=== PATIENT | female | born 1960 ===

== ENCOUNTER 2017-06-30 23:45 | Emergency (ER) | payer MEDICAID ==
[2017-07-01 00:11] VITALS: RESP 18; TEMP 98.7; O2SAT 97
[2017-07-01] MEDS ORDERED: Sodium Chloride 0.9% 1,000 ML IV STA (00:48)
--- NOTE | 2017-07-01 00:49 | ED PDOC ---
Arrival/HPI - General Chief Complaint: Back Pain Time Seen by Provider: 07/01/17 00:44 Historian: Patient - History of Present Illness Narrative History of Present Illness (Text): 07/01/17 00:45 A 56 year old female, with no significant past medical history, presents to the emergency department complaining of R sided abdominal pain since yesterday evening at 1:00. Patient reports pain radiates to right flank. Earlier today, patient found contents of blood when wiping. Patient notes experiencing nausea and increasing urinary frequency since yesterday, but denies of any fever, vomiting, diarrhea, constipation, dysuria, foul odor or discoloration to urine, or any other complaints. Also, patient mentions past surgical history of an appendectomy. Pt lion has known hx gallstones No PMD 07/01/17 04:48 Time/Duration: 24 hours (yesterday 1:00 in the evening) Symptom Onset: Sudden Symptom Course: Unchanged Past Medical History - Provider Review Nursing Documentation Reviewed: Yes - Reproductive Menopause: Yes (3 years ago) - Cardiac Hx Cardiac Disorders: Yes Hx Hypertension: Yes - Pulmonary Hx Respiratory Disorders: Yes Hx Asthma: Yes - Endocrine/Metabolic Hx Endocrine Disorders: Yes Hx Diabetes Mellitus Type 2: Yes - Gastrointestinal Hx Gastrointestinal Disorders: Yes Hx Gastritis: Yes - Psychiatric Hx Substance Use: No - Surgical History Hx Appendectomy: Yes Hx Tubal Ligation: Yes Family/Social History - Physician Review Nursing Documentation Reviewed: Yes Family/Social History: No Known Family HX Smoking Status: Never Smoked Hx Alcohol Use: No Hx Substance Use: No Allergies/Home Meds Allergies/Adverse Reactions: Allergies aspirin Allergy (Verified 07/01/17 00:09) SWELLING Home Medications: Home Meds Medication Instructions Recorded Confirmed Albuterol HFA [Ventolin HFA 90 2 puff IH PRN PRN 07/01/17 07/01/17 mcg/actuation (8 g)] Irbesartan 100 mg PO BID 07/01/17 07/01/17 Ranitidine HCl [Zantac 300] 300 mg PO BID 07/01/17 07/01/17 metFORMIN [glucOPHAGE] 500 mg PO BID 07/01/17 07/01/17 Review of Systems - Physician Review All systems were reviewed & negative as marked: Yes - Review of Systems Constitutional: absent: Fevers Gastrointestinal: Abdominal Pain (RLQ radiating to right flank (chief complaint non-contributory), Nausea. absent: Constipation, Vomiting Genitourinary Female: Frequency (increasing urinary frequency since yesterday). absent: Dysuria, Urine Output Changes (no foul odor or discoloration to urine) Physical Exam Vital Signs Reviewed: Yes Vital Signs Temp Pulse Resp BP Pulse Ox 07/01/17 02:58 85 18 157/86 H 97 07/01/17 00:10 98.7 F 108 H 18 176/80 H 97 Temperature: Afebrile Blood Pressure: Hypertensive Pulse: Regular Respiratory Rate: Normal Appearance: Positive for: Well-Appearing Pain Distress: None Mental Status: Positive for: Alert and Oriented X 3 - Systems Exam Head: Present: Atraumatic, Normocephalic Pupils: Present: PERRL Extroacular Muscles: Present: EOMI Conjunctiva: Present: Normal Mouth: Present: Moist Mucous Membranes Neck: Present: Normal Range of Motion Respiratory/Chest: Present: Clear to Auscultation, Good Air Exchange. No: Respiratory Distress, Accessory Muscle Use Cardiovascular: Present: Regular Rate and Rhythm, Normal S1, S2. No: Murmurs Abdomen: Present: Normal Bowel Sounds. No: Tenderness, Distention, Peritoneal Signs Rectal: No: Hemorrhoids Genitourinary/Pelvic Exam: No: Cervical Motion Tendernes Back: No: CVA Tenderness Upper Extremity: Present: NORMAL PULSES (+2 pulses). No: Cyanosis Lower Extremity: Present: Normal Inspection. No: Edema Neurological: Present: GCS=15, CN II-XII Intact, Speech Normal Skin: Present: Warm, Dry, Normal Color. No: Rashes Psychiatric: Present: Alert, Oriented x 3, Normal Insight, Normal Concentration Medical Decision Making ED Course and Treatment: 07/01/17 00:49 Impression: 56 year old female with RLQ abdominal pain radiating to right flank. Differential Diagnosis included but are not limited to: UTI vs. Renal Colic vs. Colitis Plan: -- Labs -- Urinalysis -- Morphine -- IV Fluids -- Gallbladder Ultrasound -- Reassess and disposition Progress Notes: 07/01/17 01:52 Labs have been reviewed and findings are unremarkable except for elevation in LFTs. Gallbladder Ultrasound to be ordered to rule out possible cholecystitis. 07/01/2017 04:13 Gallbladder Ultrasound FINDINGS: Liver: Fatty infiltration. No mass. No intrahepatic ductal dilatation. gallbladder: Gallstones. No wall thickening. No pericholecystic fluid. No sonographic Cruz's sign. common bile duct: Up to 0.75 cm in diameter. No stones. Pancreas: Unremarkable as visualized. Right kidney: Normal echogenicity. No hydronephrosis. IMPRESSION: 1. Cholelithiasis. 2. Mild biliary ductal dilatation. Consider MRCP. 3. Incidental/non-acute findings are described above. Dictator: Anthony Soto MD 07/01/17 04:36 Due to lack of signs of any present cholecystitis, without patient management due to biliary ductal dilatation, patient will be given opioids and instructed to come back if there is any worsening of fever or vomiting. Otherwise contact surgeon for cholecysectomy. - Lab Interpretations Lab Results: 07/01/17 00:54 07/01/17 01:10 Lab Results 07/01/17 01:10: Sodium 139, Potassium 4.6, Chloride 98, Carbon Dioxide 32, Anion Gap 14, BUN 11, Creatinine 0.7, Est GFR ( Amer) > 60, Est GFR (Non- Af Amer) > 60, Random Glucose 247 H, Calcium 10.1, Total Bilirubin 0.8, AST 115 H, ALT 138 H, Alkaline Phosphatase 111, Total Protein 8.6 H, Albumin 4.5, Globulin 4.0, Albumin/Globulin Ratio 1.1, Amylase 111 07/01/17 00:54: WBC 6.0, RBC 4.24, Hgb 13.4, Hct 38.0, MCV 89.6, MCH 31.6, MCHC 35.3, RDW 12.2, Plt Count 261, MPV 10.1, Gran % 59.2, Lymph % (Auto) 31.6, [place] % (Auto) 6.7 H, Eos % (Auto) 2.0, Baso % (Auto) 0.5, Gran # 3.52, Lymph # 1.9, [place] # 0.4, Eos # 0.1, Baso # 0.03 07/01/17 00:30: Urine Color Yellow, Urine Appearance Clear, Urine pH 6.0, Ur Specific [place] 1.025, Urine Protein 100 H, Urine Glucose (UA) 250 H, Urine Ketones 15 H, Urine Blood Trace-intact H, Urine Nitrate Negative, Urine Bilirubin Negative, Urine Urobilinogen 0.2, Ur Leukocyte Esterase Negative, Urine RBC 0 - 2, Urine WBC 0 - 2, Ur Epithelial Cells 0 - 2 I have reviewed the lab results: Yes - RAD Interpretation Radiology Orders: 07/01/17 01:49 GALLBLADDER & COMMON DUCT [US] Stat - Medication Orders Current Medication Orders: Sodium Chloride (Sodium Chloride 0.9%) 1,000 mls @ 100 mls/hr IV .Q10H STA Stop: 07/01/17 10:47 Last Admin: 07/01/17 01:14 Dose: 100 mls/hr eMAR Start Stop Document 07/01/17 01:14 OCS (Rec: 07/01/17 01:14 OCS [id number]) Intravenous Solution Start Date 07/01/17 Start Time 01:14 Discontinued Medications Morphine Sulfate (Morphine) 2 mg IVP STAT STA Stop: 07/01/17 00:55 Last Admin: 07/01/17 01:14 Dose: 2 mg MAR Pain Assessment Document 07/01/17 01:14 OCS (Rec: 07/01/17 01:16 OCS [id number]) Pain Reassessment Is this a pain reassessment? Yes Sleep Is patient sleeping during reassessment? No Presence of Pain Presence of Pain Yes Pain Scale Used Pain Scale Used Numeric Description Description Constant IVP Administration Document 07/01/17 01:14 OCS (Rec: 07/01/17 01:16 OCS [id number]) Charges for Administration # of IVP Administrations 1 Morphine Sulfate (Morphine) 4 mg IVP STAT STA Stop: 07/01/17 01:54 Last Admin: 07/01/17 02:03 Dose: 4 mg MAR Pain Assessment Document 07/01/17 02:03 OCS (Rec: 07/01/17 02:03 OCS [id number]) Pain Reassessment Is this a pain reassessment? Yes Sleep Is patient sleeping during reassessment? No Presence of Pain Presence of Pain Yes Pain Scale Used Pain Scale Used Numeric IVP Administration Document 07/01/17 02:03 OCS (Rec: 07/01/17 02:03 OCS [id number]) Charges for Administration # of IVP Administrations 1 Oxycodone/Acetaminophen (Percocet 5/325 Mg Tab) 2 tab PO STAT STA Stop: 07/01/17 04:38 - Scribe Statement The provider has reviewed the documentation as recorded by the Scribe Hanan Dabdi Provider Yuni Attestation: All medical record entries made by the Yuni were at my direction and personally dictated by me. I have reviewed the chart and agree that the record accurately reflects my personal performance of the history, physical exam, medical decision making, and the department course for this patient. I have also personally directed, reviewed, and agree with the discharge instructions and disposition. Disposition/Present on Arrival - Present on Arrival Any Indicators Present on Arrival: No History of DVT/PE: No History of Uncontrolled Diabetes: No Urinary Catheter: No History of Decub. Ulcer: No History Surgical Site Infection Following: None - Disposition Have Diagnosis and Disposition been Completed?: Yes Diagnosis: Biliary colic Disposition: HOME/ ROUTINE Disposition Time: 04:52 Patient Plan: Discharge Condition: FAIR Discharge Instructions (ExitCare): Biliary Colic (ED) Print Language: SOUTH SUDANESE Additional Instructions: Call surgeon for appt to arrange elective cholecystectomy.Return to ED for worsening pain,fever,vomiting Prescriptions: Acetaminophen/Hydrocodone Bi [Vicodin 300 mg-5 mg] 1 tab PO QID PRN #10 tab PRN Reason: Pain, Mild (1-3) Referrals: Umesh Sharma MD [Medical Doctor] - Follow up with primary Forms: Hua Kang (Montenegrin)
[2017-07-01] MEDS ORDERED: Morphine 2 mg/ml ISec IVP STA (00:54)
[2017-07-01 01:04] LABS: BASO # 0.03 K/mm3 (0.0-2.0); BASO % 0.5 % (0.0-3.0); EOS # 0.1 (0.0-0.7); GRAN # 3.52 (1.4-6.5); GRAN % 59.2 % (50.0-68.0); LYMPH # 1.9 (1.2-3.4); LYMPH % 31.6 % (22.0-35.0); MEAN CELL VOLUME 89.6 fl (80.0-105.0); MEAN CORPUSCULAR HEMOGLOBIN 31.6 pg (25.0-35.0); MEAN CORPUSCULAR HGB CONC 35.3 g/dl (31.0-37.0); MEAN PLATELET VOLUME 10.1 fl (7.0-11.0); MONO # 0.4 (0.1-0.6); MONO % 6.7 % (1.0-6.0); RED CELL DISTRIBUTION WIDTH 12.2 % (11.5-14.5)
[2017-07-01 01:05] LABS: URINE BILIRUBIN NEGATIVE (NEGATIVE); URINE BLOOD TRACE-INTACT (NEGATIVE); URINE GLUCOSE (UA) 250 mg/dL (NEGATIVE); URINE KETONE 15 mg/dL (NEGATIVE); URINE LEUKOCYTE ESTERASE NEGATIVE Leu/uL (NEGATIVE); URINE PROTEIN 100 mg/dL (<30 mg/dL); URINE UROBILINOGEN 0.2 E.U./dL (<1 E.U./dL)
[2017-07-01 01:10] LABS: URINE APPEARANCE CLEAR (CLEAR); URINE COLOR YELLOW (YELLOW)
[2017-07-01 01:24] LABS: URINE EPITHELIAL CELLS 0 - 2 /hpf (0-5); URINE RBC 0 - 2 /hpf (0-2); URINE WBC 0 - 2 /hpf (0-6)
[2017-07-01 01:34] LABS: ALB/GLOB RATIO 1.1 (1.1-1.8); ALKALINE PHOSPHATASE 111 U/L (38-126); ALT/SGPT 138 U/L (7-56); AMYLASE 111 U/L (35-125); AST/SGOT 115 U/L (14-36); BILIRUBIN,TOTAL 0.8 mg/dL (0.2-1.3); BLOOD UREA NITROGEN 11 mg/dL (7-21); CALCIUM 10.1 mg/dL (8.4-10.5); CARBON DIOXIDE 32 mmol/L (21-33); CHLORIDE 98 mmol/L (95-110); GFR AFRICAN-AMERICAN > 60; GLUCOSE,RANDOM 247 mg/dL (70-110); POTASSIUM 4.6 mmol/L (3.6-5.0); SODIUM 139 mmol/L (132-148); TOTAL PROTEIN 8.6 g/dL (5.8-8.3)
[2017-07-01] MEDS ORDERED: Morphine 4 mg/ml ISec IVP STA (01:53)
[2017-07-01 03:01] VITALS: BP 157/86; PULSE 85
--- NOTE | 2017-07-01 04:13 | US ---
EXAM: US Abdomen Limited, Right Upper Quadrant CLINICAL HISTORY: 56 years old, female; Pain; Abdominal pain; Generalized; Additional info: R sided abd pain, lfts elevated TECHNIQUE: Real-time ultrasound of the right upper quadrant with image documentation. COMPARISON: No relevant prior studies available. FINDINGS: Liver: Fatty infiltration. No mass. No intrahepatic ductal dilatation. Gallbladder: Gallstones. No wall thickening. No pericholecystic fluid. No sonographic Cruz's sign. Common bile duct: Up to 0.75 cm in diameter. No stones. Pancreas: Unremarkable as visualized. Right kidney: Normal echogenicity. No hydronephrosis. IMPRESSION: 1. Cholelithiasis. 2. Mild biliary ductal dilatation. Consider MRCP. 3. Incidental/non-acute findings are described above.
[2017-07-01] MEDS ORDERED: Oxycodone/Acetaminophen 5/325 mg Tab PO STA (04:37)
== END 2017-07-01 05:05 | disposition home or self-care (01) ==
LOC: ED 23:45
DX: K80.50 Calculus of bile duct without cholangitis or cholecystitis without obstruction (principal); E11.9 Type 2 diabetes mellitus without complications; I10 Essential (primary) hypertension
CPT/HCPCS: 76705; 80053; 81001; 82150; 85025; 96374; 96376; 99283; J2270; J7040

== ENCOUNTER 2017-07-01 18:33 | Inpatient (IN) | payer MEDICAID ==
[2017-07-01] MEDS ORDERED: Morphine 2 mg/ml ISec IVP STA ×2 (19:08→20:52)
[2017-07-01] MEDS ORDERED: Sodium Chloride 0.9% 1,000 ML IV STA (19:08)
--- NOTE | 2017-07-01 19:15 | ED PDOC ---
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 Pain is in R low back, radiates to front, intermittent, sharp/stabbing. Pt presented to ED yesterday for same- ab U/S positive for cholelithiasis. Pt sent home with pain medication, which helps alleviate pain. Eating food identified as aggravating factor. Admits to emesis (nb, bilious and food stuff) x 2, subjective fevers, chills. Admits to having symptoms before, 3 yrs ago in [facility]. Was referred to have cholecystectomy- never followed up. Denies changes in bowel habits, other complaints. PMH: HTN, DM, gastritis, hx biliary colic (2013) PSH: Appendectomy All: ASA SH: Denies ETOH, tobacco or illicit drug use PMD: Denies (Raina Roy) Past Medical History - Provider Review Nursing Documentation Reviewed: Yes - Cardiac Hx Cardiac Disorders: Yes Hx Hypertension: Yes - Pulmonary Hx Respiratory Disorders: Yes Hx Asthma: Yes - Neurological Hx Neurological Disorder: No - HEENT Hx HEENT Disorder: No Hx Blind: No - Renal Hx Renal Disorder: No - Endocrine/Metabolic Hx Endocrine Disorders: Yes Hx Diabetes Mellitus Type 2: Yes - Hematological/Oncological Hx Blood Disorders: No - Integumentary Hx Dermatological Disorder: No - Musculoskeletal/Rheumatological Hx Musculoskeletal Disorders: No - Gastrointestinal Hx Gastrointestinal Disorders: Yes Hx Gastritis: Yes - Genitourinary/Gynecological Hx Genitourinary Disorders: No - Psychiatric Hx Psychophysiologic Disorder: No Hx Substance Use: No - Surgical History Hx Appendectomy: Yes Hx Tubal Ligation: Yes <Raina Roy - Last Filed: 07/01/17 21:00> Family/Social History - Physician Review Nursing Documentation Reviewed: Yes Family/Social History: No Known Family HX Smoking Status: Never Smoked Hx Alcohol Use: No Hx Substance Use: No <Raina Roy - Last Filed: 07/01/17 21:00> Allergies/Home Meds <ManuelaRaina - Last Filed: 07/01/17 21:00> <Stacie Lundberg - Last Filed: 07/01/17 21:33> Allergies/Adverse Reactions: Allergies aspirin Allergy (Verified 07/01/17 18:40) SWELLING Home Medications: Home Meds Medication Instructions Recorded Confirmed Albuterol HFA [Ventolin HFA 90 2 puff IH PRN PRN 07/01/17 07/01/17 mcg/actuation (8 g)] Irbesartan 100 mg PO BID 07/01/17 07/01/17 Ranitidine HCl [Zantac 300] 300 mg PO BID 07/01/17 07/01/17 metFORMIN [glucOPHAGE] 500 mg PO BID 07/01/17 07/01/17 Review of Systems - Physician Review All systems were reviewed & negative as marked: Yes - Review of Systems Constitutional: Fevers (subjective). absent: Normal Eyes: Normal. absent: Vision Changes ENT: Normal. absent: Sore Throat Respiratory: Normal. absent: SOB Cardiovascular: Normal. absent: Chest Pain Gastrointestinal: Abdominal Pain, Nausea, Vomiting, Appetite Changes, Food Intolerance. absent: Normal, Constipation, Diarrhea, Hematochezia, Hematemesis Genitourinary Female: Normal. absent: Dysuria, Frequency, Hematuria Musculoskeletal: Back Pain. absent: Normal Skin: Normal. absent: Rash Neurological: Normal. absent: Headache <RoyRaina - Last Filed: 07/01/17 21:00> Physical Exam Vital Signs Reviewed: Yes Temperature: Afebrile Blood Pressure: Normal Pulse: Regular Respiratory Rate: Normal Appearance: Positive for: Non-Toxic, Uncomfortable Pain Distress: Moderate Mental Status: Positive for: Alert and Oriented X 3 - Systems Exam Head: Present: Atraumatic, Normocephalic Pupils: Present: PERRL Extroacular Muscles: Present: EOMI Conjunctiva: Present: Normal Mouth: Present: Moist Mucous Membranes Nose (External): Present: Atraumatic Neck: Present: Normal Range of Motion Respiratory/Chest: Present: Clear to Auscultation, Good Air Exchange. No: Respiratory Distress, Accessory Muscle Use Cardiovascular: Present: Regular Rate and Rhythm, Normal S1, S2. No: Murmurs Abdomen: Present: Tenderness (RLQ, mild), Normal Bowel Sounds. No: Distention, Peritoneal Signs, Rebound, Guarding, Scars Back: Present: Paraspinal Tenderness (R lower back). No: Normal Inspection, CVA Tenderness Upper Extremity: Present: Normal Inspection. No: Cyanosis, Edema Lower Extremity: Present: Normal Inspection. No: Edema Neurological: Present: GCS=15, CN II-XII Intact, Speech Normal Skin: Present: Warm, Dry, Normal Color. No: Rashes Psychiatric: Present: Alert, Oriented x 3, Normal Insight, Normal Concentration <Raina Roy - Last Filed: 07/01/17 21:00> <Stacie Lundberg - Last Filed: 07/01/17 21:33> Vital Signs Temp Pulse Resp BP Pulse Ox 07/01/17 20:50 95 H 18 143/71 95 07/01/17 18:37 98.4 F 88 16 133/86 97 Medical Decision Making <Raina Roy - Last Filed: 07/01/17 21:00> <Stacie Lundberg - Last Filed: 07/01/17 21:33> ED Course and Treatment: 07/01/17 19:17 Pt seen/evaluated, will do lab work, given anti-emetic, pain meds, and IVF 07/01/17 20:59 Spoke with medical management trainer regarding admission. Spoke to vice president underwriting regarding consultation. (Raina Roy) Patient seen and examined with resident. Came up with treatment and disposition plan together. A 56 year old female who is diabetic presents with acute abdominal pain accompanied by nausea. Patient is in severe pain. Will order IV morphine and Zofran. Patient was recently diagnosed with gallstones. Ultrasound report shows: Report Date : 07/01/2017 04:13:00 EXAM: US Abdomen Limited, Right Upper Quadrant Dictator : Anthony Soto MD IMPRESSION: 1. Cholelithiasis. 2. Mild biliary ductal dilatation. Consider MRCP. 3. Incidental/non-acute findings are described above. On re-evaluation, patient continues to complain of persistent pain. Thus will admit to hospitalist service and consult surgery. Patient denies chest pain or shortness of breath. EKG and cardiac enzymes unremarkable. (Stacie Lundberg) - Lab Interpretations Lab Results: 07/01/17 19:44 07/01/17 19:44 Lab Results 07/01/17 20:45: Urine Color Yellow, Urine Appearance Clear, Urine pH 6.0, Ur Specific [place] >= 1.030, Urine Protein 100 H, Urine Glucose (UA) >=1000, Urine Ketones Trace H, Urine Blood Negative, Urine Nitrate Negative, Urine Bilirubin Negative, Urine Urobilinogen 0.2, Ur Leukocyte Esterase Negative, Urine RBC 0 - 2, Urine WBC 1 - 3, Ur Epithelial Cells 6 - 8, Amorphous Sediment Few, Urine Bacteria Many, Urine Other [place] 07/01/17 19:44: PT 10.8, INR 0.99, APTT 28.6 07/01/17 19:44: pO2 40, VBG pH 7.35, VBG pCO2 60.0, VBG HCO3 33.1 H, VBG Total CO2 34.9 H, VBG O2 Sat (Calc) 79.9 H, VBG Base Excess 5.6 H, VBG Potassium 4.2, Sodium 137.0, Chloride 100.0, Glucose 260 H, Lactate 1.2, FiO2 21.0, Venous Blood Potassium 4.2 07/01/17 19:44: Sodium 136, Chloride 97 L, Potassium 4.1, Carbon Dioxide 31, Anion Gap 12, BUN 12, Creatinine 0.7, Est GFR ( Amer) > 60, Est GFR (Non- Af Amer) > 60, Random Glucose 243 H, Calcium 9.3, Total Bilirubin 0.8, AST 98 H , ALT 127 H, Alkaline Phosphatase 97, Lactate Dehydrogenase 547, Total Creatine Kinase 71, Troponin I < 0.01, Total Protein 7.8, Albumin 4.2, Globulin 3.6, Albumin/Globulin Ratio 1.2, Lipase 153 07/01/17 19:44: WBC 4.2 L D, RBC 4.06, Hgb 12.5, Hct 36.6, MCV 90.1, MCH 30.8, MCHC 34.2, RDW 11.9, Plt Count 227, MPV 9.5, Gran % 44.8 L, Lymph % (Auto) 41.9 H, [place] % (Auto) 10.2 H, Eos % (Auto) 2.9, Baso % (Auto) 0.2, Gran # 1.88, Lymph # 1.8, [place] # 0.4, Eos # 0.1, Baso # 0.01 - RAD Interpretation Radiology Orders: 07/01/17 19:22 CXR [CHEST PORTABLE] [RAD] Stat - Medication Orders Current Medication Orders: Albuterol (Ventolin Hfa 90 Mcg/Actuation (8 G)) 2 puff IH PRN PRN PRN Reason: Shortness of Breath Dextrose/Sodium Chloride (Dextrose 5%/0.45% Ns 1000 Ml) 1,000 mls @ 100 mls/hr IV .Q10H ELI Ampicillin Sodium/Sulbactam (Sodium 3 gm/ Sodium Chloride) 100 mls @ 200 mls/ hr IVPB Q6 ELI PRN Reason: Protocol Ampicillin Sodium/Sulbactam (Sodium 3 gm/ Sodium Chloride) 100 mls @ 100 mls/ hr IVPB STAT STA PRN Reason: Protocol Stop: 07/01/17 22:14 Morphine Sulfate (Morphine) 2 mg IVP Q4H PRN PRN Reason: Pain, moderate (4-7) Non-Formulary Medication (Irbesartan [Irbesartan]) 100 mg PO BID ELI Non-Formulary Medication (Ranitidine Hcl [Zantac]) 300 mg PO BID ELI Ondansetron HCl (Zofran Inj) 4 mg IVP Q4H PRN PRN Reason: Nausea/Vomiting Pantoprazole Sodium (Protonix Inj) 40 mg IVP DAILY ELI Discontinued Medications Sodium Chloride (Sodium Chloride 0.9%) 1,000 mls @ 999 mls/hr IV .Q1H1M STA Stop: 07/01/17 20:08 Last Admin: 07/01/17 19:55 Dose: 999 mls/hr eMAR Start Stop Document 07/01/17 19:55 [email or web address] (Rec: 07/01/17 19:56 [email or web address] [facility] [id number][place] Intravenous Solution Start Date 07/01/17 Start Time 19:56 End Date 07/01/17 Morphine Sulfate (Morphine) 2 mg IVP STAT STA Stop: 07/01/17 19:09 Last Admin: 07/01/17 19:54 Dose: 2 mg MAR Pain Assessment Document 07/01/17 19:54 [email or web address] (Rec: 07/01/17 19:[address]- [id number]) Pain Reassessment Is this a pain reassessment? No Sleep Is patient sleeping during reassessment? No Presence of Pain Presence of Pain Yes Pain Scale Used Pain Scale Used Numeric Location Pain Location Body Site Abdomen Description Description Constant Intensity of Pain at present 8 Pain Behavior Facial Grimacing Aggravating Factors Changing Position Alleviating Factors/Management Medication Techniques IVP Administration Document 07/01/17 19:54 [email or web address] (Rec: 07/01/17 19:[address] [id number]) Charges for Administration # of IVP Administrations 1 Morphine Sulfate (Morphine) 2 mg IVP STAT STA Stop: 07/01/17 21:10 Ondansetron HCl (Zofran Inj) 4 mg IVP STAT STA Stop: 07/01/17 19:09 Last Admin: 07/01/17 19:53 Dose: 4 mg IVP Administration Document 07/01/17 19:53 [facility] (Rec: 07/01/17 19:[address] [id number]) Charges for Administration # of IVP Administrations 1 <Raina Roy - Last Filed: 07/01/17 21:00> - PA / [employer] / Resident Statement MD/DO has reviewed & agrees with the documentation as recorded. MD/DO has examined the patient and agrees with the treatment plan. - Scribe Statement The provider has reviewed the documentation as recorded by the Scribe <Stacie Lundberg - Last Filed: 07/01/17 21:33> - Scribe Statement Nancy Terry Provider Scribe Attestation: All medical record entries made by the Scribe were at my direction and personally dictated by me. I have reviewed the chart and agree that the record accurately reflects my personal performance of the history, physical exam, medical decision making, and the department course for this patient. I have also personally directed, reviewed, and agree with the discharge instructions and disposition. (Stacie Lundberg) Disposition/Present on Arrival - Present on Arrival Any Indicators Present on Arrival: No History of DVT/PE: No History of Uncontrolled Diabetes: No Urinary Catheter: No History of Decub. Ulcer: No History Surgical Site Infection Following: None - Disposition Have Diagnosis and Disposition been Completed?: Yes Disposition Time: 21:00 Patient Plan: Admission <Raina Roy - Last Filed: 07/01/17 21:00> <Stacie Lundberg - Last Filed: 07/01/17 21:33> - Disposition Diagnosis: Biliary colic Disposition: HOSPITALIZED Patient Problems: Current Active Problems Problem Status Onset Biliary colic Acute Condition: FAIR
[2017-07-01 20:15] LABS: BASO # 0.01 K/mm3 (0.0-2.0); BASO % 0.2 % (0.0-3.0); EOS # 0.1 (0.0-0.7); EOS % 2.9 % (1.5-5.0); GRAN # 1.88 (1.4-6.5); GRAN % 44.8 % (50.0-68.0); HEMATOCRIT 36.6 % (36.0-48.0); LYMPH # 1.8 (1.2-3.4); LYMPH % 41.9 % (22.0-35.0); MEAN CELL VOLUME 90.1 fl (80.0-105.0); MEAN CORPUSCULAR HEMOGLOBIN 30.8 pg (25.0-35.0); MEAN CORPUSCULAR HGB CONC 34.2 g/dl (31.0-37.0); MEAN PLATELET VOLUME 9.5 fl (7.0-11.0); MONO # 0.4 (0.1-0.6); MONO % 10.2 % (1.0-6.0); RED CELL DISTRIBUTION WIDTH 11.9 % (11.5-14.5); WHITE BLOOD COUNT 4.2 10^3/ul (4.5-11.0)
[2017-07-01 20:16] LABS: VENOUS BLOOD GAS BASE EXCESS 5.6 mmol/L (0.0-2.0); VENOUS BLOOD PH 7.35 (7.32-7.43)
[2017-07-01 20:32] LABS: ALB/GLOB RATIO 1.2 (1.1-1.8); ALKALINE PHOSPHATASE 97 U/L (38-126); ALT/SGPT 127 U/L (7-56); AST/SGOT 98 U/L (14-36); BILIRUBIN,TOTAL 0.8 mg/dL (0.2-1.3); BLOOD UREA NITROGEN 12 mg/dL (7-21); CALCIUM 9.3 mg/dL (8.4-10.5); CARBON DIOXIDE 31 mmol/L (21-33); CHLORIDE 97 mmol/L (98-107); GFR AFRICAN-AMERICAN > 60; GLUCOSE,RANDOM 243 mg/dL (70-110); LIPASE 153 U/L (23-300); POTASSIUM 4.1 mmol/L (3.6-5.0); SODIUM 136 mmol/L (132-148); TOTAL PROTEIN 7.8 g/dL (5.8-8.3)
[2017-07-01 20:45] LABS: TROPONIN I < 0.01 ng/mL
[2017-07-01 20:49] LABS: INR 0.99 (0.93-1.08); PARTIAL THROMBOPLASTIN TIME 28.6 Seconds (25.1-36.5)
[2017-07-01 20:58] LABS: URINE BILIRUBIN NEGATIVE (NEGATIVE); URINE BLOOD NEGATIVE (NEGATIVE); URINE GLUCOSE (UA) >=1000 mg/dL (NEGATIVE); URINE KETONE TRACE mg/dL (NEGATIVE); URINE LEUKOCYTE ESTERASE NEGATIVE Leu/uL (NEGATIVE); URINE PROTEIN 100 mg/dL (<30 mg/dL); URINE UROBILINOGEN 0.2 E.U./dL (<1 E.U./dL)
[2017-07-01 20:59] LABS: URINE APPEARANCE CLEAR (CLEAR); URINE COLOR YELLOW (YELLOW)
[2017-07-01] MEDS ORDERED: Morphine 4 mg/ml ISec IVP STA (21:09)
[2017-07-01 21:14] LABS: URINE BACTERIA MANY (NEG); URINE RBC 0 - 2 /hpf (0-2)
[2017-07-01 21:15] LABS: URINE AMORPHOUS SEDIMENT FEW
[2017-07-01] MEDS ORDERED: Morphine 2 mg/ml ISec IVP PRN (21:15)
[2017-07-01] MEDS ORDERED: Albuterol HFA 90 mcg/actuation (8 g) IH PRN (21:18)
--- NOTE | 2017-07-01 21:39 | CP.PCM.CON ---
<Yo Boston - Last Filed: 07/01/17 21:32> History of Present Illness - History of Present Illness History of Present Illness: Surgery 56 F w PMH of HTN, DM cholelithiasis came w R abd pain that started 3 days ago. Pain radiated to her R back. Pain is worsening with food. Reports N/V/anorexia. Denies F/D/CP/SOB/hematuria/hematemesis/hemataochezia/sick contact/WINTER/ constipation. Pt is moved from [place]. She had similar attacks in the past. Pt presented to ED yesterday for same- ab U/S positive for cholelithiasis. Was sent home to follow up for elective surgery. Pt came back with worsening pain and vomiting. Surgery is consulted for symptomatic cholelithiasis PMH: HTN, DM, gastritis, hx biliary colic PSH: Appendectomy All: ASA SH: Denies ETOH, tobacco or illicit drug use Review of Systems - Review of Systems Review of Systems: See HPI Past Patient History - Past Social History Smoking Status: Never Smoked - CARDIAC Hx Cardiac Disorders: Yes Hx Hypertension: Yes - PULMONARY Hx Respiratory Disorders: Yes Hx Asthma: Yes - NEUROLOGICAL Hx Neurological Disorder: No - HEENT Hx HEENT Problems: No Hx Blind: No - RENAL Hx Chronic Kidney Disease: No - ENDOCRINE/METABOLIC Hx Endocrine Disorders: Yes Hx Diabetes Mellitus Type 2: Yes - HEMATOLOGICAL/ONCOLOGICAL Hx Blood Disorders: No - INTEGUMENTARY Hx Dermatological Problems: No - MUSCULOSKELETAL/RHEUMATOLOGICAL Hx Musculoskeletal Disorders: No - GASTROINTESTINAL Hx Gastrointestinal Disorders: Yes Hx Gastritis: Yes - GENITOURINARY/GYNECOLOGICAL Hx Genitourinary Disorders: No - PSYCHIATRIC Hx Psychophysiologic Disorder: No Hx Substance Use: No - SURGICAL HISTORY Hx Appendectomy: Yes Hx Tubal Ligation: Yes Meds Allergies/Adverse Reactions: Allergies Allergy/AdvReac Type Severity Reaction Status Date / Time aspirin Allergy SWELLING Verified 07/01/17 18:40 - Medications Medications: Current Medications Albuterol (Ventolin Hfa 90 Mcg/Actuation (8 G)) 2 puff IH PRN PRN PRN Reason: Shortness of Breath Dextrose/Sodium Chloride (Dextrose 5%/0.45% Ns 1000 Ml) 1,000 mls @ 100 mls/hr IV .Q10H ELI Ampicillin Sodium/Sulbactam (Sodium 3 gm/ Sodium Chloride) 100 mls @ 200 mls/ hr IVPB Q6 ELI PRN Reason: Protocol Ampicillin Sodium/Sulbactam (Sodium 3 gm/ Sodium Chloride) 100 mls @ 100 mls/ hr IVPB STAT STA PRN Reason: Protocol Stop: 07/01/17 22:14 Morphine Sulfate (Morphine) 2 mg IVP Q4H PRN PRN Reason: Pain, moderate (4-7) Non-Formulary Medication (Irbesartan [Irbesartan]) 100 mg PO BID [facility] Non-Formulary Medication (Ranitidine Hcl [Zantac]) 300 mg PO BID [facility] Ondansetron HCl (Zofran Inj) 4 mg IVP Q4H PRN PRN Reason: Nausea/Vomiting Pantoprazole Sodium (Protonix Inj) 40 mg IVP DAILY [facility] Physical Exam - Constitutional Appears: Non-toxic - Head Exam Head Exam: ATRAUMATIC, NORMAL INSPECTION, NORMOCEPHALIC - Eye Exam Eye Exam: EOMI, Normal appearance, PERRL Pupil Exam: NORMAL ACCOMODATION, PERRL - ENT Exam ENT Exam: Mucous Membranes Moist, Normal Exam - Neck Exam Neck exam: Positive for: Normal Inspection - Respiratory Exam Respiratory Exam: Clear to Auscultation Bilateral, NORMAL BREATHING PATTERN - Cardiovascular Exam Cardiovascular Exam: REGULAR RHYTHM - GI/Abdominal Exam GI & Abdominal Exam: Normal Bowel Sounds, Soft, Tenderness Additional comments: R abd TTP - Rectal Exam Rectal Exam: NORMAL INSPECTION - Exam Exam: NORMAL INSPECTION - Extremities Exam Extremities exam: Positive for: normal inspection - Back Exam Back exam: NORMAL INSPECTION - Neurological Exam Neurological exam: Alert, CN II-XII Intact, Normal Gait, Oriented x3, Reflexes Normal - Psychiatric Exam Psychiatric exam: Normal Affect, Normal Mood - Skin Skin Exam: Dry, Intact, Normal Color, Warm Results - Vital Signs Recent Vital Signs: Last Vital Signs Temp 98.4 F 07/01/17 18:37 Pulse 95 H 07/01/17 20:50 Resp 18 07/01/17 20:50 BP 143/71 07/01/17 20:50 Pulse Ox 95 07/01/17 20:50 - Labs Result Diagrams: 07/01/17 19:44 07/01/17 19:44 Labs: Laboratory Results - last 24 hr 07/01/17 07/01/17 07/01/17 19:44 19:44 19:44 WBC 4.2 L D RBC 4.06 Hgb 12.5 Hct 36.6 MCV 90.1 MCH 30.8 MCHC 34.2 RDW 11.9 Plt Count 227 MPV 9.5 Gran % 44.8 L Lymph % (Auto) 41.9 H [place] % (Auto) 10.2 H Eos % (Auto) 2.9 Baso % (Auto) 0.2 Gran # 1.88 Lymph # 1.8 [place] # 0.4 Eos # 0.1 Baso # 0.01 PT INR APTT pO2 40 VBG pH 7.35 VBG pCO2 60.0 VBG HCO3 33.1 H VBG Total CO2 34.9 H VBG O2 Sat (Calc) 79.9 H VBG Base Excess 5.6 H VBG Potassium 4.2 Sodium 136 137.0 Chloride 97 L 100.0 Glucose 260 H Lactate 1.2 FiO2 21.0 Potassium 4.1 Carbon Dioxide 31 Anion Gap 12 BUN 12 Creatinine 0.7 Est GFR ( Amer) > 60 Est GFR (Non-Af Amer) > 60 Random Glucose 243 H Calcium 9.3 Total Bilirubin 0.8 AST 98 H ALT 127 H Alkaline Phosphatase 97 Lactate Dehydrogenase 547 Total Creatine Kinase 71 Troponin I < 0.01 Total Protein 7.8 Albumin 4.2 Globulin 3.6 Albumin/Globulin Ratio 1.2 Lipase 153 Venous Blood Potassium 4.2 Urine Color Urine Appearance Urine pH Ur Specific [place] Urine Protein Urine Glucose (UA) Urine Ketones Urine Blood Urine Nitrate Urine Bilirubin Urine Urobilinogen Ur Leukocyte Esterase Urine RBC Urine WBC Ur Epithelial Cells Amorphous Sediment Urine Bacteria Urine Other 07/01/17 07/01/17 19:44 20:45 WBC RBC Hgb Hct MCV MCH MCHC RDW Plt Count MPV Gran % Lymph % (Auto) [place] % (Auto) Eos % (Auto) Baso % (Auto) Gran # Lymph # [place] # Eos # Baso # PT 10.8 INR 0.99 APTT 28.6 pO2 VBG pH VBG pCO2 VBG HCO3 VBG Total CO2 VBG O2 Sat (Calc) VBG Base Excess VBG Potassium Sodium Chloride Glucose Lactate FiO2 Potassium Carbon Dioxide Anion Gap BUN Creatinine Est GFR ( Amer) Est GFR (Non-Af Amer) Random Glucose Calcium Total Bilirubin AST ALT Alkaline Phosphatase Lactate Dehydrogenase Total Creatine Kinase Troponin I Total Protein Albumin Globulin Albumin/Globulin Ratio Lipase Venous Blood Potassium Urine Color Yellow Urine Appearance Clear Urine pH 6.0 Ur Specific [place] >= 1.030 Urine Protein 100 H Urine Glucose (UA) >=1000 Urine Ketones Trace H Urine Blood Negative Urine Nitrate Negative Urine Bilirubin Negative Urine Urobilinogen 0.2 Ur Leukocyte Esterase Negative Urine RBC 0 - 2 Urine WBC 1 - 3 Ur Epithelial Cells 6 - 8 Amorphous Sediment Few Urine Bacteria Many Urine Other Uyeast Assessment & Plan - Assessment and Plan (Free Text) Assessment: Symptomatic Cholelithiasis US cholelithiasis -f/u AM labs -Pain control -Nausea control -NPO -IVF -Medical management -Will reevaluate in AM Dr. Sharma <Umesh Sharma - Last Filed: 07/04/17 18:04> Meds - Medications Medications: Current Medications Albuterol Sulfate (Albuterol 0.083% Inhal Yulissa (2.5 Mg/3 Ml) Ud) 2.5 mg IH [id number] PRN PRN Reason: Shortness of Breath Dextrose/Sodium Chloride (Dextrose 5%/0.45% Ns 1000 Ml) 1,000 mls @ 100 mls/hr IV .Q10H [facility] Last Admin: 07/04/17 12:18 Dose: 100 mls/hr Ampicillin Sodium/Sulbactam (Sodium 3 gm/ Sodium Chloride) 100 mls @ 200 mls/ hr IVPB Q6 ELI PRN Reason: Protocol Last Admin: 07/04/17 12:19 Dose: 200 mls/hr Ketorolac Tromethamine (Toradol) 30 mg IVP Q6 PRN PRN Reason: Pain, moderate (4-7) Last Admin: 07/04/17 16:36 Dose: 30 mg Losartan Potassium (Cozaar) 25 mg PO BID [facility] Last Admin: 07/04/17 10:09 Dose: 25 mg Morphine Sulfate (Morphine) 2 mg IVP Q4H PRN PRN Reason: Pain, moderate (4-7) Stop: 07/04/17 21:58 Last Admin: 07/03/17 15:08 Dose: 2 mg Ondansetron HCl (Zofran Inj) 4 mg IVP Q4H PRN PRN Reason: Nausea/Vomiting Pantoprazole Sodium (Protonix Inj) 40 mg IVP DAILY [facility] Last Admin: 07/04/17 10:09 Dose: 40 mg Polyethylene Glycol (Miralax) 17 gm PO DAILY [facility] Last Admin: 07/04/17 10:09 Dose: 17 gm Results - Vital Signs Recent Vital Signs: Last Vital Signs Temp 98 F 07/04/17 16:00 Pulse 81 07/04/17 16:00 Resp 20 07/04/17 16:00 BP 155/84 H 07/04/17 16:00 Pulse Ox 98 07/04/17 16:00 - Labs Result Diagrams: 07/04/17 06:30 07/04/17 06:30 Labs: Laboratory Results - last 24 hr 07/04/17 07/04/17 07/04/17 06:30 06:30 07:23 WBC 4.4 L RBC 3.83 Hgb 11.5 L Hct 33.9 L MCV 88.5 MCH 30.0 MCHC 33.9 RDW 11.9 Plt Count 206 MPV 9.3 Gran % 43.9 L Lymph % (Auto) 38.7 H [place] % (Auto) 9.6 H Eos % (Auto) 7.6 H Baso % (Auto) 0.2 Gran # 1.92 Lymph # 1.7 [place] # 0.4 Eos # 0.3 Baso # 0.01 Sodium 143 Potassium 4.0 Chloride 105 Carbon Dioxide 30 Anion Gap 12 BUN 8 Creatinine 0.7 Est GFR ( Amer) > 60 Est GFR (Non-Af Amer) > 60 POC Glucose (mg/dL) 251 H Random Glucose 233 H Calcium 8.9 Phosphorus 3.9 Magnesium 1.8 Total Bilirubin 0.8 AST 79 H ALT 102 H Alkaline Phosphatase 79 Total Protein 6.6 Albumin 3.4 Globulin 3.2 Albumin/Globulin Ratio 1.1 07/04/17 07/04/17 11:18 16:20 WBC RBC Hgb Hct MCV MCH MCHC RDW Plt Count MPV Gran % Lymph % (Auto) [place] % (Auto) Eos % (Auto) Baso % (Auto) Gran # Lymph # [place] # Eos # Baso # Sodium Potassium Chloride Carbon Dioxide Anion Gap BUN Creatinine Est GFR ( Amer) Est GFR (Non-Af Amer) POC Glucose (mg/dL) 261 H 236 H Random Glucose Calcium Phosphorus Magnesium Total Bilirubin AST ALT Alkaline Phosphatase Total Protein Albumin Globulin Albumin/Globulin Ratio Attending/Attestation - Attestation I have personally seen and examined this patient.: Yes I have fully participated in the care of the patient.: Yes I have reviewed all pertinent clinical information: Yes Notes (Text): Pt was seen and examined at bedside Agree with above note and assessment Pt with cholelithiasis and Cholecystitis with Dilated CBD RUQ tenderness Labs and radiology reviewed Pt would need MRCP GI consult LFT in am C/w IV antibiotics Plan d.w pt in detail Risk and benefit explaine in detail.
[2017-07-01] MEDS ORDERED: Albuterol 0.083% Inhal Sol (2.5 mg/3 mL) UD IH PRN (21:55)
[2017-07-01] MEDS ORDERED: Morphine 4 mg/ml ISec IVP PRN (21:57)
[2017-07-01] MEDS: Dextrose 5%/0.45% NS 1,000 ML IV SCH (22:27)
--- NOTE | 2017-07-02 03:15 | CP.PCM.HP ---
<Royer Brown - Last Filed: 07/02/17 03:22> History of Present Illness - History of Present Illness History of Present Illness: This is a 56 year old female with a past medical history of hypertension, diabetes, and gastritis who comes in with right lower back pain and ruq pain for the past three days . The patient says the it starts in the right lower back and radiates to the right upper quadrant. The patient was describes the pain as sharp in nature and rates it a 10/10 in severity. The patient also reports three episodes of non-bilioius, non-bloody vomit in conjunction with the symptoms. The patient also reports chills. The patient denies any chest pain , lightheadedness, dizziness, chages in vision, constipation, diarrhea, numbness or tingling in the hands or feet, or any other complaints. PMD: NONE Past medical history: see HPI Past surgical history: Appendectomy Allergies: Aspirin Past surgical history: Denies etoh, tobacco, or illicit drug use Present on Admission - Present on Admission Any Indicators Present on Admission: No Review of Systems - Constitutional Constitutional: Chills. absent: Headache, Weight Loss, Weakness - EENT Eyes: absent: Blurred Vision, Change in Vision, Dry Eye, Sees Flashes, Loss of Vision Ears: absent: Decreased Hearing, Ear Discharge, Disequilibrium, Dizziness Nose/Mouth/Throat: absent: Nasal Congestion, Nose Pain, Dry Mouth, Dysphagia - Cardiovascular Cardiovascular: absent: Chest Pain, Diaphoresis, Leg Edema, Rapid Heart Rate - Respiratory Respiratory: absent: Cough, Hemoptysis, Snoring - Gastrointestinal Gastrointestinal: Abdominal Pain, Vomiting. absent: Diarrhea, Hematemesis, Hematochezia - Genitourinary Genitourinary: absent: Change in Urinary Stream, Nocturia - Musculoskeletal Musculoskeletal: absent: Arthralgias, Atrophy, Muscle Cramps, Muscle Weakness - Integumentary Integumentary: absent: Bleeding Lesions, New Lesions, Swelling - Neurological Neurological: absent: Abnormal Hearing, Loss of Vision, Syncope, Vertigo, Weakness - Psychiatric Psychiatric: absent: Anxiety, Mood Swings, Visual Hallucinations, Tactile Hallucinations - Endocrine Endocrine: absent: Excessive Sweating, Polydipsia, Polyphagia, Polyuria Past Patient History - Past Social History Smoking Status: Never Smoked - CARDIAC Hx Cardiac Disorders: Yes Hx Hypertension: Yes - PULMONARY Hx Respiratory Disorders: Yes Hx Asthma: Yes - NEUROLOGICAL Hx Neurological Disorder: No - HEENT Hx HEENT Problems: No Hx Blind: No - RENAL Hx Chronic Kidney Disease: No - ENDOCRINE/METABOLIC Hx Endocrine Disorders: Yes Hx Diabetes Mellitus Type 2: Yes - HEMATOLOGICAL/ONCOLOGICAL Hx Blood Disorders: No - INTEGUMENTARY Hx Dermatological Problems: No - MUSCULOSKELETAL/RHEUMATOLOGICAL Hx Musculoskeletal Disorders: No Hx Falls: No - GASTROINTESTINAL Hx Gastrointestinal Disorders: Yes - GENITOURINARY/GYNECOLOGICAL Hx Genitourinary Disorders: No - PSYCHIATRIC Hx Psychophysiologic Disorder: No - SURGICAL HISTORY Hx Appendectomy: Yes Meds Allergies/Adverse Reactions: Allergies Allergy/AdvReac Type Severity Reaction Status Date / Time aspirin Allergy SWELLING Verified 07/01/17 18:40 Physical Exam - Head Exam Head Exam: ATRAUMATIC, NORMAL INSPECTION, NORMOCEPHALIC - Eye Exam Eye Exam: EOMI, Normal appearance, PERRL Pupil Exam: NORMAL ACCOMODATION, PERRL. absent: Irregular, Unequal - ENT Exam ENT Exam: Mucous Membranes Moist, Normal Exam, Normal Oropharynx - Neck Exam Neck exam: Positive for: Normal Inspection. Negative for: Lymphadenopathy, Thyromegaly - Respiratory Exam Respiratory Exam: Clear to Auscultation Bilateral, NORMAL BREATHING PATTERN. absent: Accessory Muscle Use, Chest Wall Tenderness, Prolonged Expiratory Phase , Respiratory Distress - Cardiovascular Exam Cardiovascular Exam: REGULAR RHYTHM, +S1, +S2. absent: Gallop, Rubs - GI/Abdominal Exam GI & Abdominal Exam: Normal Bowel Sounds, Tenderness. absent: Mass, Pulsatile Mass, Rigid - Extremities Exam Extremities exam: Positive for: full ROM, normal inspection. Negative for: pedal edema, tenderness - Back Exam Back exam: NORMAL INSPECTION. absent: CVA tenderness (L), CVA tenderness (R), paraspinal tenderness - Neurological Exam Neurological exam: Alert, CN II-XII Intact, Oriented x3 - Psychiatric Exam Psychiatric exam: Normal Affect, Normal Mood - Skin Skin Exam: Dry, Intact Results - Vital Signs Recent Vital Signs: Last Vital Signs Temp 98.4 F 07/01/17 18:37 Pulse 91 H 07/01/17 23:21 Resp 18 07/01/17 23:52 BP 138/98 H 07/01/17 23:21 Pulse Ox 99 07/01/17 23:21 - Labs Result Diagrams: 07/01/17 19:44 07/01/17 19:44 Assessment & Plan - Assessment and Plan (Free Text) Assessment: This is a 56 year old female with a past medical history of hypertension, type II diabetes and gastritis who is being admitted for intractable ruq pain and biliary colic. Plan: 1.Biliary colic/RUQ pain -Abdominal u/s done in the emergency department showed chelelithiasis and mild biliary ductal dilatation and to consider non-emergent MRCP. -Surgery consulted. Will f/u with rec's. -NPO. -Pain management. -IV fluids. 2. Hypertension -continue home meds. 3. Diabetes -home meds held. ISS -Accu checks ACHS GI ppx -Protonix DVT ppx -SCD's <Karina BUSTAMANTE,uKrtis - Last Filed: 07/10/17 10:26> Results - Vital Signs Recent Vital Signs: Last Vital Signs Temp 98.4 F 07/08/17 07:30 Pulse 94 H 07/08/17 09:20 Resp 18 07/08/17 07:30 BP 143/84 07/08/17 09:20 Pulse Ox 98 07/08/17 07:30 - Labs Result Diagrams: 07/08/17 06:41 07/08/17 06:41 Attending/Attestation - Attestation I have personally seen and examined this patient.: Yes I have fully participated in the care of the patient.: Yes I have reviewed all pertinent clinical information: Yes Notes (Text): -I agree with the above H&P completed by the resident physician.
[2017-07-02 07:11] LABS: BASO # 0.02 K/mm3 (0.0-2.0); BASO % 0.5 % (0.0-3.0); EOS # 0.2 (0.0-0.7); EOS % 3.8 % (1.5-5.0); GRAN # 1.7 (1.4-6.5); GRAN % 40.9 % (50.0-68.0); HEMATOCRIT 35.5 % (36.0-48.0); LYMPH # 1.8 (1.2-3.4); LYMPH % 43.3 % (22.0-35.0); MEAN CELL VOLUME 90.1 fl (80.0-105.0); MEAN CORPUSCULAR HEMOGLOBIN 30.7 pg (25.0-35.0); MEAN CORPUSCULAR HGB CONC 34.1 g/dl (31.0-37.0); MEAN PLATELET VOLUME 9.5 fl (7.0-11.0); MONO # 0.5 (0.1-0.6); MONO % 11.5 % (1.0-6.0); WHITE BLOOD COUNT 4.2 10^3/ul (4.5-11.0)
[2017-07-02 07:21] LABS: ALB/GLOB RATIO 1.1 (1.1-1.8); ALKALINE PHOSPHATASE 91 U/L (38-126); ALT/SGPT 115 U/L (7-56); AST/SGOT 87 U/L (14-36); BILIRUBIN,TOTAL 0.7 mg/dL (0.2-1.3); BLOOD UREA NITROGEN 9 mg/dL (7-21); CALCIUM 9.2 mg/dL (8.4-10.5); CARBON DIOXIDE 31 mmol/L (21-33); CHLORIDE 102 mmol/L (98-107); GFR AFRICAN-AMERICAN > 60; GLUCOSE,RANDOM 253 mg/dL (70-110); MAGNESIUM 1.9 mg/dL (1.7-2.2); PHOSPHOROUS 3.6 mg/dL (2.5-4.5); POTASSIUM 4.5 mmol/L (3.6-5.0); SODIUM 141 mmol/L (132-148); TOTAL PROTEIN 7.2 g/dL (5.8-8.3)
--- NOTE | 2017-07-02 08:43 | CARD ---
APPROVED REPORT EKG Measurement Heart [id number] <Conclusion> Normal sinus rhythm Normal ECG
--- NOTE | 2017-07-02 08:50 | RAD ---
HISTORY: cardiac eval COMPARISON: No prior. FINDINGS: LUNGS: The lungs are well inflated and clear. PLEURA: No significant pleural effusion identified, no pneumothorax apparent. CARDIOVASCULAR: Normal. OSSEOUS STRUCTURES: No significant abnormalities. VISUALIZED UPPER ABDOMEN: Normal. OTHER FINDINGS: None. IMPRESSION: No active pulmonary disease.
--- NOTE | 2017-07-02 09:26 | CP.PCM.CON ---
<Stephany Abrams - Last Filed: 07/02/17 09:25> History of Present Illness - History of Present Illness History of Present Illness: Seen and examined at the bedside this morning, the chart was reviewed. Request for GI consult is for cholelithiasis. HPI: This is a 56-year-old female with a past medical history of diabetes mellitus type 2, hypertension, gastritis, colon polyps and known cholelithiasis , was in the ER earlier in the day yesterday for same complaints, she was sent home to have elective outpateint surgery but came to the emergency room with complaints of increasing pain and nausea. She c/o right lower back pain that radiates to the front of abdomen and RUQ pain for the past 3 days. The patient also did report 3 episodes of nonbilious and nonbloody vomitus. She also complained of chills but no recorded fever. The patient states that she was told that she had cholelithiasis back in [place] 3 years ago, was recommended to have gallbladder removed but patient's pain improved and never went for surgery. Denies diarrhea, her last bowel movement was about 2 days ago and it was formed, no melena or bright red blood per rectum. Occasional dyspepsia, takes Zantac. She reports a 16 pound weight loss, denies anorexia. Denies dysuria or hematuria. She has had endoscopy about 8 years ago and has history of ulcers, she did have a colonoscopy 7 years ago and was told she had a colon polyp, this was done in [place]. On admission she had gallbladder ultrasound positive for gallstones and reported mildly biliary ductal dilatation , measuring 0.75 cm. PMH: DM, hypertension, gastritis, peptic ulcer disease,colon polyps, cholelithiasis Surgical history: Appendectomy Allergies: Aspirin Family history: Mother: Stomach cancer diagnosed in her 70s, father: Anemia Social history: Denies tobacco use, EtOH or substance abuse Medications: Reviewed as primary MAR ROS: Systems reviewed with positive findings see HPI Past Patient History - Past Social History Smoking Status: Never Smoked - CARDIAC Hx Cardiac Disorders: Yes Hx Hypertension: Yes - PULMONARY Hx Respiratory Disorders: Yes Hx Asthma: Yes - NEUROLOGICAL Hx Neurological Disorder: No - HEENT Hx HEENT Problems: No Hx Blind: No - RENAL Hx Chronic Kidney Disease: No - ENDOCRINE/METABOLIC Hx Endocrine Disorders: Yes Hx Diabetes Mellitus Type 2: Yes - HEMATOLOGICAL/ONCOLOGICAL Hx Blood Disorders: No - INTEGUMENTARY Hx Dermatological Problems: No - MUSCULOSKELETAL/RHEUMATOLOGICAL Hx Musculoskeletal Disorders: No Hx Falls: No - GASTROINTESTINAL Hx Gastrointestinal Disorders: Yes - GENITOURINARY/GYNECOLOGICAL Hx Genitourinary Disorders: No - PSYCHIATRIC Hx Psychophysiologic Disorder: No - SURGICAL HISTORY Hx Appendectomy: Yes Meds Allergies/Adverse Reactions: Allergies Allergy/AdvReac Type Severity Reaction Status Date / Time aspirin Allergy SWELLING Verified 07/01/17 18:40 - Medications Medications: Current Medications Albuterol Sulfate (Albuterol 0.083% Inhal Yulissa (2.5 Mg/3 Ml) Ud) 2.5 mg IH [id number] PRN PRN Reason: Shortness of Breath Famotidine (Pepcid) 40 mg PO BID [facility] Dextrose/Sodium Chloride (Dextrose 5%/0.45% Ns 1000 Ml) 1,000 mls @ 100 mls/hr IV .Q10H [facility] Last Admin: 07/01/17 22:27 Dose: 100 mls/hr Ampicillin Sodium/Sulbactam (Sodium 3 gm/ Sodium Chloride) 100 mls @ 200 mls/ hr IVPB Q6 [facility] PRN Reason: Protocol Last Admin: 07/02/17 05:05 Dose: 200 mls/hr Ketorolac Tromethamine (Toradol) 30 mg IVP Q6 PRN PRN Reason: Pain, moderate (4-7) Losartan Potassium (Cozaar) 25 mg PO BID [facility] Morphine Sulfate (Morphine) 2 mg IVP Q4H PRN PRN Reason: Pain, moderate (4-7) Stop: 07/04/17 21:58 Last Admin: 07/02/17 08:50 Dose: 2 mg Ondansetron HCl (Zofran Inj) 4 mg IVP Q4H PRN PRN Reason: Nausea/Vomiting Pantoprazole Sodium (Protonix Inj) 40 mg IVP DAILY [facility] Physical Exam - Constitutional Appears: No Acute Distress - Head Exam Head Exam: NORMOCEPHALIC - Eye Exam Eye Exam: Normal appearance. absent: Scleral icterus - ENT Exam ENT Exam: Mucous Membranes Moist - Neck Exam Neck exam: Positive for: Normal Inspection - Respiratory Exam Respiratory Exam: Clear to Auscultation Bilateral, NORMAL BREATHING PATTERN. absent: Respiratory Distress - Cardiovascular Exam Cardiovascular Exam: +S1, +S2 - GI/Abdominal Exam GI & Abdominal Exam: Normal Bowel Sounds, Soft, Tenderness (right flank/RUQ). absent: Distended, Guarding, Rebound - Extremities Exam Extremities exam: Positive for: pedal pulses present. Negative for: calf tenderness, pedal edema - Neurological Exam Neurological exam: Alert, Oriented x3 - Skin Skin Exam: Dry, Warm Results - Vital Signs Recent Vital Signs: Last Vital Signs Temp 97.9 F 07/02/17 08:04 Pulse 73 07/02/17 08:04 Resp 18 07/02/17 08:04 BP 142/87 07/02/17 08:04 Pulse Ox 97 07/02/17 08:04 - Labs Result Diagrams: 07/02/17 06:52 07/02/17 06:52 Labs: Laboratory Results - last 24 hr 07/02/17 07/02/17 06:52 06:52 WBC 4.2 L RBC 3.94 Hgb 12.1 Hct 35.5 L MCV 90.1 MCH 30.7 MCHC 34.1 RDW 12.0 Plt Count 210 MPV 9.5 Gran % 40.9 L Lymph % (Auto) 43.3 H [place] % (Auto) 11.5 H Eos % (Auto) 3.8 Baso % (Auto) 0.5 Gran # 1.70 Lymph # 1.8 [place] # 0.5 Eos # 0.2 Baso # 0.02 Sodium 141 Potassium 4.5 Chloride 102 Carbon Dioxide 31 Anion Gap 13 BUN 9 Creatinine 0.8 Est GFR ( Amer) > 60 Est GFR (Non-Af Amer) > 60 Random Glucose 253 H Calcium 9.2 Phosphorus 3.6 Magnesium 1.9 Total Bilirubin 0.7 AST 87 H ALT 115 H Alkaline Phosphatase 91 Total Protein 7.2 Albumin 3.8 Globulin 3.4 Albumin/Globulin Ratio 1.1 Assessment & Plan - Assessment and Plan (Free Text) Assessment: Assessment: Abdominal pain, may lilkly be secondary to biliary colic H/O Cholelithiasis Dilated CBD, 0.75 cm, r/o CBD stone Lower Back Pian DM HTN H/O Colon polyps PLAN: on clears continue PPI zorfan prn nausea pain mgt FU hepatitis panel agree with MRCP, evaluate ducts, r/o cbd stone trend LFT surgical FU Thank you for this consult and for allowing us to participate in your patient care, further recommendation based upon clinical course. Seen and discussed w/ Dr. Weaver. <Joan Weaver V - Last Filed: 07/03/17 00:29> Meds - Medications Medications: Current Medications Albuterol Sulfate (Albuterol 0.083% Inhal Yulissa (2.5 Mg/3 Ml) Ud) 2.5 mg IH [id number] PRN PRN Reason: Shortness of Breath Dextrose/Sodium Chloride (Dextrose 5%/0.45% Ns 1000 Ml) 1,000 mls @ 100 mls/hr IV .Q10H [facility] Last Admin: 07/02/17 18:54 Dose: 100 mls/hr Ampicillin Sodium/Sulbactam (Sodium 3 gm/ Sodium Chloride) 100 mls @ 200 mls/ hr IVPB Q6 [facility] PRN Reason: Protocol Last Admin: 07/02/17 23:03 Dose: 200 mls/hr Ketorolac Tromethamine (Toradol) 30 mg IVP Q6 PRN PRN Reason: Pain, moderate (4-7) Losartan Potassium (Cozaar) 25 mg PO BID [facility] Last Admin: 07/02/17 18:53 Dose: 25 mg Morphine Sulfate (Morphine) 2 mg IVP Q4H PRN PRN Reason: Pain, moderate (4-7) Stop: 07/04/17 21:58 Last Admin: 07/02/17 23:04 Dose: 2 mg Ondansetron HCl (Zofran Inj) 4 mg IVP Q4H PRN PRN Reason: Nausea/Vomiting Pantoprazole Sodium (Protonix Inj) 40 mg IVP DAILY [facility] Last Admin: 07/02/17 11:00 Dose: 40 mg Results - Vital Signs Recent Vital Signs: Last Vital Signs Temp 98.4 F 07/02/17 16:00 Pulse 69 07/02/17 18:53 Resp 20 07/02/17 16:00 BP 110/73 07/02/17 18:53 Pulse Ox 98 07/02/17 16:00 - Labs Result Diagrams: 07/02/17 06:52 07/02/17 06:52 Labs: Laboratory Results - last 24 hr 07/02/17 07/02/17 07/02/17 06:52 06:52 08:13 WBC 4.2 L RBC 3.94 Hgb 12.1 Hct 35.5 L MCV 90.1 MCH 30.7 MCHC 34.1 RDW 12.0 Plt Count 210 MPV 9.5 Gran % 40.9 L Lymph % (Auto) 43.3 H [place] % (Auto) 11.5 H Eos % (Auto) 3.8 Baso % (Auto) 0.5 Gran # 1.70 Lymph # 1.8 [place] # 0.5 Eos # 0.2 Baso # 0.02 Sodium 141 Potassium 4.5 Chloride 102 Carbon Dioxide 31 Anion Gap 13 BUN 9 Creatinine 0.8 Est GFR ( Amer) > 60 Est GFR (Non-Af Amer) > 60 Random Glucose 253 H Calcium 9.2 Phosphorus 3.6 Magnesium 1.9 Total Bilirubin 0.7 AST 87 H ALT 115 H Alkaline Phosphatase 91 Total Protein 7.2 Albumin 3.8 Globulin 3.4 Albumin/Globulin Ratio 1.1 Hepatitis A IgM Ab Negative Hep Bs Antigen Negative Hep B Core IgM Ab Negative Hepatitis C Antibody Negative Attending/Attestation - Attestation I have personally seen and examined this patient.: Yes I have fully participated in the care of the patient.: Yes I have reviewed all pertinent clinical information: Yes Notes (Text): This is an addendum to GI progress report dictated by Stephany Abrams APN.The patient was seen and examined earlier. Medical records, lab studies, imagings were reviewed. Last 24 hours events reviewed. Agreed with the above treatment plan as outlined in Stephany Abrams APN's notes the with the addition of the following Recurrent episodes of right upper quadrant pain radiating to the back on examination patient has mild tenderness in the epigastric and right upper quadrant no rebound or guarding Labs reviewed the elevated transaminases may be due to multiple other differential diagnosis viz fatty liver disease follow-up LFT Surgical follow-up follow up with MRCP 07/03/17 00:20
--- NOTE | 2017-07-02 09:28 | CP.PCM.PN ---
<Omar Morrow - Last Filed: 07/02/17 09:22> Subjective - Date & Time of Evaluation Date of Evaluation: 07/02/17 Time of Evaluation: 09:22 - Subjective Subjective: PGY1 General Surgery Note for Dr. Sharma Patient seen and examined at bedside this morning. No acute events overnight. Patient states that she is still experiencing RUQ pain and low back pain. The patient states she is feeling much better and that her pain is better controlled since being admitted. Patient was NPO overnight. Denies fevers, chills, nausea, vomiting, diarrhea, constipation, shortness of breath, chest pain, numbness or tingling. Objective - Vital Signs/Intake and Output Vital Signs (last 24 hours): Temp Pulse Resp BP Pulse Ox 97.9 F 73 18 142/87 97 07/02/17 08:04 07/02/17 08:04 07/02/17 08:04 07/02/17 08:04 07/02/17 08:04 - Medications Medications: Current Medications Albuterol Sulfate (Albuterol 0.083% Inhal Yulissa (2.5 Mg/3 Ml) Ud) 2.5 mg IH [id number] PRN PRN Reason: Shortness of Breath Famotidine (Pepcid) 40 mg PO BID [facility] Dextrose/Sodium Chloride (Dextrose 5%/0.45% Ns 1000 Ml) 1,000 mls @ 100 mls/hr IV .Q10H [facility] Last Admin: 07/01/17 22:27 Dose: 100 mls/hr Ampicillin Sodium/Sulbactam (Sodium 3 gm/ Sodium Chloride) 100 mls @ 200 mls/ hr IVPB Q6 [facility] PRN Reason: Protocol Last Admin: 07/02/17 05:05 Dose: 200 mls/hr Ketorolac Tromethamine (Toradol) 30 mg IVP Q6 PRN PRN Reason: Pain, moderate (4-7) Losartan Potassium (Cozaar) 25 mg PO BID [facility] Morphine Sulfate (Morphine) 2 mg IVP Q4H PRN PRN Reason: Pain, moderate (4-7) Stop: 07/04/17 21:58 Last Admin: 07/02/17 08:50 Dose: 2 mg Ondansetron HCl (Zofran Inj) 4 mg IVP Q4H PRN PRN Reason: Nausea/Vomiting Pantoprazole Sodium (Protonix Inj) 40 mg IVP DAILY [facility] - Labs Labs: 07/02/17 06:52 07/02/17 06:52 PT 10.8 SECONDS (9.4-12.5) 07/01/17 19:44 INR 0.99 (0.93-1.08) 07/01/17 19:44 APTT 28.6 Seconds (25.1-36.5) 07/01/17 19:44 - Constitutional Appears: Non-toxic, No Acute Distress - Head Exam Head Exam: ATRAUMATIC, NORMOCEPHALIC - Eye Exam Eye Exam: EOMI, Normal appearance, PERRL - ENT Exam ENT Exam: Mucous Membranes Moist, Normal Exam - Respiratory Exam Respiratory Exam: NORMAL BREATHING PATTERN. absent: Accessory Muscle Use, Respiratory Distress - GI/Abdominal Exam GI & Abdominal Exam: Guarding, Soft, Tenderness (RUQ/epigastric TTP), Normal Bowel Sounds. absent: Distended, Firm, Rigid - Extremities Exam Extremities Exam: Normal Inspection. absent: Calf Tenderness, Pedal Edema - Neurological Exam Neurological Exam: Alert, Awake, Oriented x3 - Psychiatric Exam Psychiatric exam: Normal Affect, Normal Mood - Skin Skin Exam: Dry, Warm Assessment and Plan - Assessment and Plan (Free Text) Assessment: 56 year old female with Cholelithiasis Plan: - elevated transaminases AST 87, ALT 115 - slightly improved from yesterday; normal Alk Phos - Pain control - Nausea control - started on clear liquid diet - IVF - Medical management - f/u MRCP - f/u Lumbar MRI Will discuss with Dr. Edith Morrow PGY1 <Umesh Sharma - Last Filed: 07/04/17 18:06> Objective - Vital Signs/Intake and Output Vital Signs (last 24 hours): Temp Pulse Resp BP Pulse Ox 98 F 81 20 155/84 H 98 07/04/17 16:00 07/04/17 16:00 07/04/17 16:00 07/04/17 16:00 07/04/17 16:00 Intake and Output: 07/04/17 07/04/17 06:59 18:59 Intake Total 2820 480 Balance 2820 480 - Medications Medications: Current Medications Albuterol Sulfate (Albuterol 0.083% Inhal Yulissa (2.5 Mg/3 Ml) Ud) 2.5 mg IH [id number] PRN PRN Reason: Shortness of Breath Dextrose/Sodium Chloride (Dextrose 5%/0.45% Ns 1000 Ml) 1,000 mls @ 100 mls/hr IV .Q10H [facility] Last Admin: 07/04/17 12:18 Dose: 100 mls/hr Ampicillin Sodium/Sulbactam (Sodium 3 gm/ Sodium Chloride) 100 mls @ 200 mls/ hr IVPB Q6 [facility] PRN Reason: Protocol Last Admin: 07/04/17 12:19 Dose: 200 mls/hr Ketorolac Tromethamine (Toradol) 30 mg IVP Q6 PRN PRN Reason: Pain, moderate (4-7) Last Admin: 07/04/17 16:36 Dose: 30 mg Losartan Potassium (Cozaar) 25 mg PO BID [facility] Last Admin: 07/04/17 10:09 Dose: 25 mg Morphine Sulfate (Morphine) 2 mg IVP Q4H PRN PRN Reason: Pain, moderate (4-7) Stop: 07/04/17 21:58 Last Admin: 07/03/17 15:08 Dose: 2 mg Ondansetron HCl (Zofran Inj) 4 mg IVP Q4H PRN PRN Reason: Nausea/Vomiting Pantoprazole Sodium (Protonix Inj) 40 mg IVP DAILY [facility] Last Admin: 07/04/17 10:09 Dose: 40 mg Polyethylene Glycol (Miralax) 17 gm PO DAILY [facility] Last Admin: 07/04/17 10:09 Dose: 17 gm - Labs Labs: 07/04/17 06:30 07/04/17 06:30 PT 10.8 SECONDS (9.4-12.5) 07/01/17 19:44 INR 0.99 (0.93-1.08) 07/01/17 19:44 APTT 28.6 Seconds (25.1-36.5) 07/01/17 19:44 Attending/Attestation - Attestation I have personally seen and examined this patient.: Yes I have fully participated in the care of the patient.: Yes I have reviewed all pertinent clinical information, including history, physical exam and plan: Yes Notes (Text): Pt was seen and examined at bedside Agree with above note and assessment MRCP today GI consult appreciated Repeat Labs Plan kasey pt in detail Risk and benefit explaine in detail.
[2017-07-02] MEDS ORDERED: IRBESARTAN PO SCH (10:00)
[2017-07-02] MEDS ORDERED: Non Formulary Medication (Ranitidine Hcl [Zantac] 300 MG) PO SCH (10:00)
[2017-07-02] MEDS: Morphine 4 mg/ml ISec IVP PRN ×3 (13:03→23:04)
[2017-07-02] MEDS ORDERED: Gadodiamide 287 MG/ML VIAL (15ML) IV ONE (17:54)
[2017-07-02] MEDS: Dextrose 5%/0.45% NS 1,000 ML IV SCH (18:54)
--- NOTE | 2017-07-02 20:17 | MRI ---
EXAM: MR Lumbar Spine Without Intravenous Contrast CLINICAL HISTORY: 56 years old, female; Pain; Low back pain; Patient HX: Lower back pain TECHNIQUE: Magnetic resonance images of the lumbar spine without intravenous contrast in multiple planes. COMPARISON: No relevant prior studies available. FINDINGS: Vertebrae: Type II Modic changes along inferior endplate L5, superior end plate S1. Normal alignment. No acute fracture. Interspaces: Disc desiccation at L5-S1 level. Spinal cord: Conus medullaris at T12 level. Soft tissues: Unremarkable. Kidneys and ureters: Horseshoe kidney. DISCS/SPINAL CANAL/NEURAL FORAMINA: L1-L2: Unremarkable. No significant disc disease. No stenosis. L2-L3: Unremarkable. No significant disc disease. No stenosis. L3-L4: Unremarkable. No significant disc disease. No stenosis. L4-L5: Unremarkable. No significant disc disease. No stenosis. L5-S1: Central/RIGHT paracentral/RIGHT foraminal broad-based disc protrusion at L5-S1 level High T2 signal within posterior annulus at L5-S1 level compatible with annular tear. Mild neural foraminal narrowing at RIGHT L5-S1 level. IMPRESSION: 1. Degenerative disc disease at L5-S1 level. 2. Incidental/non-acute findings are described above.
--- NOTE | 2017-07-02 20:43 | MRI ---
EXAM: MR Abdomen Without and With Intravenous Contrast, MRCP Protocol EXAM DATE/TIME: 07/02/2017 8:17 AM CLINICAL HISTORY: 56 years old, female; Pain; Abdominal pain; Acute; Patient HX: ? Stone; Additional info: Symptomatic cholelithiasis TECHNIQUE: Multiplanar magnetic resonance images of the abdomen without and with intravenous contrast using MRCP protocol. CONTRAST: 15 mL of OMNISCAN administered intravenously. COMPARISON: Recent abdomen ultrasound dated 2017-07-01 FINDINGS: BILE DUCTS: Common bile duct is slightly dilated, measuring up to 6.9 mm in diameter. No common bile duct stones are visualized. No evidence of significant intrahepatic biliary ductal dilatation. GALLBLADDER: Cholelithiasis. Multiple large gallstones are seen. No evidence of pericholecystic fluid. No significant gallbladder wall thickening noted. LIVER: Fatty infiltration of the liver. PANCREAS: Pancreatic duct is seen diffusely, throughout the pancreas. It is normal to top normal in caliber, measuring up to [address] evidence of acute pancreatitis. No evidence of significant peripancreatic fluid. No pancreatic mass is visualized. SPLEEN: No acute abnormality of the spleen identified. KIDNEYS AND URETERS: Horseshoe kidney incidentally noted. No hydronephrosis. STOMACH AND BOWEL: No evidence of bowel obstruction. IMPRESSION: - Extensive gallstones. No evidence of acute cholecystitis. - Minimal dilatation of the common bile duct, 6.9 mm, with no common bile duct stones visualized. - Pancreatic duct is top normal in caliber, of uncertain clinical significance. No CT evidence of acute pancreatitis. - Horseshoe kidney incidentally noted. - See above for remaining findings.
[2017-07-03] MEDS: Dextrose 5%/0.45% NS 1,000 ML IV SCH ×2 (05:04→23:05)
[2017-07-03 07:45] LABS: BASO # 0.02 K/mm3 (0.0-2.0); BASO % 0.5 % (0.0-3.0); EOS # 0.4 (0.0-0.7); EOS % 7.9 % (1.5-5.0); GRAN # 1.59 (1.4-6.5); GRAN % 35.9 % (50.0-68.0); HEMATOCRIT 35.3 % (36.0-48.0); LYMPH % 44.8 % (22.0-35.0); MEAN CELL VOLUME 90.7 fl (80.0-105.0); MEAN CORPUSCULAR HEMOGLOBIN 29.8 pg (25.0-35.0); MEAN CORPUSCULAR HGB CONC 32.9 g/dl (31.0-37.0); MEAN PLATELET VOLUME 9.5 fl (7.0-11.0); MONO # 0.5 (0.1-0.6); MONO % 10.9 % (1.0-6.0); WHITE BLOOD COUNT 4.4 10^3/ul (4.5-11.0)
[2017-07-03 07:47] LABS: ALB/GLOB RATIO 1.2 (1.1-1.8); ALKALINE PHOSPHATASE 84 U/L (38-126); ALT/SGPT 119 U/L (7-56); AST/SGOT 98 U/L (14-36); BILIRUBIN,TOTAL 0.8 mg/dL (0.2-1.3); BLOOD UREA NITROGEN 6 mg/dL (7-21); CALCIUM 9.4 mg/dL (8.4-10.5); CARBON DIOXIDE 33 mmol/L (21-33); CHLORIDE 100 mmol/L (98-107); GFR AFRICAN-AMERICAN > 60; GLUCOSE,RANDOM 223 mg/dL (70-110); MAGNESIUM 1.9 mg/dL (1.7-2.2); PHOSPHOROUS 4.2 mg/dL (2.5-4.5); POTASSIUM 4.1 mmol/L (3.6-5.0); SODIUM 142 mmol/L (132-148); TOTAL PROTEIN 7.1 g/dL (5.8-8.3)
--- NOTE | 2017-07-03 12:29 | CP.PCM.PN ---
<Gregory Fierro - Last Filed: 07/05/17 15:19> Subjective - Date & Time of Evaluation Date of Evaluation: 07/03/17 Time of Evaluation: 07:15 - Subjective Subjective: Patient seen and examined at bedside. Complaining of nausea after eating. Denies fever/chills, vomiting. Patient reports lower back pain. She also reports right upper quadrant and epigastric pain. No acute events over night. Objective - Vital Signs/Intake and Output Vital Signs (last 24 hours): Temp Pulse Resp BP Pulse Ox 97.9 F 71 20 106/67 97 07/03/17 07:30 07/03/17 09:47 07/03/17 07:30 07/03/17 09:47 07/03/17 07:30 Intake and Output: 07/03/17 07/03/17 06:59 18:59 Intake Total 2880 Balance 2880 - Medications Medications: Current Medications Albuterol Sulfate (Albuterol 0.083% Inhal Yulissa (2.5 Mg/3 Ml) Ud) 2.5 mg IH [id number] PRN PRN Reason: Shortness of Breath Dextrose/Sodium Chloride (Dextrose 5%/0.45% Ns 1000 Ml) 1,000 mls @ 100 mls/hr IV .Q10H [facility] Last Admin: 07/03/17 05:04 Dose: 100 mls/hr Ampicillin Sodium/Sulbactam (Sodium 3 gm/ Sodium Chloride) 100 mls @ 200 mls/ hr IVPB Q6 [facility] PRN Reason: Protocol Last Admin: 07/03/17 05:04 Dose: 200 mls/hr Ketorolac Tromethamine (Toradol) 30 mg IVP Q6 PRN PRN Reason: Pain, moderate (4-7) Last Admin: 07/03/17 06:57 Dose: 30 mg Losartan Potassium (Cozaar) 25 mg PO BID [facility] Last Admin: 07/03/17 09:47 Dose: 25 mg Morphine Sulfate (Morphine) 2 mg IVP Q4H PRN PRN Reason: Pain, moderate (4-7) Stop: 07/04/17 21:58 Last Admin: 07/02/17 23:04 Dose: 2 mg Ondansetron HCl (Zofran Inj) 4 mg IVP Q4H PRN PRN Reason: Nausea/Vomiting Pantoprazole Sodium (Protonix Inj) 40 mg IVP DAILY [facility] Last Admin: 07/03/17 09:47 Dose: 40 mg - Labs Labs: 07/03/17 06:30 07/03/17 06:30 PT 10.8 SECONDS (9.4-12.5) 07/01/17 19:44 INR 0.99 (0.93-1.08) 07/01/17 19:44 APTT 28.6 Seconds (25.1-36.5) 07/01/17 19:44 - Constitutional Appears: No Acute Distress - Head Exam Head Exam: NORMOCEPHALIC - Eye Exam Pupil Exam: NORMAL ACCOMODATION - ENT Exam ENT Exam: Mucous Membranes Moist - Respiratory Exam Respiratory Exam: NORMAL BREATHING PATTERN - Cardiovascular Exam Cardiovascular Exam: +S1, +S2 - GI/Abdominal Exam GI & Abdominal Exam: Soft, Tenderness Additional comments: RUQ & epigastric tenderness - Extremities Exam Extremities Exam: Normal Inspection - Neurological Exam Neurological Exam: Alert, Awake, Oriented x3 - Psychiatric Exam Psychiatric exam: Normal Mood - Skin Skin Exam: Dry, Intact, Warm Assessment and Plan - Assessment and Plan (Free Text) Assessment: 56F w/ cholelithiasis and presence of dilated pancreatic duct- upper limit of normal -Recommend EUS -Dr. Sharma discussed findings with Dr. Sibley, patient scheduled for EUS on Thursday 07/05 -Continue with analgesics -DVT/GI ppx -Further recs per Dr. Edith Fierro PGY2 <Umesh Sharma - Last Filed: 07/11/17 15:15> Objective - Vital Signs/Intake and Output Vital Signs (last 24 hours): Temp Pulse Resp BP Pulse Ox 98.4 F 94 H 18 143/84 98 07/08/17 07:30 07/08/17 09:20 07/08/17 07:30 07/08/17 09:20 07/08/17 07:30 - Labs Labs: 07/08/17 06:41 07/08/17 06:41 PT 12.8 SECONDS (9.4-12.5) H 07/06/17 07:43 INR 1.16 (0.93-1.08) H 07/06/17 07:43 APTT 28.6 Seconds (25.1-36.5) 07/01/17 19:44 Attending/Attestation - Attestation I have personally seen and examined this patient.: Yes I have fully participated in the care of the patient.: Yes I have reviewed all pertinent clinical information, including history, physical exam and plan: Yes Notes (Text): Pt was seen and examined at bedside Agree with above note and assessment Pt with Cholelithiasis, Chronic Cholecystitis and Dilated CBD GI on board for EUS Pt would need Lap Cholecystectomy after EUS is done Plan d.w pt in detail C/w current mx
--- NOTE | 2017-07-03 13:38 | CP.PCM.CON ---
<Myla Castillo - Last Filed: 07/03/17 14:23> History of Present Illness - History of Present Illness History of Present Illness: Gastroenterology Fellow/PGY5 Consult Note 56 year old female with history of Hypertension, Diabetes, PUD, and cholelithiasis presenting with abdominal pain. Patient describes lower back pain radiating to right doron-abdomen since Wednesday. Associated episode of bilious vomiting without hematemesis. Denies diarrhea, constipation, melena, or hemtochezia. Notes 16 pound unintentional weight loss. Admits to similar abdominal pain three years ago in [place] with noncompliance to recommendation for cholecytectomy. Prior EGD/colonoscopy 8 years ago with PUD, Gastritis, and colon polyp. Family- Mother- stomach cancer, father- leukemia Social- denies tobacco, alcohol, illicit drug use Surgery-appendectomy Review of Systems - Review of Systems Review of Systems: 12-point review of systems negative except for as above Past Patient History - Past Social History Smoking Status: Never Smoked - CARDIAC Hx Cardiac Disorders: Yes Hx Hypertension: Yes - PULMONARY Hx Respiratory Disorders: Yes Hx Asthma: Yes - NEUROLOGICAL Hx Neurological Disorder: No - HEENT Hx HEENT Problems: No Hx Blind: No - RENAL Hx Chronic Kidney Disease: No - ENDOCRINE/METABOLIC Hx Endocrine Disorders: Yes Hx Diabetes Mellitus Type 2: Yes - HEMATOLOGICAL/ONCOLOGICAL Hx Blood Disorders: No - INTEGUMENTARY Hx Dermatological Problems: No - MUSCULOSKELETAL/RHEUMATOLOGICAL Hx Musculoskeletal Disorders: No Hx Falls: No - GASTROINTESTINAL Hx Gastrointestinal Disorders: Yes - GENITOURINARY/GYNECOLOGICAL Hx Genitourinary Disorders: No - PSYCHIATRIC Hx Psychophysiologic Disorder: No - SURGICAL HISTORY Hx Appendectomy: Yes Meds Allergies/Adverse Reactions: Allergies Allergy/AdvReac Type Severity Reaction Status Date / Time aspirin Allergy SWELLING Verified 07/01/17 18:40 - Medications Medications: Current Medications Albuterol Sulfate (Albuterol 0.083% Inhal Yulissa (2.5 Mg/3 Ml) Ud) 2.5 mg IH [id number] PRN PRN Reason: Shortness of Breath Dextrose/Sodium Chloride (Dextrose 5%/0.45% Ns 1000 Ml) 1,000 mls @ 100 mls/hr IV .Q10H [facility] Last Admin: 07/03/17 05:04 Dose: 100 mls/hr Ampicillin Sodium/Sulbactam (Sodium 3 gm/ Sodium Chloride) 100 mls @ 200 mls/ hr IVPB Q6 [facility] PRN Reason: Protocol Last Admin: 07/03/17 05:04 Dose: 200 mls/hr Ketorolac Tromethamine (Toradol) 30 mg IVP Q6 PRN PRN Reason: Pain, moderate (4-7) Last Admin: 07/03/17 06:57 Dose: 30 mg Losartan Potassium (Cozaar) 25 mg PO BID [facility] Last Admin: 07/03/17 09:47 Dose: 25 mg Morphine Sulfate (Morphine) 2 mg IVP Q4H PRN PRN Reason: Pain, moderate (4-7) Stop: 07/04/17 21:58 Last Admin: 07/02/17 23:04 Dose: 2 mg Ondansetron HCl (Zofran Inj) 4 mg IVP Q4H PRN PRN Reason: Nausea/Vomiting Pantoprazole Sodium (Protonix Inj) 40 mg IVP DAILY [facility] Last Admin: 07/03/17 09:47 Dose: 40 mg Physical Exam - Constitutional Appears: Non-toxic, No Acute Distress - Head Exam Head Exam: ATRAUMATIC, NORMOCEPHALIC - Eye Exam Eye Exam: EOMI, PERRL Pupil Exam: PERRL. absent: Miosis, Mydriatic - ENT Exam ENT Exam: Mucous Membranes Moist, Normal Oropharynx - Neck Exam Neck exam: Positive for: Full Rom, Normal Inspection - Respiratory Exam Respiratory Exam: Clear to Auscultation Bilateral. absent: Rales, Rhonchi, Wheezes - Cardiovascular Exam Cardiovascular Exam: RRR, +S1, +S2. absent: Gallop, Rubs - GI/Abdominal Exam GI & Abdominal Exam: Normal Bowel Sounds, Soft, Tenderness. absent: Distended, Firm, Guarding, Organomegaly, Rebound, Rigid Additional comments: epigastric and right doron-abdomen tenderness to palpation - Extremities Exam Extremities exam: Positive for: normal inspection. Negative for: pedal edema - Neurological Exam Neurological exam: Alert - Psychiatric Exam Psychiatric exam: Normal Affect, Normal Mood - Skin Skin Exam: Dry, Intact, Normal Color, Warm Results - Vital Signs Recent Vital Signs: Last Vital Signs Temp 97.9 F 07/03/17 07:30 Pulse 71 07/03/17 09:47 Resp 20 07/03/17 07:30 BP 106/67 07/03/17 09:47 Pulse Ox 97 07/03/17 07:30 - Labs Result Diagrams: 07/03/17 06:30 07/03/17 06:30 Labs: Laboratory Results - last 24 hr 07/03/17 07/03/17 06:30 06:30 WBC 4.4 L RBC 3.89 Hgb 11.6 L Hct 35.3 L MCV 90.7 MCH 29.8 MCHC 32.9 RDW 12.0 Plt Count 211 MPV 9.5 Gran % 35.9 L Lymph % (Auto) 44.8 H [place] % (Auto) 10.9 H Eos % (Auto) 7.9 H Baso % (Auto) 0.5 Gran # 1.59 Lymph # 2.0 [place] # 0.5 Eos # 0.4 Baso # 0.02 Sodium 142 Potassium 4.1 Chloride 100 Carbon Dioxide 33 Anion Gap 13 BUN 6 L Creatinine 0.8 Est GFR ( Amer) > 60 Est GFR (Non-Af Amer) > 60 Random Glucose 223 H Calcium 9.4 Phosphorus 4.2 Magnesium 1.9 Total Bilirubin 0.8 AST 98 H ALT 119 H Alkaline Phosphatase 84 Total Protein 7.1 Albumin 3.8 Globulin 3.3 Albumin/Globulin Ratio 1.2 Assessment & Plan - Assessment and Plan (Free Text) Assessment: 56 year old female with history of Hypertension, Diabetes, PUD, and cholelithiasis presenting with abdominal pain. Active treatment of symptomatic cholelitihiasis with elevated transaminases. Prior EGD/colonoscopy 8 years ago with PUD, Gastritis, and colon polyp. Plan: >EUS to evaluate for choledocholithiasis Wednesday >ERCP to follow if EUS positive >low fat diet, NPO Wednesday midnight >trend LFTs >monitor clinical status >supportive care: pain control, anti-emetics >will follow clinical course <Joshua Sibley MD - Last Filed: 07/03/17 14:56> Meds - Medications Medications: Current Medications Albuterol Sulfate (Albuterol 0.083% Inhal Yulissa (2.5 Mg/3 Ml) Ud) 2.5 mg IH [id number] PRN PRN Reason: Shortness of Breath Dextrose/Sodium Chloride (Dextrose 5%/0.45% Ns 1000 Ml) 1,000 mls @ 100 mls/hr IV .Q10H [facility] Last Admin: 07/03/17 05:04 Dose: 100 mls/hr Ampicillin Sodium/Sulbactam (Sodium 3 gm/ Sodium Chloride) 100 mls @ 200 mls/ hr IVPB Q6 [facility] PRN Reason: Protocol Last Admin: 07/03/17 05:04 Dose: 200 mls/hr Ketorolac Tromethamine (Toradol) 30 mg IVP Q6 PRN PRN Reason: Pain, moderate (4-7) Last Admin: 07/03/17 06:57 Dose: 30 mg Losartan Potassium (Cozaar) 25 mg PO BID [facility] Last Admin: 07/03/17 09:47 Dose: 25 mg Morphine Sulfate (Morphine) 2 mg IVP Q4H PRN PRN Reason: Pain, moderate (4-7) Stop: 07/04/17 21:58 Last Admin: 07/02/17 23:04 Dose: 2 mg Ondansetron HCl (Zofran Inj) 4 mg IVP Q4H PRN PRN Reason: Nausea/Vomiting Pantoprazole Sodium (Protonix Inj) 40 mg IVP DAILY [facility] Last Admin: 07/03/17 09:47 Dose: 40 mg Results - Vital Signs Recent Vital Signs: Last Vital Signs Temp 97.9 F 07/03/17 07:30 Pulse 71 07/03/17 09:47 Resp 20 07/03/17 07:30 BP 106/67 07/03/17 09:47 Pulse Ox 97 07/03/17 07:30 - Labs Result Diagrams: 07/03/17 06:30 07/03/17 06:30 Labs: Laboratory Results - last 24 hr 07/03/17 07/03/17 06:30 06:30 WBC 4.4 L RBC 3.89 Hgb 11.6 L Hct 35.3 L MCV 90.7 MCH 29.8 MCHC 32.9 RDW 12.0 Plt Count 211 MPV 9.5 Gran % 35.9 L Lymph % (Auto) 44.8 H [place] % (Auto) 10.9 H Eos % (Auto) 7.9 H Baso % (Auto) 0.5 Gran # 1.59 Lymph # 2.0 [place] # 0.5 Eos # 0.4 Baso # 0.02 Sodium 142 Potassium 4.1 Chloride 100 Carbon Dioxide 33 Anion Gap 13 BUN 6 L Creatinine 0.8 Est GFR ( Amer) > 60 Est GFR (Non-Af Amer) > 60 Random Glucose 223 H Calcium 9.4 Phosphorus 4.2 Magnesium 1.9 Total Bilirubin 0.8 AST 98 H ALT 119 H Alkaline Phosphatase 84 Total Protein 7.1 Albumin 3.8 Globulin 3.3 Albumin/Globulin Ratio 1.2 Attending/Attestation - Attestation I have personally seen and examined this patient.: Yes I have fully participated in the care of the patient.: Yes I have reviewed all pertinent clinical information: Yes Notes (Text): 07/03/17 14:44 Patient seen and examined with GI fellow on rounds this am. This is a 56 year old female with history of Hypertension, Diabetes, PUD, and cholelithiasis presenting with abdominal pain in setting of cholelithiasis and MRCP showing dilated CBD. Total bilirubin normal with elevated transminases. Had similar symptoms 3 yaers ago in [place] and was adviced to get GB removed but she did not get CCY then. Denies fever, nausea, vomiting. Will schedule for EUS/ ERCP on Wednesday to be followed with CCY. Discussed with Dr Sharma. Clear liquid diet as tolerated. NPO past midnight on Wednesday.
[2017-07-03] MEDS: Morphine 4 mg/ml ISec IVP PRN (15:08)
--- NOTE | 2017-07-03 15:16 | CP.PCM.PN ---
<TERRANCE VALDEZ - Last Filed: 07/03/17 14:54> Subjective - Date & Time of Evaluation Date of Evaluation: 07/03/17 Time of Evaluation: 14:54 - Subjective Subjective: Medicine Progress Note: Pt seen and examined at bedside. Pt denied any acute overnight events. Pt states that RUQ and nausea is still present, especially after she eats. Pt denied CP, SOB, vomiting, diarrhea, constipation, fever, chills, WINTER, or dizziness. Objective - Vital Signs/Intake and Output Vital Signs (last 24 hours): Temp Pulse Resp BP Pulse Ox 97.9 F 71 20 106/67 97 07/03/17 07:30 07/03/17 09:47 07/03/17 07:30 07/03/17 09:47 07/03/17 07:30 Intake and Output: 07/03/17 07/03/17 06:59 18:59 Intake Total 2880 0 Balance 2880 0 - Medications Medications: Current Medications Albuterol Sulfate (Albuterol 0.083% Inhal Yulissa (2.5 Mg/3 Ml) Ud) 2.5 mg IH [id number] PRN PRN Reason: Shortness of Breath Dextrose/Sodium Chloride (Dextrose 5%/0.45% Ns 1000 Ml) 1,000 mls @ 100 mls/hr IV .Q10H [facility] Last Admin: 07/03/17 05:04 Dose: 100 mls/hr Ampicillin Sodium/Sulbactam (Sodium 3 gm/ Sodium Chloride) 100 mls @ 200 mls/ hr IVPB Q6 [facility] PRN Reason: Protocol Last Admin: 07/03/17 05:04 Dose: 200 mls/hr Ketorolac Tromethamine (Toradol) 30 mg IVP Q6 PRN PRN Reason: Pain, moderate (4-7) Last Admin: 07/03/17 06:57 Dose: 30 mg Losartan Potassium (Cozaar) 25 mg PO BID [facility] Last Admin: 07/03/17 09:47 Dose: 25 mg Morphine Sulfate (Morphine) 2 mg IVP Q4H PRN PRN Reason: Pain, moderate (4-7) Stop: 07/04/17 21:58 Last Admin: 07/02/17 23:04 Dose: 2 mg Ondansetron HCl (Zofran Inj) 4 mg IVP Q4H PRN PRN Reason: Nausea/Vomiting Pantoprazole Sodium (Protonix Inj) 40 mg IVP DAILY [facility] Last Admin: 07/03/17 09:47 Dose: 40 mg - Labs Labs: 07/03/17 06:30 07/03/17 06:30 PT 10.8 SECONDS (9.4-12.5) 07/01/17 19:44 INR 0.99 (0.93-1.08) 07/01/17 19:44 APTT 28.6 Seconds (25.1-36.5) 07/01/17 19:44 - Constitutional Appears: No Acute Distress - Head Exam Head Exam: ATRAUMATIC, NORMOCEPHALIC - Eye Exam Eye Exam: EOMI, PERRL - ENT Exam ENT Exam: Mucous Membranes Moist - Neck Exam Neck Exam: Full ROM. absent: Lymphadenopathy, Tenderness, Thyromegaly - Respiratory Exam Respiratory Exam: Clear to Ausculation Bilateral. absent: Accessory Muscle Use , Rales, Rhonchi, Wheezes, Respiratory Distress - Cardiovascular Exam Cardiovascular Exam: RRR, +S1, +S2. absent: Diastolic murmur, Gallop, Rubs, Murmur - GI/Abdominal Exam GI & Abdominal Exam: Soft, Tenderness (RUQ). absent: Distended, Guarding, Rigid , Rebound - Extremities Exam Extremities Exam: Normal Inspection - Back Exam Back Exam: NORMAL INSPECTION - Neurological Exam Neurological Exam: Alert, Awake, Oriented x3 - Psychiatric Exam Psychiatric exam: Normal Affect, Normal Mood - Skin Skin Exam: Dry, Intact, Normal Color, Warm Assessment and Plan - Assessment and Plan (Free Text) Assessment: 56 year old female with a past medical history of hypertension, type II diabetes and gastritis who is being admitted for intractable ruq pain and biliary colic. Plan: 1. Cholelithiasis - Abdominal u/s done in the emergency department showed chelelithiasis and mild biliary ductal dilatation and to consider non-emergent MRCP. - MRCP showed extensive gallstones, no evidence of cholecystitis, CBD 6.9 mm - Lumbar MRI showed degenerative L5-S1 - Surgery Consulted - GI Consulted - EUS/ ERCP on Wednesday to be followed with CCY. CLD as tolerated. NPO past midnight on Wednesday. - Cont Unasyn 3 gm IVPB q6h - Cont D5W 100 ml/hr - Pain management 2. Hypertension - Cont home med: Cozzar 3. Diabetes - home meds held - ISS - Accu checks ACHS GI/DVT ppx - Protonix - SCD's Pt seen and examined in detail with Dr. Ellis. Sandro Valdez, PGY1 <Idalia Ellis - Last Filed: 07/03/17 15:37> Objective - Vital Signs/Intake and Output Vital Signs (last 24 hours): Temp Pulse Resp BP Pulse Ox 97.9 F 71 20 106/67 97 07/03/17 07:30 07/03/17 09:47 07/03/17 07:30 07/03/17 09:47 07/03/17 07:30 Intake and Output: 07/03/17 07/03/17 06:59 18:59 Intake Total 2880 0 Balance 2880 0 - Medications Medications: Current Medications Albuterol Sulfate (Albuterol 0.083% Inhal Yulissa (2.5 Mg/3 Ml) Ud) 2.5 mg IH [id number] PRN PRN Reason: Shortness of Breath Dextrose/Sodium Chloride (Dextrose 5%/0.45% Ns 1000 Ml) 1,000 mls @ 100 mls/hr IV .Q10H [facility] Last Admin: 07/03/17 05:04 Dose: 100 mls/hr Ampicillin Sodium/Sulbactam (Sodium 3 gm/ Sodium Chloride) 100 mls @ 200 mls/ hr IVPB Q6 [facility] PRN Reason: Protocol Last Admin: 07/03/17 13:00 Dose: 200 mls/hr Ketorolac Tromethamine (Toradol) 30 mg IVP Q6 PRN PRN Reason: Pain, moderate (4-7) Last Admin: 07/03/17 06:57 Dose: 30 mg Losartan Potassium (Cozaar) 25 mg PO BID [facility] Last Admin: 07/03/17 09:47 Dose: 25 mg Morphine Sulfate (Morphine) 2 mg IVP Q4H PRN PRN Reason: Pain, moderate (4-7) Stop: 07/04/17 21:58 Last Admin: 07/03/17 15:08 Dose: 2 mg Ondansetron HCl (Zofran Inj) 4 mg IVP Q4H PRN PRN Reason: Nausea/Vomiting Pantoprazole Sodium (Protonix Inj) 40 mg IVP DAILY [facility] Last Admin: 07/03/17 09:47 Dose: 40 mg - Labs Labs: 07/03/17 06:30 07/03/17 06:30 PT 10.8 SECONDS (9.4-12.5) 07/01/17 19:44 INR 0.99 (0.93-1.08) 07/01/17 19:44 APTT 28.6 Seconds (25.1-36.5) 07/01/17 19:44 Attending/Attestation - Attestation I have personally seen and examined this patient.: Yes I have fully participated in the care of the patient.: Yes I have reviewed all pertinent clinical information, including history, physical exam and plan: Yes Notes (Text): 07/03/17 15:30 56 year old female with past medical history of hypertension and diabetes who presented with complaint of RUQ pain and back pain. Abdominal ultrasound showed cholelithiasis and mild biliary ductal dilatation. MRCP showed extensive gallstones, mild dilated CBD and no evidence of cholelithiasis. GI and surgery are following the patient. Plan is for EUS +/- ERCP on Wednesday. Continue wtih protonix. Continue with diet as tolerated. LFTs are mildly elevated likely secondary to above. Hepatitis panel was negative. Continue with cozaar for hypertension. She is on insulin ss for diabetes. MRI spine showed degenerative disease L5-S1. Idalia Ellis MD Hospitalist.
--- NOTE | 2017-07-04 04:16 | PN ---
DATE: 07/03/2017 Surgical service requested change of GI service, we will sign off. Thank you very much for allowing us to participate in the care of the patient. Joan Weaver MD
[2017-07-04] MEDS: Dextrose 5%/0.45% NS 1,000 ML IV SCH ×2 (05:42→12:18)
--- NOTE | 2017-07-04 06:49 | CP.PCM.PN ---
<Myla Castillo - Last Filed: 07/04/17 11:27> Subjective - Date & Time of Evaluation Date of Evaluation: 07/04/17 Time of Evaluation: 06:46 - Subjective Subjective: Gastroenterology Fellow/PGY5 Progress Note Patient continues to have right lower back pain and right doron-abdomen discomfort. Tolerating low fat diet. No bowel movement since admission. A 12- point review of systems negative except for as above. Objective - Vital Signs/Intake and Output Vital Signs (last 24 hours): Temp Pulse Resp BP Pulse Ox 98.2 F 77 18 132/80 97 07/04/17 00:00 07/04/17 00:00 07/04/17 00:00 07/04/17 00:00 07/04/17 00:00 Intake and Output: 07/03/17 07/04/17 18:59 06:59 Intake Total 1500 420 Balance 1500 420 - Medications Medications: Current Medications Albuterol Sulfate (Albuterol 0.083% Inhal Yulissa (2.5 Mg/3 Ml) Ud) 2.5 mg IH [id number] PRN PRN Reason: Shortness of Breath Dextrose/Sodium Chloride (Dextrose 5%/0.45% Ns 1000 Ml) 1,000 mls @ 100 mls/hr IV .Q10H [facility] Last Admin: 07/04/17 05:42 Dose: 100 mls/hr Ampicillin Sodium/Sulbactam (Sodium 3 gm/ Sodium Chloride) 100 mls @ 200 mls/ hr IVPB Q6 [facility] PRN Reason: Protocol Last Admin: 07/04/17 05:42 Dose: 200 mls/hr Ketorolac Tromethamine (Toradol) 30 mg IVP Q6 PRN PRN Reason: Pain, moderate (4-7) Last Admin: 07/03/17 21:31 Dose: 30 mg Losartan Potassium (Cozaar) 25 mg PO BID [facility] Last Admin: 07/03/17 17:54 Dose: 25 mg Morphine Sulfate (Morphine) 2 mg IVP Q4H PRN PRN Reason: Pain, moderate (4-7) Stop: 07/04/17 21:58 Last Admin: 07/03/17 15:08 Dose: 2 mg Ondansetron HCl (Zofran Inj) 4 mg IVP Q4H PRN PRN Reason: Nausea/Vomiting Pantoprazole Sodium (Protonix Inj) 40 mg IVP DAILY [facility] Last Admin: 07/03/17 09:47 Dose: 40 mg - Labs Labs: 07/03/17 06:30 07/03/17 06:30 PT 10.8 SECONDS (9.4-12.5) 07/01/17 19:44 INR 0.99 (0.93-1.08) 07/01/17 19:44 APTT 28.6 Seconds (25.1-36.5) 07/01/17 19:44 - Constitutional Appears: Non-toxic, No Acute Distress - Head Exam Head Exam: ATRAUMATIC, NORMOCEPHALIC - Eye Exam Eye Exam: EOMI, PERRL Pupil Exam: PERRL. absent: Miosis, Mydriatic - ENT Exam ENT Exam: Mucous Membranes Moist, Normal Oropharynx - Neck Exam Neck Exam: Full ROM, Normal Inspection - Respiratory Exam Respiratory Exam: Clear to Ausculation Bilateral. absent: Rales, Rhonchi, Wheezes - Cardiovascular Exam Cardiovascular Exam: RRR, +S1, +S2. absent: Gallop, Rubs - GI/Abdominal Exam GI & Abdominal Exam: Soft, Tenderness, Normal Bowel Sounds. absent: Distended, Firm, Guarding, Rigid, Organomegaly, Rebound Additional comments: right doron-abdomen tenderness to palpation - Extremities Exam Extremities Exam: Normal Inspection. absent: Pedal Edema - Neurological Exam Neurological Exam: Alert, Awake - Psychiatric Exam Psychiatric exam: Normal Affect, Normal Mood - Skin Skin Exam: Dry, Intact, Normal Color, Warm Assessment and Plan - Assessment and Plan (Free Text) Assessment: 56 year old female with history of Hypertension, Diabetes, PUD, and cholelithiasis presenting with abdominal pain. Active treatment of symptomatic cholelithiasis with elevated transaminases. Prior EGD/colonoscopy 8 years ago with PUD, Gastritis, and colon polyp. Plan: >EUS tomorrow-assess for choledocholithiasis >ERCP to follow if EUS positive >NPO past midnight >follow up LFTs >surgery managing- cholecystectomy post EUS +/-ERCP >supportive care: pain control, anti-emetics >Miralax daily >will follow clinical course <Joshua Sibley MD - Last Filed: 07/04/17 18:31> Objective - Vital Signs/Intake and Output Vital Signs (last 24 hours): Temp Pulse Resp BP Pulse Ox 98 F 81 20 155/84 H 98 07/04/17 16:00 07/04/17 16:00 07/04/17 16:00 07/04/17 16:00 07/04/17 16:00 Intake and Output: 07/04/17 07/04/17 06:59 18:59 Intake Total 2820 480 Balance 2820 480 - Medications Medications: Current Medications Albuterol Sulfate (Albuterol 0.083% Inhal Yulissa (2.5 Mg/3 Ml) Ud) 2.5 mg IH [id number] PRN PRN Reason: Shortness of Breath Dextrose/Sodium Chloride (Dextrose 5%/0.45% Ns 1000 Ml) 1,000 mls @ 100 mls/hr IV .Q10H [facility] Last Admin: 07/04/17 12:18 Dose: 100 mls/hr Ampicillin Sodium/Sulbactam (Sodium 3 gm/ Sodium Chloride) 100 mls @ 200 mls/ hr IVPB Q6 [facility] PRN Reason: Protocol Last Admin: 07/04/17 12:19 Dose: 200 mls/hr Ketorolac Tromethamine (Toradol) 30 mg IVP Q6 PRN PRN Reason: Pain, moderate (4-7) Last Admin: 07/04/17 16:36 Dose: 30 mg Losartan Potassium (Cozaar) 25 mg PO BID [facility] Last Admin: 07/04/17 10:09 Dose: 25 mg Morphine Sulfate (Morphine) 2 mg IVP Q4H PRN PRN Reason: Pain, moderate (4-7) Stop: 07/04/17 21:58 Last Admin: 07/03/17 15:08 Dose: 2 mg Ondansetron HCl (Zofran Inj) 4 mg IVP Q4H PRN PRN Reason: Nausea/Vomiting Pantoprazole Sodium (Protonix Inj) 40 mg IVP DAILY [facility] Last Admin: 07/04/17 10:09 Dose: 40 mg Polyethylene Glycol (Miralax) 17 gm PO DAILY [facility] Last Admin: 07/04/17 10:09 Dose: 17 gm - Labs Labs: 07/04/17 06:30 07/04/17 06:30 PT 10.8 SECONDS (9.4-12.5) 07/01/17 19:44 INR 0.99 (0.93-1.08) 07/01/17 19:44 APTT 28.6 Seconds (25.1-36.5) 07/01/17 19:44 Attending/Attestation - Attestation I have personally seen and examined this patient.: Yes I have fully participated in the care of the patient.: Yes I have reviewed all pertinent clinical information, including history, physical exam and plan: Yes Notes (Text): 07/04/17 18:30 Patient seen and examined with GI fellow on rounds this am. This is a 56 year old female with history of Hypertension, Diabetes, PUD, and cholelithiasis presenting with abdominal pain in setting of cholelithiasis with MRCP showing dilated CBD. Total bilirubin normal with elevated transminases. Had similar symptoms 3 years ago in [place] and was advised to get GB removed but she did not get CCY then. Denies fever, nausea, vomiting. Schedule for EUS/ ERCP on Wednesday to be followed with CCY. Discussed with Dr Sharma. Clear liquid diet as tolerated. NPO past midnight on Wednesday.
[2017-07-04 07:49] LABS: BASO # 0.01 K/mm3 (0.0-2.0); BASO % 0.2 % (0.0-3.0); EOS # 0.3 (0.0-0.7); EOS % 7.6 % (1.5-5.0); GRAN # 1.92 (1.4-6.5); GRAN % 43.9 % (50.0-68.0); HEMATOCRIT 33.9 % (36.0-48.0); LYMPH # 1.7 (1.2-3.4); LYMPH % 38.7 % (22.0-35.0); MEAN CELL VOLUME 88.5 fl (80.0-105.0); MEAN CORPUSCULAR HGB CONC 33.9 g/dl (31.0-37.0); MEAN PLATELET VOLUME 9.3 fl (7.0-11.0); MONO # 0.4 (0.1-0.6); MONO % 9.6 % (1.0-6.0); RED CELL DISTRIBUTION WIDTH 11.9 % (11.5-14.5); WHITE BLOOD COUNT 4.4 10^3/ul (4.5-11.0)
[2017-07-04 08:14] LABS: ALB/GLOB RATIO 1.1 (1.1-1.8); ALKALINE PHOSPHATASE 79 U/L (38-126); ALT/SGPT 102 U/L (7-56); AST/SGOT 79 U/L (14-36); BILIRUBIN,TOTAL 0.8 mg/dL (0.2-1.3); BLOOD UREA NITROGEN 8 mg/dL (7-21); CALCIUM 8.9 mg/dL (8.4-10.5); CARBON DIOXIDE 30 mmol/L (21-33); CHLORIDE 105 mmol/L (98-107); GFR AFRICAN-AMERICAN > 60; GLUCOSE,RANDOM 233 mg/dL (70-110); MAGNESIUM 1.8 mg/dL (1.7-2.2); PHOSPHOROUS 3.9 mg/dL (2.5-4.5); SODIUM 143 mmol/L (132-148); TOTAL PROTEIN 6.6 g/dL (5.8-8.3)
--- NOTE | 2017-07-04 09:32 | CP.PCM.PN ---
<Gregory Ulrich - Last Filed: 07/04/17 09:34> Subjective - Date & Time of Evaluation Date of Evaluation: 07/04/17 Time of Evaluation: 07:00 - Subjective Subjective: General Surgery- Dr. Sharma Patient seen and examined at bedside this morning. no acute events overnight. Still having mid-epigastric pain that is reproducible to palpation. Tolerating current diet. Denies fevers, chills, chest pain, shortness of breath, vomiting, diarrhea. Objective - Vital Signs/Intake and Output Vital Signs (last 24 hours): Temp Pulse Resp BP Pulse Ox 98.3 F 74 18 139/88 97 07/04/17 07:30 07/04/17 07:30 07/04/17 07:30 07/04/17 07:30 07/04/17 07:30 Intake and Output: 07/04/17 07/04/17 06:59 18:59 Intake Total 2820 Balance 2820 - Medications Medications: Current Medications Albuterol Sulfate (Albuterol 0.083% Inhal Yulissa (2.5 Mg/3 Ml) Ud) 2.5 mg IH [id number] PRN PRN Reason: Shortness of Breath Dextrose/Sodium Chloride (Dextrose 5%/0.45% Ns 1000 Ml) 1,000 mls @ 100 mls/hr IV .Q10H [facility] Last Admin: 07/04/17 05:42 Dose: 100 mls/hr Ampicillin Sodium/Sulbactam (Sodium 3 gm/ Sodium Chloride) 100 mls @ 200 mls/ hr IVPB Q6 [facility] PRN Reason: Protocol Last Admin: 07/04/17 05:42 Dose: 200 mls/hr Ketorolac Tromethamine (Toradol) 30 mg IVP Q6 PRN PRN Reason: Pain, moderate (4-7) Last Admin: 07/03/17 21:31 Dose: 30 mg Losartan Potassium (Cozaar) 25 mg PO BID [facility] Last Admin: 07/03/17 17:54 Dose: 25 mg Morphine Sulfate (Morphine) 2 mg IVP Q4H PRN PRN Reason: Pain, moderate (4-7) Stop: 07/04/17 21:58 Last Admin: 07/03/17 15:08 Dose: 2 mg Ondansetron HCl (Zofran Inj) 4 mg IVP Q4H PRN PRN Reason: Nausea/Vomiting Pantoprazole Sodium (Protonix Inj) 40 mg IVP DAILY [facility] Last Admin: 07/03/17 09:47 Dose: 40 mg Polyethylene Glycol (Miralax) 17 gm PO DAILY [facility] - Labs Labs: 07/04/17 06:30 07/04/17 06:30 PT 10.8 SECONDS (9.4-12.5) 07/01/17 19:44 INR 0.99 (0.93-1.08) 07/01/17 19:44 APTT 28.6 Seconds (25.1-36.5) 07/01/17 19:44 - Constitutional Appears: Non-toxic, No Acute Distress - Head Exam Head Exam: ATRAUMATIC - Eye Exam Eye Exam: EOMI. absent: Scleral icterus - ENT Exam ENT Exam: Mucous Membranes Moist - Respiratory Exam Respiratory Exam: NORMAL BREATHING PATTERN. absent: Accessory Muscle Use, Respiratory Distress - Cardiovascular Exam Cardiovascular Exam: +S1, +S2. absent: Bradycardia, Tachycardia - GI/Abdominal Exam GI & Abdominal Exam: Soft, Normal Bowel Sounds. absent: Distended, Rigid, Tenderness - Extremities Exam Extremities Exam: Normal Inspection. absent: Calf Tenderness - Neurological Exam Neurological Exam: Alert, Awake, Oriented x3 - Skin Skin Exam: Normal Color, Warm Assessment and Plan - Assessment and Plan (Free Text) Assessment: 56F w/ cholelithiasis and RUQ and Mid-epigastric pain Plan: - GI recs * plan for EUS possible ERCP tomorrow - NPO after midnight - medical management per primary team - pending results of EUS +/- ERCP possible cholecystectomy in vs. outpatient - Pain and anti-emetic control - further recs per Dr. Edith Ulrich PGY1 <Umesh Sharma - Last Filed: 07/04/17 18:18> Objective - Vital Signs/Intake and Output Vital Signs (last 24 hours): Temp Pulse Resp BP Pulse Ox 98 F 81 20 155/84 H 98 07/04/17 16:00 07/04/17 16:00 07/04/17 16:00 07/04/17 16:00 07/04/17 16:00 Intake and Output: 07/04/17 07/04/17 06:59 18:59 Intake Total 2820 480 Balance 2820 480 - Medications Medications: Current Medications Albuterol Sulfate (Albuterol 0.083% Inhal Yulissa (2.5 Mg/3 Ml) Ud) 2.5 mg IH [id number] PRN PRN Reason: Shortness of Breath Dextrose/Sodium Chloride (Dextrose 5%/0.45% Ns 1000 Ml) 1,000 mls @ 100 mls/hr IV .Q10H [facility] Last Admin: 07/04/17 12:18 Dose: 100 mls/hr Ampicillin Sodium/Sulbactam (Sodium 3 gm/ Sodium Chloride) 100 mls @ 200 mls/ hr IVPB Q6 [facility] PRN Reason: Protocol Last Admin: 07/04/17 12:19 Dose: 200 mls/hr Ketorolac Tromethamine (Toradol) 30 mg IVP Q6 PRN PRN Reason: Pain, moderate (4-7) Last Admin: 07/04/17 16:36 Dose: 30 mg Losartan Potassium (Cozaar) 25 mg PO BID [facility] Last Admin: 07/04/17 10:09 Dose: 25 mg Morphine Sulfate (Morphine) 2 mg IVP Q4H PRN PRN Reason: Pain, moderate (4-7) Stop: 07/04/17 21:58 Last Admin: 07/03/17 15:08 Dose: 2 mg Ondansetron HCl (Zofran Inj) 4 mg IVP Q4H PRN PRN Reason: Nausea/Vomiting Pantoprazole Sodium (Protonix Inj) 40 mg IVP DAILY [facility] Last Admin: 07/04/17 10:09 Dose: 40 mg Polyethylene Glycol (Miralax) 17 gm PO DAILY [facility] Last Admin: 07/04/17 10:09 Dose: 17 gm - Labs Labs: 07/04/17 06:30 07/04/17 06:30 PT 10.8 SECONDS (9.4-12.5) 07/01/17 19:44 INR 0.99 (0.93-1.08) 07/01/17 19:44 APTT 28.6 Seconds (25.1-36.5) 07/01/17 19:44 Attending/Attestation - Attestation I have personally seen and examined this patient.: Yes I have fully participated in the care of the patient.: Yes I have reviewed all pertinent clinical information, including history, physical exam and plan: Yes Notes (Text): 07/04/17 18:17 Pt was seen and examined at bedside Agree with above note and assessment Pt with cholelithiasis and Cholecystitis with Dilated CBD MRCP is positive of Dilated ducts Pt would need EUS LFT in am C/w IV antibiotics Plan d.w pt in detail Risk and benefit explaine in detail.
[2017-07-04] MEDS: POLYETHYLENE GLYCOL 3350 17 GM/Dose PACKET PO SCH (10:09)
--- NOTE | 2017-07-04 11:47 | CP.PCM.PN ---
<TERRANCE VALDEZ - Last Filed: 07/04/17 11:44> Subjective - Date & Time of Evaluation Date of Evaluation: 07/04/17 Time of Evaluation: 11:44 - Subjective Subjective: Medicine Progress Note: Pt seen and examined at bedside. Pt still c/o of post prandial RUQ pain and nausea. Pt denied CP, SBO, vomiting, diarrhea, constipation, chills, fever, WINTER, fatigue, and dysuria. Objective - Vital Signs/Intake and Output Vital Signs (last 24 hours): Temp Pulse Resp BP Pulse Ox 98.3 F 74 18 139/88 97 07/04/17 07:30 07/04/17 10:09 07/04/17 07:30 07/04/17 10:09 07/04/17 07:30 Intake and Output: 07/04/17 07/04/17 06:59 18:59 Intake Total 2820 Balance 2820 - Medications Medications: Current Medications Albuterol Sulfate (Albuterol 0.083% Inhal Yulissa (2.5 Mg/3 Ml) Ud) 2.5 mg IH [id number] PRN PRN Reason: Shortness of Breath Dextrose/Sodium Chloride (Dextrose 5%/0.45% Ns 1000 Ml) 1,000 mls @ 100 mls/hr IV .Q10H [facility] Last Admin: 07/04/17 05:42 Dose: 100 mls/hr Ampicillin Sodium/Sulbactam (Sodium 3 gm/ Sodium Chloride) 100 mls @ 200 mls/ hr IVPB Q6 [facility] PRN Reason: Protocol Last Admin: 07/04/17 05:42 Dose: 200 mls/hr Ketorolac Tromethamine (Toradol) 30 mg IVP Q6 PRN PRN Reason: Pain, moderate (4-7) Last Admin: 07/03/17 21:31 Dose: 30 mg Losartan Potassium (Cozaar) 25 mg PO BID [facility] Last Admin: 07/04/17 10:09 Dose: 25 mg Morphine Sulfate (Morphine) 2 mg IVP Q4H PRN PRN Reason: Pain, moderate (4-7) Stop: 07/04/17 21:58 Last Admin: 07/03/17 15:08 Dose: 2 mg Ondansetron HCl (Zofran Inj) 4 mg IVP Q4H PRN PRN Reason: Nausea/Vomiting Pantoprazole Sodium (Protonix Inj) 40 mg IVP DAILY [facility] Last Admin: 07/04/17 10:09 Dose: 40 mg Polyethylene Glycol (Miralax) 17 gm PO DAILY [facility] Last Admin: 07/04/17 10:09 Dose: 17 gm - Labs Labs: 07/04/17 06:30 07/04/17 06:30 PT 10.8 SECONDS (9.4-12.5) 07/01/17 19:44 INR 0.99 (0.93-1.08) 07/01/17 19:44 APTT 28.6 Seconds (25.1-36.5) 07/01/17 19:44 - Constitutional Appears: No Acute Distress - Head Exam Head Exam: ATRAUMATIC, NORMOCEPHALIC - Eye Exam Eye Exam: EOMI, Normal appearance, PERRL - ENT Exam ENT Exam: Mucous Membranes Moist - Neck Exam Neck Exam: Full ROM. absent: Lymphadenopathy, Tenderness, Thyromegaly - Respiratory Exam Respiratory Exam: Clear to Ausculation Bilateral. absent: Accessory Muscle Use , Rales, Rhonchi, Wheezes, Respiratory Distress - Cardiovascular Exam Cardiovascular Exam: RRR, +S1, +S2. absent: Clicks, Diastolic murmur, Gallop, Rubs, Murmur - GI/Abdominal Exam GI & Abdominal Exam: Soft, Tenderness (RUQ). absent: Distended, Firm, Guarding , Rebound - Extremities Exam Extremities Exam: Normal Inspection - Neurological Exam Neurological Exam: Alert, Awake, Oriented x3 - Psychiatric Exam Psychiatric exam: Normal Affect, Normal Mood - Skin Skin Exam: Dry, Intact, Normal Color, Warm Assessment and Plan - Assessment and Plan (Free Text) Assessment: 56 year old female with a past medical history of hypertension, type II diabetes and gastritis who is being admitted for intractable RUQ pain 2/2 cholelithiasis and biliary colic. Plan: 1. Cholelithiasis - GI Consulted EUS tomorrow-assess for choledocholithiasis ERCP to follow if EUS positive NPO past midnight - Surgery Consulted Cholecystectomy tomorrow post EUS/ERCP - Cont Unasyn 3 gm IVPB q6h - Cont D5W 100 ml/hr - Pain management - Abdominal u/s done in the emergency department showed chelelithiasis and mild biliary ductal dilatation and to consider non-emergent MRCP. - MRCP showed extensive gallstones, no evidence of cholecystitis, CBD 6.9 mm - Lumbar MRI showed degenerative L5-S1 2. Hypertension - Cont home med: Cozaar 3. Diabetes - home meds held - ISS - Accu checks ACHS GI/DVT ppx - Protonix - SCD's Pt seen and examined in detail with Dr. Ellis. Sandro Valdez, PGY1 <Idalia Ellis - Last Filed: 07/04/17 12:33> Objective - Vital Signs/Intake and Output Vital Signs (last 24 hours): Temp Pulse Resp BP Pulse Ox 98.3 F 74 18 139/88 97 07/04/17 07:30 07/04/17 10:09 07/04/17 07:30 07/04/17 10:09 07/04/17 07:30 Intake and Output: 07/04/17 07/04/17 06:59 18:59 Intake Total 2820 Balance 2820 - Medications Medications: Current Medications Albuterol Sulfate (Albuterol 0.083% Inhal Yulissa (2.5 Mg/3 Ml) Ud) 2.5 mg IH [id number] PRN PRN Reason: Shortness of Breath Dextrose/Sodium Chloride (Dextrose 5%/0.45% Ns 1000 Ml) 1,000 mls @ 100 mls/hr IV .Q10H [facility] Last Admin: 07/04/17 12:18 Dose: 100 mls/hr Ampicillin Sodium/Sulbactam (Sodium 3 gm/ Sodium Chloride) 100 mls @ 200 mls/ hr IVPB Q6 [facility] PRN Reason: Protocol Last Admin: 07/04/17 12:19 Dose: 200 mls/hr Ketorolac Tromethamine (Toradol) 30 mg IVP Q6 PRN PRN Reason: Pain, moderate (4-7) Last Admin: 07/03/17 21:31 Dose: 30 mg Losartan Potassium (Cozaar) 25 mg PO BID [facility] Last Admin: 07/04/17 10:09 Dose: 25 mg Morphine Sulfate (Morphine) 2 mg IVP Q4H PRN PRN Reason: Pain, moderate (4-7) Stop: 07/04/17 21:58 Last Admin: 07/03/17 15:08 Dose: 2 mg Ondansetron HCl (Zofran Inj) 4 mg IVP Q4H PRN PRN Reason: Nausea/Vomiting Pantoprazole Sodium (Protonix Inj) 40 mg IVP DAILY [facility] Last Admin: 07/04/17 10:09 Dose: 40 mg Polyethylene Glycol (Miralax) 17 gm PO DAILY [facility] Last Admin: 07/04/17 10:09 Dose: 17 gm - Labs Labs: 07/04/17 06:30 07/04/17 06:30 PT 10.8 SECONDS (9.4-12.5) 07/01/17 19:44 INR 0.99 (0.93-1.08) 07/01/17 19:44 APTT 28.6 Seconds (25.1-36.5) 07/01/17 19:44 Attending/Attestation - Attestation I have personally seen and examined this patient.: Yes I have fully participated in the care of the patient.: Yes I have reviewed all pertinent clinical information, including history, physical exam and plan: Yes Notes (Text): 07/04/17 12:32 56 year old female with past medical history of hypertension and diabetes who presented with complaint of RUQ pain and low back pain. Abdominal ultrasound showed cholelithiasis and mild biliary ductal dilatation. MRCP showed extensive gallstones, mild dilated CBD and no evidence of cholelithiasis. She is being followed by GI and surgery. Plan is for EUS +/- ERCP tomorrow. Continue wtih protonix. Continue with diet as tolerated. LFTs are mildly elevated likely secondary to above. Hepatitis panel was negative. Continue with cozaar for hypertension. She is on insulin ss for diabetes. MRI spine showed degenerative disease L5-S1. Idalia Ellis MD Hospitalist.
[2017-07-05] MEDS: POLYETHYLENE GLYCOL 3350 17 GM/Dose PACKET PO SCH ×2 (09:18→17:16)
--- NOTE | 2017-07-05 09:35 | CP.PCM.PN ---
<Jesu Best - Last Filed: 07/05/17 10:27> Subjective - Date & Time of Evaluation Date of Evaluation: 07/05/17 Time of Evaluation: 08:00 - Subjective Subjective: PGY4 GI Follow-up Pt seen and examined bedside slight abd pain in the RUQ Denies any fever, chills, or diaphoresis has been NPO Denies any BM since admission ROS: 10 point ROS conducted, neg other than above Objective - Vital Signs/Intake and Output Vital Signs (last 24 hours): Temp Pulse Resp BP Pulse Ox 98.0 F 79 20 114/73 96 07/05/17 07:30 07/05/17 07:30 07/05/17 07:30 07/05/17 07:30 07/05/17 07:30 Intake and Output: 07/05/17 07/05/17 06:59 18:59 Intake Total 2400 Balance 2400 - Medications Medications: Current Medications Albuterol Sulfate (Albuterol 0.083% Inhal Yulissa (2.5 Mg/3 Ml) Ud) 2.5 mg IH [id number] PRN PRN Reason: Shortness of Breath Dextrose/Sodium Chloride (Dextrose 5%/0.45% Ns 1000 Ml) 1,000 mls @ 100 mls/hr IV .Q10H [facility] Last Admin: 07/04/17 12:18 Dose: 100 mls/hr Ampicillin Sodium/Sulbactam (Sodium 3 gm/ Sodium Chloride) 100 mls @ 200 mls/ hr IVPB Q6 [facility] PRN Reason: Protocol Last Admin: 07/05/17 05:44 Dose: 200 mls/hr Ketorolac Tromethamine (Toradol) 30 mg IVP Q6 PRN PRN Reason: Pain, moderate (4-7) Last Admin: 07/04/17 23:27 Dose: 30 mg Losartan Potassium (Cozaar) 25 mg PO BID [facility] Last Admin: 07/04/17 10:09 Dose: 25 mg Ondansetron HCl (Zofran Inj) 4 mg IVP Q4H PRN PRN Reason: Nausea/Vomiting Pantoprazole Sodium (Protonix Inj) 40 mg IVP DAILY [facility] Last Admin: 07/04/17 10:09 Dose: 40 mg Polyethylene Glycol (Miralax) 17 gm PO DAILY [facility] Last Admin: 07/04/17 10:09 Dose: 17 gm - Labs Labs: 07/04/17 06:30 07/04/17 06:30 PT 10.8 SECONDS (9.4-12.5) 07/01/17 19:44 INR 0.99 (0.93-1.08) 07/01/17 19:44 APTT 28.6 Seconds (25.1-36.5) 07/01/17 19:44 - Constitutional Appears: Non-toxic, No Acute Distress - Head Exam Head Exam: ATRAUMATIC, NORMOCEPHALIC - Eye Exam Eye Exam: Normal appearance - ENT Exam ENT Exam: Mucous Membranes Moist, Normal Exam - Respiratory Exam Respiratory Exam: Clear to Ausculation Bilateral, NORMAL BREATHING PATTERN. absent: Rales, Rhonchi, Wheezes, Respiratory Distress - Cardiovascular Exam Cardiovascular Exam: REGULAR RHYTHM, +S1 - GI/Abdominal Exam GI & Abdominal Exam: Soft, Tenderness (RUQ), Normal Bowel Sounds. absent: Guarding, Rigid, Hyperactive Bowel Sounds, Organomegaly - Extremities Exam Extremities Exam: absent: Joint Swelling, Pedal Edema - Neurological Exam Neurological Exam: Awake, Oriented x3 - Psychiatric Exam Psychiatric exam: Normal Affect, Normal Mood - Skin Skin Exam: Dry, Intact, Normal Color, Warm Assessment and Plan - Assessment and Plan (Free Text) Assessment: 56 year old female with history of Hypertension, Diabetes, PUD, and cholelithiasis presenting with abdominal pain. Active treatment of symptomatic cholelithiasis with elevated transaminases. Prior EGD/colonoscopy 8 years ago with PUD, Gastritis, and colon polyp. Cholelithiasis Dilated CBD, R/O Stone Plan: -EUS,EGD tomorrow 07/06/17 -ERCP to follow if EUS positive -start clears -NPO past midnight -follow up LFTs -surgery managing- cholecystectomy post EUS +/-ERCP -supportive care: pain control, anti-emetics -Miralax daily -will follow clinical course D/w Dr. Cook <Morgan Cook - Last Filed: 07/05/17 10:57> Objective - Vital Signs/Intake and Output Vital Signs (last 24 hours): Temp Pulse Resp BP Pulse Ox 98.0 F 80 20 114/73 96 07/05/17 07:30 07/05/17 09:21 07/05/17 07:30 07/05/17 09:21 07/05/17 07:30 Intake and Output: 07/05/17 07/05/17 06:59 18:59 Intake Total 2400 Balance 2400 - Medications Medications: Current Medications Albuterol Sulfate (Albuterol 0.083% Inhal Yulissa (2.5 Mg/3 Ml) Ud) 2.5 mg IH [id number] PRN PRN Reason: Shortness of Breath Dextrose/Sodium Chloride (Dextrose 5%/0.45% Ns 1000 Ml) 1,000 mls @ 100 mls/hr IV .Q10H [facility] Last Admin: 07/04/17 12:18 Dose: 100 mls/hr Ampicillin Sodium/Sulbactam (Sodium 3 gm/ Sodium Chloride) 100 mls @ 200 mls/ hr IVPB Q6 [facility] PRN Reason: Protocol Last Admin: 07/05/17 05:44 Dose: 200 mls/hr Ketorolac Tromethamine (Toradol) 30 mg IVP Q6 PRN PRN Reason: Pain, moderate (4-7) Last Admin: 07/05/17 09:25 Dose: 30 mg Losartan Potassium (Cozaar) 25 mg PO BID [facility] Last Admin: 07/05/17 09:21 Dose: 25 mg Ondansetron HCl (Zofran Inj) 4 mg IVP Q4H PRN PRN Reason: Nausea/Vomiting Last Admin: 07/05/17 09:24 Dose: 4 mg Pantoprazole Sodium (Protonix Inj) 40 mg IVP DAILY [facility] Last Admin: 07/05/17 09:18 Dose: 40 mg Polyethylene Glycol (Miralax) 17 gm PO DAILY [facility] Last Admin: 07/05/17 09:18 Dose: 17 gm - Labs Labs: 07/05/17 10:15 07/04/17 06:30 PT 10.8 SECONDS (9.4-12.5) 07/01/17 19:44 INR 0.99 (0.93-1.08) 07/01/17 19:44 APTT 28.6 Seconds (25.1-36.5) 07/01/17 19:44 Attending/Attestation - Attestation I have personally seen and examined this patient.: Yes I have fully participated in the care of the patient.: Yes I have reviewed all pertinent clinical information, including history, physical exam and plan: Yes Notes (Text): 07/05/17 10:54 I have seen and examined patient with GI fellow. No acute events overnight. She is seen resting in bed comfortably, does endorse ongoing RUQ abdominal pain. No reported nausea, vomiting, fever/chills. Review of vitals from today are normal. DM / HTN Abdominal pain - cholelithiasis, dilated CBD Transaminitis - Clear liquid diet as tolerated - LFTs stable, continue to monitor - Continue antibiotic therapy as per medical team - Anti-emetic therapy PRN, pain control - Plan for EUS for further evaluation of dilated CBD in setting of known cholelithiasis +/- ERCP tomorrow. NPO after midnight.
[2017-07-05 10:40] LABS: BASO # 0.01 K/mm3 (0.0-2.0); BASO % 0.2 % (0.0-3.0); EOS # 0.3 (0.0-0.7); EOS % 6.8 % (1.5-5.0); GRAN # 1.61 (1.4-6.5); GRAN % 39.5 % (50.0-68.0); HEMATOCRIT 33.8 % (36.0-48.0); LYMPH # 1.8 (1.2-3.4); LYMPH % 44.5 % (22.0-35.0); MEAN CELL VOLUME 88.7 fl (80.0-105.0); MEAN CORPUSCULAR HEMOGLOBIN 30.7 pg (25.0-35.0); MEAN CORPUSCULAR HGB CONC 34.6 g/dl (31.0-37.0); MEAN PLATELET VOLUME 9.4 fl (7.0-11.0); MONO # 0.4 (0.1-0.6); RED CELL DISTRIBUTION WIDTH 11.9 % (11.5-14.5); WHITE BLOOD COUNT 4.1 10^3/ul (4.5-11.0)
[2017-07-05 10:50] LABS: ALB/GLOB RATIO 1.1 (1.1-1.8); ALKALINE PHOSPHATASE 89 U/L (38-126); ALT/SGPT 108 U/L (7-56); AST/SGOT 81 U/L (14-36); BILIRUBIN,TOTAL 0.9 mg/dL (0.2-1.3); BLOOD UREA NITROGEN 6 mg/dL (7-21); CALCIUM 9.2 mg/dL (8.4-10.5); CARBON DIOXIDE 28 mmol/L (21-33); CHLORIDE 105 mmol/L (98-107); GFR AFRICAN-AMERICAN > 60; GLUCOSE,RANDOM 293 mg/dL (70-110); MAGNESIUM 1.8 mg/dL (1.7-2.2); PHOSPHOROUS 4.1 mg/dL (2.5-4.5); POTASSIUM 4.6 mmol/L (3.6-5.0); SODIUM 142 mmol/L (132-148); TOTAL PROTEIN 7.3 g/dL (5.8-8.3)
--- NOTE | 2017-07-05 15:00 | CP.PCM.PN ---
<Wilfrido Art - Last Filed: 07/05/17 14:57> Subjective - Date & Time of Evaluation Date of Evaluation: 07/05/17 Time of Evaluation: 14:57 - Subjective Subjective: Patient seen and examined at bedside on general medical floor. No acute events overnight. Karla continues to express pain from her right flank to RUQ. Patient denies chest pain, shortness of breath, nausea, vomiting, diarrhea, constipation, chills, fever. Patient ERCP with GI has been moved to tomorrow. Objective - Vital Signs/Intake and Output Vital Signs (last 24 hours): Temp Pulse Resp BP Pulse Ox 98.0 F 80 20 114/73 96 07/05/17 07:30 07/05/17 09:21 07/05/17 07:30 07/05/17 09:21 07/05/17 07:30 Intake and Output: 07/05/17 07/05/17 06:59 18:59 Intake Total 2400 720 Balance 2400 720 - Medications Medications: Current Medications Albuterol Sulfate (Albuterol 0.083% Inhal Yulissa (2.5 Mg/3 Ml) Ud) 2.5 mg IH [id number] PRN PRN Reason: Shortness of Breath Dextrose/Sodium Chloride (Dextrose 5%/0.45% Ns 1000 Ml) 1,000 mls @ 100 mls/hr IV .Q10H [facility] Last Admin: 07/04/17 12:18 Dose: 100 mls/hr Ampicillin Sodium/Sulbactam (Sodium 3 gm/ Sodium Chloride) 100 mls @ 200 mls/ hr IVPB Q6 [facility] PRN Reason: Protocol Last Admin: 07/05/17 12:21 Dose: 200 mls/hr Ketorolac Tromethamine (Toradol) 30 mg IVP Q6 PRN PRN Reason: Pain, moderate (4-7) Last Admin: 07/05/17 09:25 Dose: 30 mg Losartan Potassium (Cozaar) 25 mg PO BID [facility] Last Admin: 07/05/17 09:21 Dose: 25 mg Ondansetron HCl (Zofran Inj) 4 mg IVP Q4H PRN PRN Reason: Nausea/Vomiting Last Admin: 07/05/17 09:24 Dose: 4 mg Pantoprazole Sodium (Protonix Inj) 40 mg IVP DAILY [facility] Last Admin: 07/05/17 09:18 Dose: 40 mg Polyethylene Glycol (Miralax) 17 gm PO BID [facility] - Labs Labs: 07/05/17 10:15 07/05/17 10:15 PT 10.8 SECONDS (9.4-12.5) 07/01/17 19:44 INR 0.99 (0.93-1.08) 07/01/17 19:44 APTT 28.6 Seconds (25.1-36.5) 07/01/17 19:44 - Head Exam Head Exam: ATRAUMATIC, NORMAL INSPECTION, NORMOCEPHALIC - Eye Exam Eye Exam: EOMI, PERRL - ENT Exam ENT Exam: Mucous Membranes Moist - Neck Exam Neck Exam: Full ROM - Respiratory Exam Respiratory Exam: Clear to Ausculation Bilateral, NORMAL BREATHING PATTERN. absent: Rhonchi, Wheezes - Cardiovascular Exam Cardiovascular Exam: REGULAR RHYTHM, +S1, +S2. absent: JVD - GI/Abdominal Exam GI & Abdominal Exam: Distended, Soft, Tenderness (RUQ), Normal Bowel Sounds - Extremities Exam Extremities Exam: Normal Capillary Refill, Normal Inspection - Back Exam Back Exam: NORMAL INSPECTION. absent: CVA tenderness (L), CVA tenderness (R) - Neurological Exam Neurological Exam: Alert, Awake, CN II-XII Intact, Oriented x3 - Psychiatric Exam Psychiatric exam: Normal Affect, Normal Mood - Skin Skin Exam: Dry, Normal Color Assessment and Plan - Assessment and Plan (Free Text) Assessment: Patient is a 56 year old female with past medical history of hypertension, DM2, peptic ulcer disease, gastritis and cholelithiasis who was admitted for intractable abdominal pain located in the RUQ secondary to cholelthiasis and biliary colic. Plan: 1. Cholelithiasis - Abdominal u/s done in the emergency department showed chelelithiasis and mild biliary ductal dilatation and to consider non-emergent MRCP. - MRCP showed extensive gallstones, no evidence of cholecystitis, CBD 6.9 mm - Lumbar MRI showed degenerative L5-S1 - GI Consulted EUS,EGD tomorrow-assess for choledocholithiasis ERCP to follow if EUS positive - Surgery Consulted Cholecystectomy tomorrow post EUS/ERCP - Cont Unasyn 3 gm IVPB q6h - Cont D5W 100 ml/hr - Pain management 2. Hypertension - Cont home med: Cozaar - Continue to monitor 3. Diabetes - home meds held - ISS - Accu checks ACHS GI/DVT ppx - Protonix - SCD's Case and plan discussed with attending <Lobo Keenan - Last Filed: 07/06/17 10:14> Objective - Vital Signs/Intake and Output Vital Signs (last 24 hours): Temp Pulse Resp BP Pulse Ox 97.8 F 62 18 140/90 99 07/06/17 07:30 07/06/17 09:43 07/06/17 07:30 07/06/17 09:43 07/06/17 07:30 Intake and Output: 07/06/17 07/06/17 06:59 18:59 Intake Total 3180 Balance 3180 - Medications Medications: Current Medications Albuterol Sulfate (Albuterol 0.083% Inhal Yulissa (2.5 Mg/3 Ml) Ud) 2.5 mg IH [id number] PRN PRN Reason: Shortness of Breath Hydralazine HCl (Apresoline) 10 mg PO QID PRN PRN Reason: hypertension Hydromorphone HCl (Dilaudid) 0.5 mg IVP Q4H PRN PRN Reason: Pain, severe (8-10) Last Admin: 07/06/17 09:46 Dose: 0.5 mg Dextrose/Sodium Chloride (Dextrose 5%/0.45% Ns 1000 Ml) 1,000 mls @ 100 mls/hr IV .Q10H [facility] Last Admin: 07/06/17 05:05 Dose: 100 mls/hr Ampicillin Sodium/Sulbactam (Sodium 3 gm/ Sodium Chloride) 100 mls @ 200 mls/ hr IVPB Q6 [facility] PRN Reason: Protocol Last Admin: 07/06/17 05:46 Dose: 200 mls/hr Losartan Potassium (Cozaar) 25 mg PO BID [facility] Last Admin: 07/06/17 09:43 Dose: 25 mg Ondansetron HCl (Zofran Inj) 4 mg IVP Q4H PRN PRN Reason: Nausea/Vomiting Last Admin: 07/06/17 09:46 Dose: 4 mg Pantoprazole Sodium (Protonix Inj) 40 mg IVP DAILY [facility] Last Admin: 07/06/17 09:44 Dose: 40 mg Polyethylene Glycol (Miralax) 17 gm PO BID [facility] Last Admin: 07/06/17 09:47 Dose: Not Given - Labs Labs: 07/06/17 06:38 07/06/17 06:38 PT 12.8 SECONDS (9.4-12.5) H 07/06/17 07:43 INR 1.16 (0.93-1.08) H 07/06/17 07:43 APTT 28.6 Seconds (25.1-36.5) 07/01/17 19:44 Attending/Attestation - Attestation I have personally seen and examined this patient.: Yes I have fully participated in the care of the patient.: Yes I have reviewed all pertinent clinical information, including history, physical exam and plan: Yes Notes (Text): 07/06/17 10:12 Patient was seen and examined with medical technologist clinical. Agreed with resident assessment and plan. 56 year old female with past medical history of hypertension and diabetes was admitted with RUQ pain and low back pain. Abdominal ultrasound showed cholelithiasis and mild biliary ductal dilatation. MRCP showed extensive gallstones, mild dilated CBD . LFT are stable.Patient EUS and ERCP is rescheduled for tomorrow.We will monitor.Patient is afebrile. GI and surgery are following. Management plan was discussed in detail with patient Education was provided.
[2017-07-05] MEDS: Dextrose 5%/0.45% NS 1,000 ML IV SCH (16:26)
--- NOTE | 2017-07-05 17:03 | CP.PCM.PN ---
<Shaina Curran - Last Filed: 07/05/17 16:59> Subjective - Date & Time of Evaluation Date of Evaluation: 07/05/17 Time of Evaluation: 16:59 - Subjective Subjective: General Surgery - Dr. Sharma PT S&E. ALANA. Pt denies any complaints, still with mild abdominal discomfort. She is currently NPO but denies any N/V, F/C, SOb/Cp. EUS postponed until tomorrow as per GI. Objective - Vital Signs/Intake and Output Vital Signs (last 24 hours): Temp Pulse Resp BP Pulse Ox 98.0 F 80 20 114/73 96 07/05/17 07:30 07/05/17 09:21 07/05/17 07:30 07/05/17 09:21 07/05/17 07:30 Intake and Output: 07/05/17 07/05/17 06:59 18:59 Intake Total 2400 720 Balance 2400 720 - Medications Medications: Current Medications Albuterol Sulfate (Albuterol 0.083% Inhal Yulissa (2.5 Mg/3 Ml) Ud) 2.5 mg IH [id number] PRN PRN Reason: Shortness of Breath Dextrose/Sodium Chloride (Dextrose 5%/0.45% Ns 1000 Ml) 1,000 mls @ 100 mls/hr IV .Q10H [facility] Last Admin: 07/05/17 16:26 Dose: 100 mls/hr Ampicillin Sodium/Sulbactam (Sodium 3 gm/ Sodium Chloride) 100 mls @ 200 mls/ hr IVPB Q6 [facility]I PRN Reason: Protocol Last Admin: 07/05/17 12:21 Dose: 200 mls/hr Ketorolac Tromethamine (Toradol) 30 mg IVP Q6 PRN PRN Reason: Pain, moderate (4-7) Last Admin: 07/05/17 15:49 Dose: 30 mg Losartan Potassium (Cozaar) 25 mg PO BID [facility] Last Admin: 07/05/17 09:21 Dose: 25 mg Ondansetron HCl (Zofran Inj) 4 mg IVP Q4H PRN PRN Reason: Nausea/Vomiting Last Admin: 07/05/17 15:49 Dose: 4 mg Pantoprazole Sodium (Protonix Inj) 40 mg IVP DAILY [facility] Last Admin: 07/05/17 09:18 Dose: 40 mg Polyethylene Glycol (Miralax) 17 gm PO BID [facility] - Labs Labs: 07/05/17 10:15 07/05/17 10:15 PT 10.8 SECONDS (9.4-12.5) 07/01/17 19:44 INR 0.99 (0.93-1.08) 07/01/17 19:44 APTT 28.6 Seconds (25.1-36.5) 07/01/17 19:44 - Constitutional Appears: No Acute Distress - Head Exam Head Exam: ATRAUMATIC, NORMAL INSPECTION, NORMOCEPHALIC - Eye Exam Eye Exam: Normal appearance - Respiratory Exam Respiratory Exam: NORMAL BREATHING PATTERN. absent: Respiratory Distress - Cardiovascular Exam Cardiovascular Exam: REGULAR RHYTHM - GI/Abdominal Exam GI & Abdominal Exam: Soft. absent: Distended, Firm, Guarding, Rigid, Tenderness , Rebound - Neurological Exam Neurological Exam: Alert, Oriented x3 - Psychiatric Exam Psychiatric exam: Normal Affect, Normal Mood - Skin Skin Exam: Dry, Intact Assessment and Plan - Assessment and Plan (Free Text) Assessment: 56 yo F w/ cholelithiasis, Cholecystitis and dilated CBD -EUS tomorrow with GI team -F/U LFTs -Lap liam tentatively scheduled for Wednesday -NPO after midnight james Curran PGY3 <Umesh Sharma B - Last Filed: 07/11/17 15:07> Objective - Vital Signs/Intake and Output Vital Signs (last 24 hours): Temp Pulse Resp BP Pulse Ox 98.4 F 94 H 18 143/84 98 07/08/17 07:30 07/08/17 09:20 07/08/17 07:30 07/08/17 09:20 07/08/17 07:30 - Labs Labs: 07/08/17 06:41 07/08/17 06:41 PT 12.8 SECONDS (9.4-12.5) H 07/06/17 07:43 INR 1.16 (0.93-1.08) H 07/06/17 07:43 APTT 28.6 Seconds (25.1-36.5) 07/01/17 19:44 Attending/Attestation - Attestation I have personally seen and examined this patient.: Yes I have fully participated in the care of the patient.: Yes I have reviewed all pertinent clinical information, including history, physical exam and plan: Yes Notes (Text): Pt was seen and examined at bedside Agree with above note and assessment Pt with Cholelithiasis, Chronic Cholecystitis and Dilated CBD EUS tomorrow C.w current mx Plan d.w pt in detail
[2017-07-06] MEDS: Dextrose 5%/0.45% NS 1,000 ML IV SCH (05:05)
[2017-07-06 06:46] LABS: BASO # 0.02 K/mm3 (0.0-2.0); BASO % 0.5 % (0.0-3.0); EOS # 0.3 (0.0-0.7); EOS % 6.7 % (1.5-5.0); GRAN # 1.77 (1.4-6.5); GRAN % 41.2 % (50.0-68.0); HEMATOCRIT 33.4 % (36.0-48.0); LYMPH # 1.7 (1.2-3.4); MEAN CELL VOLUME 88.4 fl (80.0-105.0); MEAN CORPUSCULAR HEMOGLOBIN 30.2 pg (25.0-35.0); MEAN CORPUSCULAR HGB CONC 34.1 g/dl (31.0-37.0); MEAN PLATELET VOLUME 9.2 fl (7.0-11.0); MONO # 0.5 (0.1-0.6); MONO % 11.6 % (1.0-6.0); RED CELL DISTRIBUTION WIDTH 11.9 % (11.5-14.5); WHITE BLOOD COUNT 4.3 10^3/ul (4.5-11.0)
[2017-07-06 07:03] LABS: ALB/GLOB RATIO 1.1 (1.1-1.8); ALKALINE PHOSPHATASE 92 U/L (38-126); ALT/SGPT 98 U/L (7-56); AST/SGOT 65 U/L (14-36); BILIRUBIN,TOTAL 0.8 mg/dL (0.2-1.3); BLOOD UREA NITROGEN 5 mg/dL (7-21); CALCIUM 9.2 mg/dL (8.4-10.5); CARBON DIOXIDE 32 mmol/L (21-33); CHLORIDE 105 mmol/L (98-107); GFR AFRICAN-AMERICAN > 60; GLUCOSE,RANDOM 231 mg/dL (70-110); POTASSIUM 4.2 mmol/L (3.6-5.0); SODIUM 146 mmol/L (132-148)
--- NOTE | 2017-07-06 07:28 | CP.PCM.PN ---
<Omar Morrow - Last Filed: 07/06/17 07:24> Subjective - Date & Time of Evaluation Date of Evaluation: 07/06/17 Time of Evaluation: 07:25 - Subjective Subjective: PGY1 General Surgery Note for Dr. Sharma Patient seen and examined at bedside this morning. No acute events overnight. Patient reports mild abdominal discomfort but states her pain has been well controlled. She is currently NPO for a EUS scheduled for later this morning. Patient denies fevers, chills, nausea, vomiting, shortness of breath or chest pain. Objective - Vital Signs/Intake and Output Vital Signs (last 24 hours): Temp Pulse Resp BP Pulse Ox 98.6 F 76 18 143/80 99 07/06/17 00:00 07/06/17 00:00 07/06/17 00:00 07/06/17 01:00 07/06/17 00:00 Intake and Output: 07/06/17 07/06/17 06:59 18:59 Intake Total 3180 Balance 3180 - Medications Medications: Current Medications Albuterol Sulfate (Albuterol 0.083% Inhal Yulissa (2.5 Mg/3 Ml) Ud) 2.5 mg IH [id number] PRN PRN Reason: Shortness of Breath Dextrose/Sodium Chloride (Dextrose 5%/0.45% Ns 1000 Ml) 1,000 mls @ 100 mls/hr IV .Q10H [facility] Last Admin: 07/06/17 05:05 Dose: 100 mls/hr Ampicillin Sodium/Sulbactam (Sodium 3 gm/ Sodium Chloride) 100 mls @ 200 mls/ hr IVPB Q6 ELI PRN Reason: Protocol Last Admin: 07/06/17 05:46 Dose: 200 mls/hr Ketorolac Tromethamine (Toradol) 30 mg IVP Q6 PRN PRN Reason: Pain, moderate (4-7) Last Admin: 07/06/17 00:11 Dose: 30 mg Losartan Potassium (Cozaar) 25 mg PO BID [facility] Last Admin: 07/05/17 17:30 Dose: 25 mg Ondansetron HCl (Zofran Inj) 4 mg IVP Q4H PRN PRN Reason: Nausea/Vomiting Last Admin: 07/05/17 15:49 Dose: 4 mg Pantoprazole Sodium (Protonix Inj) 40 mg IVP DAILY [facility] Last Admin: 07/05/17 09:18 Dose: 40 mg Polyethylene Glycol (Miralax) 17 gm PO BID [facility] Last Admin: 07/05/17 17:16 Dose: 17 gm - Labs Labs: 07/06/17 06:38 07/06/17 06:38 PT 10.8 SECONDS (9.4-12.5) 07/01/17 19:44 INR 0.99 (0.93-1.08) 07/01/17 19:44 APTT 28.6 Seconds (25.1-36.5) 07/01/17 19:44 - Constitutional Appears: Non-toxic, No Acute Distress - Head Exam Head Exam: ATRAUMATIC, NORMOCEPHALIC - Eye Exam Eye Exam: EOMI, Normal appearance. absent: Scleral icterus - ENT Exam ENT Exam: Mucous Membranes Moist - Cardiovascular Exam Cardiovascular Exam: REGULAR RHYTHM - GI/Abdominal Exam GI & Abdominal Exam: Guarding (RUQ), Soft, Tenderness (RUQ). absent: Distended , Firm, Rigid - Neurological Exam Neurological Exam: Alert, Awake, Oriented x3 - Psychiatric Exam Psychiatric exam: Normal Affect, Normal Mood - Skin Skin Exam: Dry, Warm Assessment and Plan - Assessment and Plan (Free Text) Assessment: 56 yo F w/ cholelithiasis, Cholecystitis and dilated CBD Plan: -F/U EUS with GI later this morning. -F/U LFTs -Lap liam tentatively scheduled for Wednesday -NPO after midnight tonight Will discuss with Dr. Edith Morrow PGY1 <Umesh Sharma - Last Filed: 07/11/17 15:05> Objective - Vital Signs/Intake and Output Vital Signs (last 24 hours): Temp Pulse Resp BP Pulse Ox 98.4 F 94 H 18 143/84 98 07/08/17 07:30 07/08/17 09:20 07/08/17 07:30 07/08/17 09:20 07/08/17 07:30 - Labs Labs: 07/08/17 06:41 07/08/17 06:41 PT 12.8 SECONDS (9.4-12.5) H 07/06/17 07:43 INR 1.16 (0.93-1.08) H 07/06/17 07:43 APTT 28.6 Seconds (25.1-36.5) 07/01/17 19:44 Attending/Attestation - Attestation I have personally seen and examined this patient.: Yes I have fully participated in the care of the patient.: Yes I have reviewed all pertinent clinical information, including history, physical exam and plan: Yes Notes (Text): Pt was seen and examined at bedside Agree with above note and assessment Pt with Cholelithiasis, Chronic Cholecystitis and Dilated CBD EUS wad done today OR for Lap Cholecystectomy tomorrow Consent Plan d.w pt in detail Risk and benefit explained in detail
[2017-07-06 07:58] LABS: INR 1.16 (0.93-1.08)
--- NOTE | 2017-07-06 09:23 | CP.PCM.PN ---
<Gregory Ulrich - Last Filed: 07/06/17 09:31> Subjective - Date & Time of Evaluation Date of Evaluation: 07/06/17 Time of Evaluation: 07:30 - Subjective Subjective: Medicine progress note Patient seen and examined at bedside this morning. Patient had an episode of hypertension systolic greater than 160. Patient was given metoprolol and hypertension has resolved. most recent systolic blood pressure this morning is 140. Patient currently NPO, denies nausea, vomiting, diarrhea, fevers chills, chest pain, shortness of breath. Objective - Vital Signs/Intake and Output Vital Signs (last 24 hours): Temp Pulse Resp BP Pulse Ox 97.8 F 62 18 141/90 99 07/06/17 07:30 07/06/17 07:30 07/06/17 07:30 07/06/17 07:30 07/06/17 07:30 Intake and Output: 07/06/17 07/06/17 06:59 18:59 Intake Total 3180 Balance 3180 - Medications Medications: Current Medications Albuterol Sulfate (Albuterol 0.083% Inhal Yulissa (2.5 Mg/3 Ml) Ud) 2.5 mg IH [id number] PRN PRN Reason: Shortness of Breath Hydromorphone HCl (Dilaudid) 0.5 mg IVP Q4H PRN PRN Reason: Pain, severe (8-10) Dextrose/Sodium Chloride (Dextrose 5%/0.45% Ns 1000 Ml) 1,000 mls @ 100 mls/hr IV .Q10H [facility] Last Admin: 07/06/17 05:05 Dose: 100 mls/hr Ampicillin Sodium/Sulbactam (Sodium 3 gm/ Sodium Chloride) 100 mls @ 200 mls/ hr IVPB Q6 ELI PRN Reason: Protocol Last Admin: 07/06/17 05:46 Dose: 200 mls/hr Losartan Potassium (Cozaar) 25 mg PO BID [facility] Last Admin: 07/05/17 17:30 Dose: 25 mg Ondansetron HCl (Zofran Inj) 4 mg IVP Q4H PRN PRN Reason: Nausea/Vomiting Last Admin: 07/05/17 15:49 Dose: 4 mg Pantoprazole Sodium (Protonix Inj) 40 mg IVP DAILY [facility] Last Admin: 10/30/17 09:18 Dose: 40 mg Polyethylene Glycol (Miralax) 17 gm PO BID [facility] Last Admin: 07/05/17 17:16 Dose: 17 gm - Labs Labs: 07/06/17 06:38 07/06/17 06:38 PT 12.8 SECONDS (9.4-12.5) H 07/06/17 07:43 INR 1.16 (0.93-1.08) H 07/06/17 07:43 APTT 28.6 Seconds (25.1-36.5) 07/01/17 19:44 - Constitutional Appears: Non-toxic, No Acute Distress - Head Exam Head Exam: ATRAUMATIC - Eye Exam Eye Exam: EOMI. absent: Scleral icterus - ENT Exam ENT Exam: Mucous Membranes Moist - Respiratory Exam Respiratory Exam: NORMAL BREATHING PATTERN. absent: Accessory Muscle Use, Respiratory Distress - Cardiovascular Exam Cardiovascular Exam: +S1, +S2. absent: Bradycardia, Tachycardia - GI/Abdominal Exam GI & Abdominal Exam: Guarding, Soft, Tenderness, Normal Bowel Sounds. absent: Distended, Firm, Rigid, Rebound Additional comments: tender to palpation in mid-epigastrum and RUQ. negative murphys sign - Extremities Exam Extremities Exam: Normal Inspection. absent: Calf Tenderness - Back Exam Back Exam: NORMAL INSPECTION - Neurological Exam Neurological Exam: Alert, Awake, Oriented x3 - Psychiatric Exam Psychiatric exam: Normal Affect, Normal Mood - Skin Skin Exam: Normal Color, Warm Assessment and Plan - Assessment and Plan (Free Text) Assessment: 56F pmhx of hypertension and diabetes who presented with complaint of RUQ pain and low back pain. Abdominal ultrasound showed cholelithiasis and mild biliary ductal dilatation. MRCP showed extensive gallstones, mild dilated CBD and no evidence of cholelithiasis. GI and Surgery following. Plan is for EUS +/- ERCP today. NPO. Cholelithiasis/mid-epigastric RUQ abd pain Abdominal u/s done in the emergency department showed chelelithiasis and mild biliary ductal dilatation and to consider non-emergent MRCP. MRCP extensive gallstones, no evidence of cholecystitis, CBD 6.9 mm Lumbar MRI showed degenerative L5-S1 GI Consulted EUS +/- ERCP today (wednesday Surgery Consulted possible Cholecystectomy tomorrow post EUS/ERCP I/V abx Unasyn 3 gm IVPB q6h IVF D5W 100 ml/hr Pain management Hypertension Home med: Cozaar Hydralazine PRN Continue to monitor Diabetes home meds held ISS Accu checks ACHS GI/DVT ppx PTX SCD's <LeenaDonald zapienramin - Last Filed: 07/06/17 10:15> Objective - Vital Signs/Intake and Output Vital Signs (last 24 hours): Temp Pulse Resp BP Pulse Ox 97.8 F 62 18 140/90 99 07/06/17 07:30 07/06/17 09:43 07/06/17 07:30 07/06/17 09:43 07/06/17 07:30 Intake and Output: 07/06/17 07/06/17 06:59 18:59 Intake Total 3180 Balance 3180 - Medications Medications: Current Medications Albuterol Sulfate (Albuterol 0.083% Inhal Yulissa (2.5 Mg/3 Ml) Ud) 2.5 mg IH [id number] PRN PRN Reason: Shortness of Breath Hydralazine HCl (Apresoline) 10 mg PO QID PRN PRN Reason: hypertension Hydromorphone HCl (Dilaudid) 0.5 mg IVP Q4H PRN PRN Reason: Pain, severe (8-10) Last Admin: 07/06/17 09:46 Dose: 0.5 mg Dextrose/Sodium Chloride (Dextrose 5%/0.45% Ns 1000 Ml) 1,000 mls @ 100 mls/hr IV .Q10H [facility] Last Admin: 07/06/17 05:05 Dose: 100 mls/hr Ampicillin Sodium/Sulbactam (Sodium 3 gm/ Sodium Chloride) 100 mls @ 200 mls/ hr IVPB Q6 ELI PRN Reason: Protocol Last Admin: 07/06/17 05:46 Dose: 200 mls/hr Losartan Potassium (Cozaar) 25 mg PO BID [facility] Last Admin: 07/06/17 09:43 Dose: 25 mg Ondansetron HCl (Zofran Inj) 4 mg IVP Q4H PRN PRN Reason: Nausea/Vomiting Last Admin: 07/06/17 09:46 Dose: 4 mg Pantoprazole Sodium (Protonix Inj) 40 mg IVP DAILY [facility] Last Admin: 07/06/17 09:44 Dose: 40 mg Polyethylene Glycol (Miralax) 17 gm PO BID [facility] Last Admin: 07/06/17 09:47 Dose: Not Given - Labs Labs: 07/06/17 06:38 07/06/17 06:38 PT 12.8 SECONDS (9.4-12.5) H 07/06/17 07:43 INR 1.16 (0.93-1.08) H 07/06/17 07:43 APTT 28.6 Seconds (25.1-36.5) 07/01/17 19:44 Attending/Attestation - Attestation I have personally seen and examined this patient.: Yes I have fully participated in the care of the patient.: Yes I have reviewed all pertinent clinical information, including history, physical exam and plan: Yes Notes (Text): 07/06/17 10:14 Patient was seen and examined with medical practice administrator. Agreed with resident assessment and plan. 56 year old female with past medical history of hypertension and diabetes was admitted with RUQ pain and low back pain. Abdominal ultrasound showed cholelithiasis and mild biliary ductal dilatation. MRCP showed extensive gallstones, mild dilated CBD . LFT are stable.Patient is NPO for EUS and ERCP today. Blood pressure is mildly elevated.We will monitor ..Patient is afebrile. GI and surgery are following. Management plan was discussed in detail with patient Education was provided.
[2017-07-06] MEDS: HYDROmorphone 0.5 mg/0.5 ml ISec IVP PRN ×2 (09:46→23:39)
[2017-07-06] MEDS: POLYETHYLENE GLYCOL 3350 17 GM/Dose PACKET PO SCH ×2 (09:47→17:50)
[2017-07-06] MEDS ORDERED: Propofol 10 mg/ml Inj (20 ML) ONE ×2 (12:44→13:09)
[2017-07-06] MEDS ORDERED: Midazolam 2 MG/2 ML VIAL ONE (12:49)
[2017-07-06] MEDS: Sodium Chloride 0.9% 1,000 ML IV SCH (16:36)
[2017-07-07 06:20] LABS: BASO # 0.01 K/mm3 (0.0-2.0); BASO % 0.2 % (0.0-3.0); EOS # 0.3 (0.0-0.7); EOS % 5.9 % (1.5-5.0); GRAN # 1.71 (1.4-6.5); HEMATOCRIT 31.5 % (36.0-48.0); LYMPH % 44.9 % (22.0-35.0); MEAN CELL VOLUME 89.2 fl (80.0-105.0); MEAN CORPUSCULAR HEMOGLOBIN 30.6 pg (25.0-35.0); MEAN CORPUSCULAR HGB CONC 34.3 g/dl (31.0-37.0); MEAN PLATELET VOLUME 9.4 fl (7.0-11.0); MONO # 0.4 (0.1-0.6); RED CELL DISTRIBUTION WIDTH 12.1 % (11.5-14.5); WHITE BLOOD COUNT 4.4 10^3/ul (4.5-11.0)
[2017-07-07] MEDS: HYDROmorphone 0.5 mg/0.5 ml ISec IVP PRN ×4 (06:24→21:49)
[2017-07-07 06:53] LABS: ALKALINE PHOSPHATASE 86 U/L (38-126); ALT/SGPT 89 U/L (7-56); AST/SGOT 61 U/L (14-36); BILIRUBIN,TOTAL 0.7 mg/dL (0.2-1.3); BLOOD UREA NITROGEN 5 mg/dL (7-21); CALCIUM 8.8 mg/dL (8.4-10.5); CARBON DIOXIDE 30 mmol/L (21-33); CHLORIDE 105 mmol/L (98-107); GFR AFRICAN-AMERICAN > 60; GLUCOSE,RANDOM 128 mg/dL (70-110); POTASSIUM 3.8 mmol/L (3.6-5.0); SODIUM 141 mmol/L (132-148); TOTAL PROTEIN 6.3 g/dL (5.8-8.3)
[2017-07-07] MEDS: POLYETHYLENE GLYCOL 3350 17 GM/Dose PACKET PO SCH ×2 (11:05→19:12)
--- NOTE | 2017-07-07 13:03 | CP.PCM.PN ---
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 ROS: 10 point ROS conducted, neg other than above Objective - Vital Signs/Intake and Output Vital Signs (last 24 hours): Temp Pulse Resp BP Pulse Ox 97.9 F 78 18 142/86 98 07/07/17 07:56 07/07/17 07:56 07/07/17 07:56 07/07/17 07:56 07/07/17 07:56 Intake and Output: 07/07/17 07/07/17 06:59 18:59 Intake Total 1080 Balance 1080 - Medications Medications: Current Medications Albuterol Sulfate (Albuterol 0.083% Inhal Yulissa (2.5 Mg/3 Ml) Ud) 2.5 mg IH [id number] PRN PRN Reason: Shortness of Breath Hydralazine HCl (Apresoline) 10 mg PO QID PRN PRN Reason: hypertension Hydromorphone HCl (Dilaudid) 0.5 mg IVP Q4H PRN PRN Reason: Pain, severe (8-10) Last Admin: 07/07/17 11:25 Dose: 0.5 mg Ampicillin Sodium/Sulbactam (Sodium 3 gm/ Sodium Chloride) 100 mls @ 200 mls/ hr IVPB Q6 ELI PRN Reason: Protocol Last Admin: 07/07/17 06:13 Dose: 200 mls/hr Sodium Chloride (Sodium Chloride 0.9%) 1,000 mls @ 100 mls/hr IV .Q10H [facility] Last Admin: 07/06/17 16:36 Dose: 100 mls/hr Losartan Potassium (Cozaar) 25 mg PO BID [facility] Last Admin: 07/07/17 11:05 Dose: Not Given Ondansetron HCl (Zofran Inj) 4 mg IVP Q4H PRN PRN Reason: Nausea/Vomiting Last Admin: 07/06/17 09:46 Dose: 4 mg Pantoprazole Sodium (Protonix Inj) 40 mg IVP DAILY [facility] Last Admin: 07/07/17 11:04 Dose: 40 mg Polyethylene Glycol (Miralax) 17 gm PO BID [facility] Last Admin: 07/07/17 11:05 Dose: Not Given - Labs Labs: 07/07/17 05:30 07/07/17 05:30 PT 12.8 SECONDS (9.4-12.5) H 07/06/17 07:43 INR 1.16 (0.93-1.08) H 07/06/17 07:43 APTT 28.6 Seconds (25.1-36.5) 07/01/17 19:44 - Constitutional Appears: Non-toxic, No Acute Distress - Head Exam Head Exam: ATRAUMATIC, NORMOCEPHALIC - Eye Exam Eye Exam: Normal appearance - ENT Exam ENT Exam: Mucous Membranes Moist - Respiratory Exam Respiratory Exam: Clear to Ausculation Bilateral, NORMAL BREATHING PATTERN. absent: Rales, Rhonchi, Wheezes, Respiratory Distress - Cardiovascular Exam Cardiovascular Exam: REGULAR RHYTHM, +S1, +S2 - GI/Abdominal Exam GI & Abdominal Exam: Tenderness, Normal Bowel Sounds. absent: Guarding, Rigid, Organomegaly - Extremities Exam Extremities Exam: absent: Joint Swelling, Pedal Edema - Neurological Exam Neurological Exam: Alert, Awake, Oriented x3 - Psychiatric Exam Psychiatric exam: Normal Affect, Normal Mood - Skin Skin Exam: Dry, Intact, Normal Color, Warm Assessment and Plan - Assessment and Plan (Free Text) Assessment: 56 year old female with history of Hypertension, Diabetes, PUD, and cholelithiasis presenting with abdominal pain. Active treatment of symptomatic cholelithiasis with elevated transaminases. Prior EGD/colonoscopy 8 years ago with PUD, Gastritis, and colon polyp. s/p EUS which revealed no CBD stone and mild dilation of CBD with large GB stones Cholelithiasis Dilated CBD Plan: -to get lap liam today -continue NPO -rest of plan as per surgery -will sign off -no immediate plan for any additional GI procedures D/W Dr. Sibley <Joshua Sibley MD - Last Filed: 07/07/17 19:12> Objective - Vital Signs/Intake and Output Vital Signs (last 24 hours): Temp Pulse Resp BP Pulse Ox 97.8 F 78 14 152/87 H 100 07/07/17 18:00 07/07/17 18:00 07/07/17 18:00 07/07/17 18:00 07/07/17 18:00 Intake and Output: 07/07/17 07/08/17 18:59 06:59 Intake Total 0 Balance 0 - Medications Medications: Current Medications Albuterol Sulfate (Albuterol 0.083% Inhal Yulissa (2.5 Mg/3 Ml) Ud) 2.5 mg IH [id number] PRN PRN Reason: Shortness of Breath Hydralazine HCl (Apresoline) 10 mg PO QID PRN PRN Reason: hypertension Hydromorphone HCl (Dilaudid) 0.5 mg IVP Q4H PRN PRN Reason: Pain, severe (8-10) Last Admin: 07/07/17 11:25 Dose: 0.5 mg Hydromorphone HCl (Dilaudid) 0.5 mg IVP Q15M PRN PRN Reason: Pain, moderate (4-7) Stop: 07/07/17 19:21 Ampicillin Sodium/Sulbactam (Sodium 3 gm/ Sodium Chloride) 100 mls @ 200 mls/ hr IVPB Q6 [facility] PRN Reason: Protocol Last Admin: 07/07/17 13:21 Dose: 200 mls/hr Sodium Chloride (Sodium Chloride 0.9%) 1,000 mls @ 100 mls/hr IV .Q10H [facility] Last Admin: 07/07/17 13:23 Dose: 100 mls/hr Lactated Ringer's (Lactated Ringer's) 1,000 mls @ 75 mls/hr IV .[id number] [facility] Stop: 07/07/17 19:31 Losartan Potassium (Cozaar) 25 mg PO BID [facility] Last Admin: 07/07/17 11:05 Dose: Not Given Ondansetron HCl (Zofran Inj) 4 mg IVP Q4H PRN PRN Reason: Nausea/Vomiting Last Admin: 07/06/17 09:46 Dose: 4 mg Oxycodone/Acetaminophen (Percocet 5/325 Mg Tab) 1 tab PO Q4H PRN PRN Reason: Pain, moderate (4-7) Stop: 07/10/17 17:31 Pantoprazole Sodium (Protonix Inj) 40 mg IVP DAILY [facility] Last Admin: 07/07/17 11:04 Dose: 40 mg Polyethylene Glycol (Miralax) 17 gm PO BID [facility] Last Admin: 07/07/17 11:05 Dose: Not Given - Labs Labs: 07/07/17 05:30 07/07/17 05:30 PT 12.8 SECONDS (9.4-12.5) H 07/06/17 07:43 INR 1.16 (0.93-1.08) H 07/06/17 07:43 APTT 28.6 Seconds (25.1-36.5) 07/01/17 19:44 Attending/Attestation - Attestation I have personally seen and examined this patient.: Yes I have fully participated in the care of the patient.: Yes I have reviewed all pertinent clinical information, including history, physical exam and plan: Yes Notes (Text): 07/07/17 19:10 This is a 56 year old female with history of Hypertension, Diabetes, PUD, and cholelithiasis presenting with abdominal pain in setting of cholecystitis s/p EUS which revealed no CBD stone and mild dilation of CBD with large GB stones. Scheduled for lap liam today. Rest of plan as per surgery team. Thank you for letting us participate in the care of your patient
[2017-07-07] MEDS: Sodium Chloride 0.9% 1,000 ML IV SCH ×2 (13:23→19:12)
--- NOTE | 2017-07-07 13:53 | CP.PCM.PN ---
<Wilfrido Art - Last Filed: 07/07/17 14:09> Subjective - Date & Time of Evaluation Date of Evaluation: 07/07/17 Time of Evaluation: 07:30 - Subjective Subjective: Patient seen and examined. No acute events overnight. Patient c/o abdominal pain from right sided flank to RUQ. Over past 24 hours patient had EUS. Patient is scheduled for cholecystecomy today. patient denies chest pain, shortness of breath, nausea, vomiting, fever, chills or change in bowel habit. Objective - Vital Signs/Intake and Output Vital Signs (last 24 hours): Temp Pulse Resp BP Pulse Ox 97.9 F 78 18 142/86 98 07/07/17 07:56 07/07/17 07:56 07/07/17 07:56 07/07/17 07:56 07/07/17 07:56 Intake and Output: 07/07/17 07/07/17 06:59 18:59 Intake Total 1080 Balance 1080 - Medications Medications: Current Medications Albuterol Sulfate (Albuterol 0.083% Inhal Yulissa (2.5 Mg/3 Ml) Ud) 2.5 mg IH U4NPORT PRN PRN Reason: Shortness of Breath Hydralazine HCl (Apresoline) 10 mg PO QID PRN PRN Reason: hypertension Hydromorphone HCl (Dilaudid) 0.5 mg IVP Q4H PRN PRN Reason: Pain, severe (8-10) Last Admin: 07/07/17 11:25 Dose: 0.5 mg Ampicillin Sodium/Sulbactam (Sodium 3 gm/ Sodium Chloride) 100 mls @ 200 mls/ hr IVPB Q6 ELI PRN Reason: Protocol Last Admin: 07/07/17 13:21 Dose: 200 mls/hr Sodium Chloride (Sodium Chloride 0.9%) 1,000 mls @ 100 mls/hr IV .Q10H COUNTS INCLUDE 234 BEDS AT THE [facility] Last Admin: 07/07/17 13:23 Dose: 100 mls/hr Losartan Potassium (Cozaar) 25 mg PO BID COUNTS INCLUDE 234 BEDS AT THE [facility] Last Admin: 07/07/17 11:05 Dose: Not Given Ondansetron HCl (Zofran Inj) 4 mg IVP Q4H PRN PRN Reason: Nausea/Vomiting Last Admin: 07/06/17 09:46 Dose: 4 mg Pantoprazole Sodium (Protonix Inj) 40 mg IVP DAILY COUNTS INCLUDE 234 BEDS AT THE [facility] Last Admin: 07/07/17 11:04 Dose: 40 mg Polyethylene Glycol (Miralax) 17 gm PO BID COUNTS INCLUDE 234 BEDS AT THE [facility] Last Admin: 07/07/17 11:05 Dose: Not Given - Labs Labs: 07/07/17 05:30 07/07/17 05:30 PT 12.8 SECONDS (9.4-12.5) H 07/06/17 07:43 INR 1.16 (0.93-1.08) H 07/06/17 07:43 APTT 28.6 Seconds (25.1-36.5) 07/01/17 19:44 - Constitutional Appears: Well, No Acute Distress - Head Exam Head Exam: ATRAUMATIC, NORMAL INSPECTION, NORMOCEPHALIC - Eye Exam Eye Exam: EOMI, PERRL - ENT Exam ENT Exam: Mucous Membranes Moist - Neck Exam Neck Exam: Full ROM, Normal Inspection - Respiratory Exam Respiratory Exam: Clear to Ausculation Bilateral, NORMAL BREATHING PATTERN - Cardiovascular Exam Cardiovascular Exam: REGULAR RHYTHM, +S1, +S2 - GI/Abdominal Exam GI & Abdominal Exam: Distended, Soft, Tenderness (RUQ, mid epigastric), Normal Bowel Sounds - Extremities Exam Extremities Exam: Full ROM - Back Exam Back Exam: NORMAL INSPECTION - Neurological Exam Neurological Exam: Alert, Awake, CN II-XII Intact, Normal Gait, Oriented x3 - Psychiatric Exam Psychiatric exam: Normal Affect, Normal Mood - Skin Skin Exam: Dry, Normal Color Assessment and Plan (1) Biliary colic Status: Acute - Assessment and Plan (Free Text) Assessment: 56F pmhx of hypertension and diabetes who presented with complaint of RUQ pain and low back pain. Abdominal ultrasound showed cholelithiasis and mild biliary ductal dilatation. MRCP showed extensive gallstones, mild dilated CBD and no evidence of cholelithiasis. GI and Surgery following. Plan is for cholecystectomy today with surgery. Plan: Cholelithiasis/mid-epigastric RUQ abd pain -Abdominal u/s done in the emergency department showed chelelithiasis and mild biliary ductal dilatation and to consider non-emergent MRCP. -MRCP extensive gallstones, no evidence of cholecystitis, CBD 6.9 mm -Lumbar MRI showed degenerative L5-S1 - Hepatitis panel negative -GI Consulted -EUS +/- ERCP yesterday showing CBD of 7mm, gallstones noted -Surgery Consulted - possible Cholecystectomy today - IVF NS 100 ml/hr - Pain management Hypertension - Home med: Cozaar - Hydralazine PRN - Continue to monitor Transaminitis - Likely secondary to biliary colic - Total bilirubin normal - AST and ALT trending downward - Continue to monitor Diabetes - home meds held - ISS - Accu checks ACHS GI/DVT ppx PTX SCD's Case and plan reviewed and agreed upon with attending <Lobo Keenan - Last Filed: 07/07/17 18:34> Objective - Vital Signs/Intake and Output Vital Signs (last 24 hours): Temp Pulse Resp BP Pulse Ox 97.8 F 78 14 152/87 H 100 07/07/17 18:00 07/07/17 18:00 07/07/17 18:00 07/07/17 18:00 07/07/17 18:00 Intake and Output: 07/07/17 07/07/17 06:59 18:59 Intake Total 1080 0 Balance 1080 0 - Medications Medications: Current Medications Albuterol Sulfate (Albuterol 0.083% Inhal Yulissa (2.5 Mg/3 Ml) Ud) 2.5 mg IH [id number] PRN PRN Reason: Shortness of Breath Hydralazine HCl (Apresoline) 10 mg PO QID PRN PRN Reason: hypertension Hydromorphone HCl (Dilaudid) 0.5 mg IVP Q4H PRN PRN Reason: Pain, severe (8-10) Last Admin: 07/07/17 11:25 Dose: 0.5 mg Hydromorphone HCl (Dilaudid) 0.5 mg IVP Q15M PRN PRN Reason: Pain, moderate (4-7) Stop: 07/07/17 19:21 Ampicillin Sodium/Sulbactam (Sodium 3 gm/ Sodium Chloride) 100 mls @ 200 mls/ hr IVPB Q6 ELI PRN Reason: Protocol Last Admin: 07/07/17 13:21 Dose: 200 mls/hr Sodium Chloride (Sodium Chloride 0.9%) 1,000 mls @ 100 mls/hr IV .Q10H ELI Last Admin: 07/07/17 13:23 Dose: 100 mls/hr Lactated Ringer's (Lactated Ringer's) 1,000 mls @ 75 mls/hr IV .[id number] COUNTS INCLUDE 234 BEDS AT THE [facility] Stop: 07/07/17 19:31 Losartan Potassium (Cozaar) 25 mg PO BID COUNTS INCLUDE 234 BEDS AT THE [facility] Last Admin: 07/07/17 11:05 Dose: Not Given Ondansetron HCl (Zofran Inj) 4 mg IVP Q4H PRN PRN Reason: Nausea/Vomiting Last Admin: 07/06/17 09:46 Dose: 4 mg Oxycodone/Acetaminophen (Percocet 5/325 Mg Tab) 1 tab PO Q4H PRN PRN Reason: Pain, moderate (4-7) Stop: 07/10/17 17:31 Pantoprazole Sodium (Protonix Inj) 40 mg IVP DAILY COUNTS INCLUDE 234 BEDS AT THE [facility] Last Admin: 07/07/17 11:04 Dose: 40 mg Polyethylene Glycol (Miralax) 17 gm PO BID COUNTS INCLUDE 234 BEDS AT THE [facility] Last Admin: 07/07/17 11:05 Dose: Not Given - Labs Labs: 07/07/17 05:30 07/07/17 05:30 PT 12.8 SECONDS (9.4-12.5) H 07/06/17 07:43 INR 1.16 (0.93-1.08) H 07/06/17 07:43 APTT 28.6 Seconds (25.1-36.5) 07/01/17 19:44 Attending/Attestation - Attestation I have personally seen and examined this patient.: Yes I have fully participated in the care of the patient.: Yes I have reviewed all pertinent clinical information, including history, physical exam and plan: Yes Notes (Text): 07/07/17 18:32 Patient was seen and examined with lead medical technologist. Agreed with resident assessment and plan. 56 year old female with past medical history of hypertension and diabetes was admitted with RUQ pain and low back pain. Abdominal ultrasound showed cholelithiasis and mild biliary ductal dilatation. MRCP showed extensive gallstones, mild dilated CBD . LFT are stable.Patient underwent EUS yesterday which showed gallstone and mid dilatation of CBD..She is scheduled for cholycystectomy today. Management plan was discussed in detail with patient Education was provided. 07/07/17 18:34
[2017-07-07] MEDS ORDERED: Lidocaine 1% w Epi 1:100,000 Inj ONE (13:54)
[2017-07-07] MEDS ORDERED: Bupivacaine 0.5% Inj(30mL) ONE (13:54)
[2017-07-07] MEDS ORDERED: Propofol 10 mg/ml Inj (20 ML) ONE (14:57)
[2017-07-07] MEDS ORDERED: Midazolam 2 MG/2 ML VIAL ONE (14:57)
[2017-07-07] MEDS ORDERED: Rocuronium 10 mg/ml (5 ml) ONE (14:57)
[2017-07-07] MEDS ORDERED: Phenylephrine 10 mg/ml Inj ONE (15:02)
[2017-07-07] MEDS ORDERED: Metoprolol 1 mg/ml Inj IVP ONE (15:49)
[2017-07-07] MEDS ORDERED: Neostigmine Methylsulfate 3mg/3ml Syringe IV ONE (16:39)
[2017-07-07] MEDS ORDERED: HYDROmorphone 0.5 mg/0.5 ml ISec IVP PRN (17:21)
[2017-07-07] MEDS ORDERED: Lactated Ringer's 1,000 ML IV SCH (17:30)
[2017-07-07] MEDS ORDERED: Oxycodone/Acetaminophen 5/325 mg Tab PO PRN (17:30)
--- NOTE | 2017-07-07 17:36 | PCM.SURG1 ---
Surgeon's Initial Post Op Note - Surgeon's Notes Surgeon: Dr. Sharma Transplant Registered Nurse: Dr. Curran PGY3; Ly GAN III Type of Anesthesia: General Endo Anesthesia Administered By: Norma Pre-Operative Diagnosis: Cholelithiasis/cholecystitis Operative Findings: same Post-Operative Diagnosis: same Operation Performed: Laparoscopic Cholecystectomy Specimen/Specimens Removed: gallbladder Estimated Blood Loss: EBL {In ML}: 10 Blood Products Given: N/A Drains Used: No Drains Post-Op Condition: Good Date of Surgery/Procedure: 07/07/17 Time of Surgery/Procedure: 17:36
--- NOTE | 2017-07-08 02:09 | OP ---
PROCEDURE DATE: 07/07/2017 PREOPERATIVE DIAGNOSES: 1. Chronic cholecystitis and cholelithiasis. 2. Dilated common bile duct, status post EUS. POSTOPERATIVE DIAGNOSES: 1. Chronic cholecystitis and cholelithiasis. 2. Dilated common bile duct, status post EUS. 3. Extensive post infectious adhesions between the gallbladder and duodenum, gallbladder to the omentum and the colon. PROCEDURES DONE: 1. Laparoscopic cholecystectomy. 2. Laparoscopic extensive lysis of adhesion. SURGEON: Umesh Sharma MD. CERAMIC TILE INSTALLATION HELPER: Ashley Curran, PGY-3 resident. TYPE OF ANESTHESIA: General endotracheal tube anesthesia. ESTIMATED BLOOD LOSS: EBL is around 20 mL. DRAINS: None. PATHOLOGY: Gallbladder with gallstones was sent for the pathology. COMPLICATIONS: None. INTRAOPERATIVE FINDINGS: The patient had extensive post infectious adhesion, and patient also had multiple gallstones and patient also had a dilated common bile duct. INTRAOPERATIVE STEPS: This is a 56-year-old female who was diagnosed with chronic cholecystitis and cholelithiasis and patient also had a dilated common bile duct, and the patient underwent MRCP and EUS. After proper evaluation of the common bile duct, patient was consented for laparoscopic cholecystectomy, possible open, brought to the OR, placed supine on the operating table. DESCRIPTION OF PROCEDURE: After induction of the anesthesia, abdomen was prepped and draped in the usual sterile fashion. An incision was made through the previous scar of lower umbilical transverse incision for appendectomy. After incising skin, subcutaneous tissue and the fascia, Cam port was placed, Pneumo was created. Another 12-mm port was placed in midline below the episternum and two 5-mm ports were placed in the midclavicular and anterior axillary line. After that, gallbladder was identified and gallbladder appeared to be attached to the omentum and the surrounding structures. With blunt and sharp dissection, a lysis of adhesion was done. The duodenum was also found to be attached to the Calot's Roosevelt and Calot's Roosevelt dissection was done to do the lysis of adhesion. Now the gallbladder was retracted cranially and the Calot's Roosevelt was dissected, and the cystic duct and cystic artery were identified. Patient was found to have extensive postoperative adhesion due to tortous and dilated cystic duct. The common bile duct was also identified and cystic artery was identified. The critical view of the safety was also identified, and after that, cystic duct and cystic artery were clipped at 3 places and cut in between 2 clips nearby gallbladder, and gallbladder was dissected free from the gallbladder fossa and placed in an EndoCatch bag, taken out through the umbilical port site and sent off the table for the pathology. There was proper hemostasis in each and every part of the procedure. All the ports were taken out under vision. Pneumo was deflated. Umbilical port site was closed in two layers, the fascia with 0 Vicryl interrupted sutures, skin with a 4-0 Monocryl, and dry sterile dressing was applied. The patient tolerated the procedure well. Count of the instrument was correct. There was no apparent complication. Umesh Sharma MD
[2017-07-08] MEDS: Sodium Chloride 0.9% 1,000 ML IV SCH (05:58)
[2017-07-08 06:50] LABS: BASO # 0.02 K/mm3 (0.0-2.0); BASO % 0.4 % (0.0-3.0); EOS # 0.1 (0.0-0.7); GRAN # 2.97 (1.4-6.5); GRAN % 59.7 % (50.0-68.0); HEMATOCRIT 32.7 % (36.0-48.0); LYMPH # 1.5 (1.2-3.4); LYMPH % 30.2 % (22.0-35.0); MEAN CELL VOLUME 88.6 fl (80.0-105.0); MEAN CORPUSCULAR HEMOGLOBIN 30.4 pg (25.0-35.0); MEAN CORPUSCULAR HGB CONC 34.3 g/dl (31.0-37.0); MEAN PLATELET VOLUME 8.9 fl (7.0-11.0); MONO # 0.4 (0.1-0.6); MONO % 8.7 % (1.0-6.0); RED CELL DISTRIBUTION WIDTH 12.1 % (11.5-14.5)
[2017-07-08 07:17] LABS: ALB/GLOB RATIO 1.1 (1.1-1.8); ALKALINE PHOSPHATASE 96 U/L (38-126); ALT/SGPT 98 U/L (7-56); AST/SGOT 77 U/L (14-36); BILIRUBIN,TOTAL 0.9 mg/dL (0.2-1.3); BLOOD UREA NITROGEN 6 mg/dL (7-21); CALCIUM 8.9 mg/dL (8.4-10.5); CARBON DIOXIDE 29 mmol/L (21-33); CHLORIDE 104 mmol/L (98-107); GFR AFRICAN-AMERICAN > 60; GLUCOSE,RANDOM 105 mg/dL (70-110); POTASSIUM 4.5 mmol/L (3.6-5.0); SODIUM 143 mmol/L (132-148); TOTAL PROTEIN 6.7 g/dL (5.8-8.3)
[2017-07-08 08:33] VITALS: PULSE 94; RESP 18; TEMP 98.4; O2SAT 98
--- NOTE | 2017-07-08 09:13 | CP.PCM.PN ---
<CurranShaina tellez - Last Filed: 07/08/17 09:09> Subjective - Date & Time of Evaluation Date of Evaluation: 07/08/17 Time of Evaluation: 09:09 - Subjective Subjective: General Surgery - Dr. Sharma Pt S&ERina WARNER. Pt states her pain is mild and has been controlled. She is drinking water and voiding on her own, has not eaten anything yet. She denies any N/V, F/C, SOb/Cp. Objective - Vital Signs/Intake and Output Vital Signs (last 24 hours): Temp Pulse Resp BP Pulse Ox 98.4 F 94 H 18 142/84 98 07/08/17 07:30 07/08/17 07:30 07/08/17 07:30 07/08/17 07:30 07/08/17 07:30 Intake and Output: 07/08/17 07/08/17 06:59 18:59 Intake Total 1440 Balance 1440 - Medications Medications: Current Medications Albuterol Sulfate (Albuterol 0.083% Inhal Yulissa (2.5 Mg/3 Ml) Ud) 2.5 mg IH [id number] PRN PRN Reason: Shortness of Breath Hydralazine HCl (Apresoline) 10 mg PO QID PRN PRN Reason: hypertension Ampicillin Sodium/Sulbactam (Sodium 3 gm/ Sodium Chloride) 100 mls @ 200 mls/ hr IVPB Q6 ELI PRN Reason: Protocol Last Admin: 07/08/17 05:59 Dose: 200 mls/hr Sodium Chloride (Sodium Chloride 0.9%) 1,000 mls @ 100 mls/hr IV .Q10H ELI Last Admin: 07/08/17 05:58 Dose: 100 mls/hr Losartan Potassium (Cozaar) 25 mg PO BID ELI Last Admin: 07/07/17 19:11 Dose: 25 mg Ondansetron HCl (Zofran Inj) 4 mg IVP Q4H PRN PRN Reason: Nausea/Vomiting Last Admin: 07/06/17 09:46 Dose: 4 mg Oxycodone/Acetaminophen (Percocet 5/325 Mg Tab) 1 tab PO Q4H PRN PRN Reason: Pain, moderate (4-7) Stop: 07/10/17 17:31 Pantoprazole Sodium (Protonix Inj) 40 mg IVP DAILY [facility] Last Admin: 07/07/17 11:04 Dose: 40 mg Polyethylene Glycol (Miralax) 17 gm PO BID [facility] Last Admin: 07/07/17 19:12 Dose: Not Given - Labs Labs: 07/08/17 06:41 07/08/17 06:41 PT 12.8 SECONDS (9.4-12.5) H 07/06/17 07:43 INR 1.16 (0.93-1.08) H 07/06/17 07:43 APTT 28.6 Seconds (25.1-36.5) 07/01/17 19:44 - Constitutional Appears: No Acute Distress - Head Exam Head Exam: ATRAUMATIC, NORMAL INSPECTION, NORMOCEPHALIC - Eye Exam Eye Exam: Normal appearance - ENT Exam ENT Exam: Mucous Membranes Moist - Respiratory Exam Respiratory Exam: NORMAL BREATHING PATTERN. absent: Respiratory Distress - GI/Abdominal Exam GI & Abdominal Exam: Soft. absent: Distended, Guarding, Tenderness, Rebound Additional comments: dressings C/D/I - Neurological Exam Neurological Exam: Alert, Oriented x3 - Psychiatric Exam Psychiatric exam: Normal Affect, Normal Mood - Skin Skin Exam: Dry, Intact Assessment and Plan - Assessment and Plan (Free Text) Assessment: 56 yo F s/p Lap cholecystectomy POD #1 -Doing well post-operatively -PO pain control -Regular diet -If tolerating regular diet pt is clear for discharge home from surgical standpoint -F/U with Dr. Sharma in office in 1 week. No heavy lifting >10lbs for 4weeks. Pt may remove bandages tomorrow, leave steri-strips in place. Take percocet as needed for pain DW Dr. Edith Curran PGY3 <Umesh Sharma B - Last Filed: 07/11/17 15:08> Objective - Vital Signs/Intake and Output Vital Signs (last 24 hours): Temp Pulse Resp BP Pulse Ox 98.4 F 94 H 18 143/84 98 07/08/17 07:30 07/08/17 09:20 07/08/17 07:30 07/08/17 09:20 07/08/17 07:30 - Labs Labs: 07/08/17 06:41 07/08/17 06:41 PT 12.8 SECONDS (9.4-12.5) H 07/06/17 07:43 INR 1.16 (0.93-1.08) H 07/06/17 07:43 APTT 28.6 Seconds (25.1-36.5) 07/01/17 19:44 Attending/Attestation - Attestation I have personally seen and examined this patient.: Yes I have fully participated in the care of the patient.: Yes I have reviewed all pertinent clinical information, including history, physical exam and plan: Yes Notes (Text): Pt was seen and examined at bedside Agree with above note and assessment
[2017-07-08] MEDS: POLYETHYLENE GLYCOL 3350 17 GM/Dose PACKET PO SCH (09:21)
[2017-07-08 09:23] VITALS: BP 143/84
[2017-07-08] MEDS ORDERED: Influenza Vaccine 60 mcg/0.5 mL SYR (4YR UP) IM ONE (10:41)
--- NOTE | 2017-07-08 13:24 | CP.PCM.DIS ---
<Wilfrido Art - Last Filed: 07/08/17 13:20> Provider - Provider Date of Admission: 07/01/17 20:51 Attending physician: Jarek Worley MD Primary care physician: None Advised [facility] [place] [facility] Consults: Gastroenterology: Dr. Weaver General Surgery: Dr. Donnelly Time Spent in preparation of Discharge (in minutes): 35 Diagnosis - Discharge Diagnosis (1) Biliary colic Status: Acute Hospital Course - Lab Results Lab Results: Most Recent Lab Values WBC 5.0 10^3/ul (4.5-11.0) 07/08/17 06:41 RBC 3.69 10^6/uL (3.5-6.1) 07/08/17 06:41 Hgb 11.2 g/dL (12.0-16.0) L 07/08/17 06:41 Hct 32.7 % (36.0-48.0) L 07/08/17 06:41 MCV 88.6 fl (80.0-105.0) 07/08/17 06:41 MCH 30.4 pg (25.0-35.0) 07/08/17 06:41 MCHC 34.3 g/dl (31.0-37.0) 07/08/17 06:41 RDW 12.1 % (11.5-14.5) 07/08/17 06:41 Plt Count 186 10^3/uL (120.0-450.0) 07/08/17 06:41 MPV 8.9 fl (7.0-11.0) 07/08/17 06:41 Gran % 59.7 % (50.0-68.0) 07/08/17 06:41 Lymph % (Auto) 30.2 % (22.0-35.0) 07/08/17 06:41 [place] % (Auto) 8.7 % (1.0-6.0) H 07/08/17 06:41 Eos % (Auto) 1.0 % (1.5-5.0) L 07/08/17 06:41 Baso % (Auto) 0.4 % (0.0-3.0) 07/08/17 06:41 Gran # 2.97 (1.4-6.5) 07/08/17 06:41 Lymph # 1.5 (1.2-3.4) 07/08/17 06:41 [place] # 0.4 (0.1-0.6) 07/08/17 06:41 Eos # 0.1 (0.0-0.7) 07/08/17 06:41 Baso # 0.02 K/mm3 (0.0-2.0) 07/08/17 06:41 PT 12.8 SECONDS (9.4-12.5) H 07/06/17 07:43 INR 1.16 (0.93-1.08) H 07/06/17 07:43 APTT 28.6 Seconds (25.1-36.5) 07/01/17 19:44 pO2 40 mm/Hg (30-55) 07/01/17 19:44 VBG pH 7.35 (7.32-7.43) 07/01/17 19:44 VBG pCO2 60.0 (40-60) 07/01/17 19:44 VBG HCO3 33.1 mmol/l (21-28) H 07/01/17 19:44 VBG Total CO2 34.9 mmol.L (22-28) H 07/01/17 19:44 VBG O2 Sat (Calc) 79.9 % (40-65) H 07/01/17 19:44 VBG Base Excess 5.6 mmol/L (0.0-2.0) H 07/01/17 19:44 VBG Potassium 4.2 mmol/L (3.6-5.2) 07/01/17 19:44 Sodium 137.0 mmol/L (132-148) 07/01/17 19:44 Chloride 100.0 mmol/L (98-107) 07/01/17 19:44 Glucose 260 mg/dl (65-105) H 07/01/17 19:44 Lactate 1.2 mmol/L (0.7-2.1) 07/01/17 19:44 FiO2 21.0 % 07/01/17 19:44 Sodium 143 mmol/L (132-148) 07/08/17 06:41 Potassium 4.5 mmol/L (3.6-5.0) 07/08/17 06:41 Chloride 104 mmol/L (98-107) 07/08/17 06:41 Carbon Dioxide 29 mmol/L (21-33) 07/08/17 06:41 Anion Gap 15 (10-20) 07/08/17 06:41 BUN 6 mg/dL (7-21) L 07/08/17 06:41 Creatinine 0.7 mg/dL (0.7-1.2) 07/08/17 06:41 Est GFR ( Amer) > 60 07/08/17 06:41 Est GFR (Non-Af Amer) > 60 07/08/17 06:41 POC Glucose (mg/dL) 166 mg/dL (65-110) H 07/08/17 11:11 Random Glucose 105 mg/dL (70-110) 07/08/17 06:41 Calcium 8.9 mg/dL (8.4-10.5) 07/08/17 06:41 Phosphorus 4.1 mg/dL (2.5-4.5) 07/05/17 10:15 Magnesium 1.8 mg/dL (1.7-2.2) 07/05/17 10:15 Total Bilirubin 0.9 mg/dL (0.2-1.3) 07/08/17 06:41 AST 77 U/L (14-36) H D 07/08/17 06:41 ALT 98 U/L (7-56) H 07/08/17 06:41 Alkaline Phosphatase 96 U/L (38-126) 07/08/17 06:41 Lactate Dehydrogenase 547 U/L (333-699) 07/01/17 19:44 Total Creatine Kinase 71 U/L (35-230) 07/01/17 19:44 Troponin I < 0.01 ng/mL 07/01/17 19:44 Total Protein 6.7 g/dL (5.8-8.3) 07/08/17 06:41 Albumin 3.5 g/dL (3.0-4.8) 07/08/17 06:41 Globulin 3.2 gm/dL 07/08/17 06:41 Albumin/Globulin Ratio 1.1 (1.1-1.8) 07/08/17 06:41 Lipase 153 U/L (23-300) 07/01/17 19:44 Venous Blood Potassium 4.2 mmol/L (3.6-5.2) 07/01/17 19:44 Urine Color Yellow (YELLOW) 07/01/17 20:45 Urine Appearance Clear (CLEAR) 07/01/17 20:45 Urine pH 6.0 (4.7-8.0) 07/01/17 20:45 Ur Specific [place] >= 1.030 (1.005-1.035) 07/01/17 20:45 Urine Protein 100 mg/dL (<30 mg/dL) H 07/01/17 20:45 Urine Glucose (UA) >=1000 mg/dL (NEGATIVE) 07/01/17 20:45 Urine Ketones Trace mg/dL (NEGATIVE) H 07/01/17 20:45 Urine Blood Negative (NEGATIVE) 07/01/17 20:45 Urine Nitrate Negative (NEGATIVE) 07/01/17 20:45 Urine Bilirubin Negative (NEGATIVE) 07/01/17 20:45 Urine Urobilinogen 0.2 E.U./dL (<1 E.U./dL) 07/01/17 20:45 Ur Leukocyte Esterase Negative Leonel/uL (NEGATIVE) 07/01/17 20:45 Urine RBC 0 - 2 /hpf (0-2) 07/01/17 20:45 Urine WBC 1 - 3 /hpf (0-6) 07/01/17 20:45 Ur Epithelial Cells 6 - 8 /hpf (0-5) 07/01/17 20:45 Amorphous Sediment Few 07/01/17 20:45 Urine Bacteria Many (NEG) 07/01/17 20:45 Urine Other Uyeast 07/01/17 20:45 Hepatitis A IgM Ab Negative (NEGATIVE) 07/02/17 08:13 Hep Bs Antigen Negative (NEGATIVE) 07/02/17 08:13 Hep B Core IgM Ab Negative (NEGATIVE) 07/02/17 08:13 Hepatitis C Antibody Negative (NEGATIVE) 07/02/17 08:13 - Hospital Course Hospital Course: This is a 56 year old female with a past medical history of hypertension, diabetes, and gastritis who presented with right lower back pain and RUQ for a history of three days. On admission patient noted to have a gallbladder ultrasound positive for gallstones and mildly dilated biliary duct. Gastroenterology was consulted and evaluated the patient to have cholelithiasis and MRCP showing dialated CBD. Patient then went for EUS/ERCP followed by cholecystectomy with general surgery. Karla had cholecystectomy preformed on 07/07/2017 with additional lysing of adhesions surrounding gallbladder. Patient was observed overnight and found to be hemodynamically stable and able to tolerate diet. Patient was approved for discharge by general surgery team. Patient was educated and advised on appropriate follow up for her care and she was agreeable. Notable testing and procedure below MRCP(07/02/2017): Extensive gallstones. no evidence of acute cholecystitis, minimal dilatation of CBD at 6.9mm, normal pancreatic duct, no evidence of pancreatitis MRI spine(07/02/2017): Degenerative disc disease at L5-S1 EUS/ERCP: Z line regular, diffuse moderate inflammation characterized by erythema awas found in the cardia, in the gastric fundus, in the gastric body and in the gastric antrum, dilation of CBD up to 7mm, fe stones visulaized in gallbladder, noted to be triangular and hyperechoic and characterized by shadowing. - Date & Time of H&P Date of H&P: 07/02/17 Time of H&P: 03:11 Discharge Exam - Head Exam Head Exam: ATRAUMATIC, NORMAL INSPECTION, NORMOCEPHALIC - Eye Exam Eye Exam: EOMI, PERRL - Respiratory Exam Respiratory Exam: Clear to PA & Lateral, NORMAL BREATHING PATTERN - Cardiovascular Exam Cardiovascular Exam: REGULAR RHYTHM, +S1, +S2 - GI/Abdominal Exam GI & Abdominal Exam: Normal Bowel Sounds, Soft, Tenderness (diffuse). absent: Firm, Guarding - Extremities Exam Extremities exam: full ROM, normal inspection - Back Exam Back exam: NORMAL INSPECTION - Neurological Exam Neurological exam: Alert, CN II-XII Intact, Normal Gait, Oriented x3 - Psychiatric Exam Psychiatric exam: Normal Affect, Normal Mood - Skin Skin Exam: Dry, Intact, Normal Color, Warm Discharge Plan - Discharge Medications Prescriptions: Docusate Sodium [Colace] 100 mg PO BID PRN 10 Days #20 capsule PRN Reason: Constipation Ondansetron HCl [Zofran] 4 mg PO Q6 14 Days tablet oxyCODONE/Acetaminophen [Percocet 5/325 mg Tab] 1 tab PO Q6 PRN #20 tab PRN Reason: Pain, Moderate (4-7) - Follow Up Plan Condition: FAIR Disposition: HOME/ ROUTINE Instructions: Gallstones (DC), Pneumococcal Vaccine for Adults (GEN), Low Fat Diet (DC), Diabetes Mellitus Type 2 in Adults (GEN), Laparoscopic Cholecystectomy (DC), Influenza Vaccine (GEN), Basic Carbohydrate Counting (DC) , Meal Planning with Diabetes Exchanges (DC), Acute Wound Care (DC), Type 2 Diabetes Management for Adolescents (DC) Additional Instructions: 1. Please follow up in the [facility] clinic or PMD with in one week 2. Please take your medications as prescribed to you 3. Please return to the hospital if your symptoms worsen or return 4. Please maintain adequate hydration and oral intake Referrals: Kelvin Donnelly MD [Staff Provider] - <Lobo Keenan - Last Filed: 07/09/17 14:40> Provider - Provider Date of Admission: 07/01/17 20:51 Attending physician: Jarek Worley MD Hospital Course - Lab Results Lab Results: Most Recent Lab Values WBC 5.0 10^3/ul (4.5-11.0) 07/08/17 06:41 RBC 3.69 10^6/uL (3.5-6.1) 07/08/17 06:41 Hgb 11.2 g/dL (12.0-16.0) L 07/08/17 06:41 Hct 32.7 % (36.0-48.0) L 07/08/17 06:41 MCV 88.6 fl (80.0-105.0) 07/08/17 06:41 MCH 30.4 pg (25.0-35.0) 07/08/17 06:41 MCHC 34.3 g/dl (31.0-37.0) 07/08/17 06:41 RDW 12.1 % (11.5-14.5) 07/08/17 06:41 Plt Count 186 10^3/uL (120.0-450.0) 07/08/17 06:41 MPV 8.9 fl (7.0-11.0) 07/08/17 06:41 Gran % 59.7 % (50.0-68.0) 07/08/17 06:41 Lymph % (Auto) 30.2 % (22.0-35.0) 07/08/17 06:41 [place] % (Auto) 8.7 % (1.0-6.0) H 07/08/17 06:41 Eos % (Auto) 1.0 % (1.5-5.0) L 07/08/17 06:41 Baso % (Auto) 0.4 % (0.0-3.0) 07/08/17 06:41 Gran # 2.97 (1.4-6.5) 07/08/17 06:41 Lymph # 1.5 (1.2-3.4) 07/08/17 06:41 [place] # 0.4 (0.1-0.6) 07/08/17 06:41 Eos # 0.1 (0.0-0.7) 07/08/17 06:41 Baso # 0.02 K/mm3 (0.0-2.0) 07/08/17 06:41 PT 12.8 SECONDS (9.4-12.5) H 07/06/17 07:43 INR 1.16 (0.93-1.08) H 07/06/17 07:43 APTT 28.6 Seconds (25.1-36.5) 07/01/17 19:44 pO2 40 mm/Hg (30-55) 07/01/17 19:44 VBG pH 7.35 (7.32-7.43) 07/01/17 19:44 VBG pCO2 60.0 (40-60) 07/01/17 19:44 VBG HCO3 33.1 mmol/l (21-28) H 07/01/17 19:44 VBG Total CO2 34.9 mmol.L (22-28) H 07/01/17 19:44 VBG O2 Sat (Calc) 79.9 % (40-65) H 07/01/17 19:44 VBG Base Excess 5.6 mmol/L (0.0-2.0) H 07/01/17 19:44 VBG Potassium 4.2 mmol/L (3.6-5.2) 07/01/17 19:44 Sodium 137.0 mmol/L (132-148) 07/01/17 19:44 Chloride 100.0 mmol/L (98-107) 07/01/17 19:44 Glucose 260 mg/dl (65-105) H 07/01/17 19:44 Lactate 1.2 mmol/L (0.7-2.1) 07/01/17 19:44 FiO2 21.0 % 07/01/17 19:44 Sodium 143 mmol/L (132-148) 07/08/17 06:41 Potassium 4.5 mmol/L (3.6-5.0) 07/08/17 06:41 Chloride 104 mmol/L (98-107) 07/08/17 06:41 Carbon Dioxide 29 mmol/L (21-33) 07/08/17 06:41 Anion Gap 15 (10-20) 07/08/17 06:41 BUN 6 mg/dL (7-21) L 07/08/17 06:41 Creatinine 0.7 mg/dL (0.7-1.2) 07/08/17 06:41 Est GFR ( Amer) > 60 07/08/17 06:41 Est GFR (Non-Af Amer) > 60 07/08/17 06:41 POC Glucose (mg/dL) 166 mg/dL (65-110) H 07/08/17 11:11 Random Glucose 105 mg/dL (70-110) 07/08/17 06:41 Calcium 8.9 mg/dL (8.4-10.5) 07/08/17 06:41 Phosphorus 4.1 mg/dL (2.5-4.5) 07/05/17 10:15 Magnesium 1.8 mg/dL (1.7-2.2) 07/05/17 10:15 Total Bilirubin 0.9 mg/dL (0.2-1.3) 07/08/17 06:41 AST 77 U/L (14-36) H D 07/08/17 06:41 ALT 98 U/L (7-56) H 07/08/17 06:41 Alkaline Phosphatase 96 U/L (38-126) 07/08/17 06:41 Lactate Dehydrogenase 547 U/L (333-699) 07/01/17 19:44 Total Creatine Kinase 71 U/L (35-230) 07/01/17 19:44 Troponin I < 0.01 ng/mL 07/01/17 19:44 Total Protein 6.7 g/dL (5.8-8.3) 07/08/17 06:41 Albumin 3.5 g/dL (3.0-4.8) 07/08/17 06:41 Globulin 3.2 gm/dL 07/08/17 06:41 Albumin/Globulin Ratio 1.1 (1.1-1.8) 07/08/17 06:41 Lipase 153 U/L (23-300) 07/01/17 19:44 Venous Blood Potassium 4.2 mmol/L (3.6-5.2) 07/01/17 19:44 Urine Color Yellow (YELLOW) 07/01/17 20:45 Urine Appearance Clear (CLEAR) 07/01/17 20:45 Urine pH 6.0 (4.7-8.0) 07/01/17 20:45 Ur Specific [place] >= 1.030 (1.005-1.035) 07/01/17 20:45 Urine Protein 100 mg/dL (<30 mg/dL) H 07/01/17 20:45 Urine Glucose (UA) >=1000 mg/dL (NEGATIVE) 07/01/17 20:45 Urine Ketones Trace mg/dL (NEGATIVE) H 07/01/17 20:45 Urine Blood Negative (NEGATIVE) 07/01/17 20:45 Urine Nitrate Negative (NEGATIVE) 07/01/17 20:45 Urine Bilirubin Negative (NEGATIVE) 07/01/17 20:45 Urine Urobilinogen 0.2 E.U./dL (<1 E.U./dL) 07/01/17 20:45 Ur Leukocyte Esterase Negative Leonel/uL (NEGATIVE) 07/01/17 20:45 Urine RBC 0 - 2 /hpf (0-2) 07/01/17 20:45 Urine WBC 1 - 3 /hpf (0-6) 07/01/17 20:45 Ur Epithelial Cells 6 - 8 /hpf (0-5) 07/01/17 20:45 Amorphous Sediment Few 07/01/17 20:45 Urine Bacteria Many (NEG) 07/01/17 20:45 Urine Other Uyeast 07/01/17 20:45 Hepatitis A IgM Ab Negative (NEGATIVE) 07/02/17 08:13 Hep Bs Antigen Negative (NEGATIVE) 07/02/17 08:13 Hep B Core IgM Ab Negative (NEGATIVE) 07/02/17 08:13 Hepatitis C Antibody Negative (NEGATIVE) 07/02/17 08:13 Attending/Attestation - Attestation I have personally seen and examined this patient.: Yes I have fully participated in the care of the patient.: Yes I have reviewed all pertinent clinical information, including history, physical exam and plan: Yes Notes (Text): 07/09/17 14:36 Patient was seen and examined with medical secretary teacher. Agreed with resident assessment and plan. This is a 56 year old female with history of Hypertension, Diabetes, PUD, and cholelithiasis was admitted with abdominal pain in setting of cholecystitis s/p EUS which revealed no CBD stone and mild dilation of CBD with large GB stones, underwent laproscopic cholycystectomy yesterday, remain stable after surgery/ Patient is tolerating diet.She is cleared by surgery for discharge.Patient will be discharged home and will follow up with PCP and surgery. Management plan was discussed in detail with patient Education was provided.
== END 2017-07-08 16:35 | disposition home or self-care (01) | DRG 494 ==
LOC: ED 18:33 → ERH 20:51 → 5RNO 23:37
PROVIDERS: ADMIT Hospitalist; ATTEND Hospitalist
PROC: 0DJ08ZZ Inspection of Upper Intestinal Tract, Via Natural or Artificial Opening Endoscopic (ICD-10-PCS; 2017-07-06)
PROC: BD47ZZZ Ultrasonography of Gastrointestinal Tract (ICD-10-PCS; 2017-07-06)
PROC: 0DNE4ZZ Release Large Intestine, Percutaneous Endoscopic Approach (ICD-10-PCS; 2017-07-07)
PROC: 0FT44ZZ Resection of Gallbladder, Percutaneous Endoscopic Approach (ICD-10-PCS; principal; 2017-07-07 14:00)
DX: K80.10 Calculus of gallbladder with chronic cholecystitis without obstruction (principal); K86.89 Other specified diseases of pancreas; I10 Essential (primary) hypertension; E11.9 Type 2 diabetes mellitus without complications; K82.8 Other specified diseases of gallbladder; J45.909 Unspecified asthma, uncomplicated; K66.0 Peritoneal adhesions (postprocedural) (postinfection); M51.37 Other intervertebral disc degeneration, lumbosacral region; Z79.4 Long term (current) use of insulin; Z80.0 Family history of malignant neoplasm of digestive organs; Z80.6 Family history of leukemia; Z86.010 Personal history of colon polyps; Z87.11 Personal history of peptic ulcer disease; Z90.49 Acquired absence of other specified parts of digestive tract; Z91.19 Patient's noncompliance with other medical treatment and regimen; Z98.51 Tubal ligation status